=== PATIENT | male | born 1930 | race Caucasian/White ===

== ENCOUNTER 2016-11-14 09:03 | Day surgery (SDC) | payer MEDICARE, BC ==
[~2016-11-14] VITALS: Ht 165.1 cm; Wt 70.0 kg
[~2016-11-14 09:03] MED LIST: DICL75TA2 PO; DIVA500T33 PO; LANS15CA19 PO; RANI-270 PO; SMV40T PO; VALS80TA2 PO; ZOLP10TA PO
[2016-11-14 09:37] VITALS: Ht 165.1 cm; Wt 70.0 kg
[2016-11-14] MEDS ORDERED: PROPOFOL 20 ML ONE (09:51)
[2016-11-14 10:00] VITALS: BP 126/64; PULSE 81; RESP 16
[2016-11-14 10:55] VITALS: BP 122/78; PULSE 68; RESP 16
--- NOTE | 2016-11-14 12:26 | GILP ---
DATE OF PROCEDURE: 11/14/2016 NAME OF PROCEDURE: Esophagogastroduodenoscopy and biopsy. SURGEON: Tahir Morley MD PREOPERATIVE DIAGNOSIS: Dysphagia. POSTOPERATIVE DIAGNOSES: 1. Tortuous esophagus. 2. No esophageal stricture was identified. 3. Status post partial gastrectomy. 4. Severe bile reflux gastritis. 5. Billroth II Gastrojejunostomy. 6. Gastric mucosal biopsies were taken for Helicobacter pylori test. INDICATION FOR THE PROCEDURE: Mr. Niranjan Olivarez is an 86-year-old male patient who had dysphagia. The patient was scheduled for endoscopic examination for further evaluation. The procedure and possible complications are well explained to the patient. He understood and conse nted to the procedure. DESCRIPTION OF PROCEDURE: Under the influence of anesthesia, the gastroscope was carefully introduc ed into the esophagus and under direct vision, it was advanced to the stomach and through the anasto mosis into the small bowel loops. FINDINGS: ESOPHAGUS: The patient had a very tortuous esophagus. There was no stricture or neoplasm identifie d. STOMACH: The patient had partial gastrectomy with Billroth II gastrojejunostomy. The patient had s evere bile reflux gastritis. Gastric mucosal biopsies were taken for H. pylori test. The small bow el loops were normal. He tolerated the procedure very well and there was no complication from the procedure. At the end o f the procedure, he was awake with stable vital signs and he was discharged home to the care of his family. IMPRESSION: 1. 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 2. No stricture or neoplasm was identified. 3. Status post partial gastrectomy with Billroth II gastrojejunostomy. 4. Severe bile reflux gastritis. 5. Biopsy was taken for Helicobacter pylori test. PLAN: We will try calcium channel kailey, diltiazem ER 60 mg twice a day, which may relax the eso phagus, and which may help with dysphagia. The patient was advised to take small meals at a time an d to drink liquids in between the meals. Dictated By: TAHIR LANGE/NTS Conf#: [id number] DID#: [id number] CC: TAHIR MORLEY MD;*EndCC*
--- NOTE | 2016-11-14 16:58 | CONS ---
DATE OF ADMISSION: 11/14/2016 DATE OF CONSULTATION: TYPE OF CONSULTATION: Preoperative gastroenterology. Dear Dr. Norberto Layton: I thank you very much for this kind referral. HISTORY OF PRESENT ILLNESS: Mr. Niranjan Olivarez is an 86-year-old male patient who has been referred to me for further evaluation of dysphagia. The patient says he has got difficulty in swallowing solid and liquid. There is no past history of esophageal stricture or neoplasm. His appetite has been somewhat poor. He is not taking any nonsteroidal anti-inflammatory agents. The patient has history of peptic ulcer disease, and he is status post partial gastrectomy. He is status post cholecystectomy. He also had surgery for common bile duct stone. The patient had liver abscess in the past. There is no other history of liver disease. The patient has history of colon polyps. He denies any history of change in the bowel habit or rectal bleeding. He is hypertensive. He is not a diabetic. He does not have any heart disease. The patient has history of chronic obstructive pulmonary disease. He also has hyperlipidemia. He has history of seizure disorder. SOCIAL HISTORY: He used to smoke; now he has quit smoking. He does not abuse alcohol. FAMILY HISTORY: Negative for gastrointestinal tract neoplasm. ALLERGIES: THERE IS NO HISTORY OF SIGNIFICANT DRUG ALLERGY. MEDICATIONS: He takes medicines for high blood pressure, hyperlipidemia and seizure disorder. He does not remember the names. PHYSICAL EXAMINATION: VITAL SIGNS: He is 5 feet 5 inches tall, and he weighs 149 pounds. BMI 25. Blood pressure 124/78. HEART: Normal first and second heart sounds. LUNGS: Clear. ABDOMEN: Soft without any distention. Liver and spleen are not palpable. There are no masses. There is no focal tenderness. Normal bowel sounds are heard. CENTRAL NERVOUS SYSTEM: Examination does not reveal any focal neurological deficit. IMPRESSION: 1. Dysphagia. 2. History of peptic ulcer disease. 3. Status post partial gastrectomy. 4. Status post common bile duct stone removal. 5. Status post cholecystectomy. 6. History of liver abscess. 7. History of colon polyps. 8. Hypertension. 9. Chronic obstructive pulmonary disease. 10. Hyperlipidemia. 11. History of seizure disorder. PLAN: 1. Barium swallow for further evaluation. 2. Following barium swallow the patient may need endoscopy and possible dilatation. 3. He will need monitored anesthesia care for the procedure. 4. Follow up with the primary MD for the management of hypertension. I thank you once again. With warmest personal regards, Dictated By: TAHIR LANGE/NOVA Conf#: [id number] DID#: [id number] MTDD
== END 2016-11-14 11:17 | disposition home or self-care (01) ==
LOC: GIL 09:03
PROVIDERS: ATTEND Internal Medicine Gastroenterology
DX: K29.60 Other gastritis without bleeding (principal); I10 Essential (primary) hypertension; E78.5 Hyperlipidemia, unspecified; J44.9 Chronic obstructive pulmonary disease, unspecified
CPT/HCPCS: 87081

== ENCOUNTER 2018-07-18 12:52 | Emergency (ER) | END 2018-07-18 20:07 | disposition short-term general hospital (02) ==

== ENCOUNTER 2018-10-29 17:17 | Inpatient (IN) | payer MEDICARE, BC ==
[~2018-10-29] VITALS: Ht 157.5 cm; Wt 65.0 kg
[~2018-10-29 17:17] MED LIST changes: +ASPI-903 PO; +CARB1TAB2 PO; +CLOP75TA27 PO; -DICL75TA2 PO; +ESOM40CA PO; -LANS15CA19 PO; +LOSA50TA14 PO; +METO-429 PO; +POTA20TA96 PO; -RANI-270 PO; +SIMV40TA3 PO; -SMV40T PO; +TEMA30CA PO; -VALS80TA2 PO; -ZOLP10TA PO
[2018-10-29 17:20] VITALS: Ht 157.5 cm; Wt 65.0 kg
[2018-10-29] MEDS ORDERED: ESOM40CA PO (18:58)
[2018-10-29] MEDS ORDERED: DIVA-48 PO (18:58)
[2018-10-29] MEDS ORDERED: METO-429 PO (18:59)
[2018-10-29] MEDS ORDERED: POTA10TA37 PO (19:00)
[2018-10-29] MEDS ORDERED: TEMA30CA PO (19:01)
[2018-10-29] MEDS ORDERED: SIMV40TA2 PO (19:01)
[2018-10-29] MEDS ORDERED: ONDANSETRON 4 MG INJ IV PRN (21:30)
[2018-10-29] MEDS ORDERED: morphine 2 MG INJ IV PRN (21:30)
[2018-10-29] MEDS ORDERED: NACL 0.9% 3 ML SYG IV SCH (21:30)
[2018-10-29] MEDS ORDERED: LABETALOL HCL 20MG INJ IV PRN (21:30)
[2018-10-29] MEDS ORDERED: SOD CHLORIDE 0.9% 100 ML ONE (21:44)
[2018-10-29] MEDS ORDERED: IOHEXOL 100 ML ONE (21:44)
[2018-10-29] MEDS: VALPROATE INJ 500 MG in SOD CHLORIDE 0.9% 50 ML IVPB SCH (21:46)
[2018-10-29] MEDS: SOD CHLORIDE 0.9% 1,000 ML IV SCH (21:46)
[2018-10-29] MEDS ORDERED: LIDOCAINE 5% PATCH TD PRN (22:00)
--- NOTE | 2018-10-29 22:07 | HP ---
Date/Time of Note Date/Time of Note DATE: 10/29/18 TIME: 22:06 Assessment/Plan VTE Prophylaxis Pharmacological prophylaxis: other Lines/Catheters IV Catheter Type (from Nrsg): Saline Lock Assessment/Plan Hospital Course Objective Physical exam General: Patient is laying in bed and answers questions appropriately Mentation: Patient is alert and oriented 4, Head: Normocephalic atraumatic Eyes: EOMI, pupils reactive to light Neck: Supple, nontender, midline Respiratory: Clear to auscultation bilaterally Cardiovascular: regular rate, no obvious murmurs Gastrointestinal: non-tender to palpation, bowel sounds heard. Neurological: Moves all extremities spontaneously, equal bilateral muscle strength in lower extremity, however right upper extremity is marginally weaker when compared to the left upper extremity with mild numbness Musculoskeletal: Right rib area tender Assessment and plan Acute versus acute on chronic subarachnoid hemorrhage -Unsure if the brain bleed was actually a subarachnoid hemorrhage at the previous hospital, even if it was, ER physician spoke to the radiologist who said that what is going on is an acute phenomenon. -Neurosurgery, Dr. Lind on board, recs CT angio for aneurysm -Neurology, Dr. collado, consulted -Patient has been off aspirin and Plavix after extensive confirmation with both patient's daughter and patient's for approximately 8 days and was also given transfusions at [facility] for previous brain bleed. -Patient on Depakote at home for mood disorder, may help for possible seizures as well, continue IV formulation -N.p.o. -Control blood pressure -IV fluid Right upper extremity numbness -Patient is not a TPA candidate given over 48 hours since onset as well as current brain bleed -Neurology has been consulted, Dr. Collado Right rib pain -Due to mechanical fall versus syncope -Rib x-ray pending -Lidocaine patch and IV pain medication as needed Questionable pneumonia on chest x-ray -Unlikely, however will start empiric antibiotics as patient was recently hospitalized for multiple days, will defer to day team to titrate off based on symptoms and other findings. Mechanical fall versus syncope -Unsure which actually happened, patient does state that he passes out when he does fall, MRI is recommended once patient is more stable -Echo and ultrasound carotid Mood disorder, bipolar -Continue Depakote IV Hypertension, questionable coronary artery disease -Off aspirin Plavix for over 1 week given previous diagnosis of brain bleed at outside hospital -Labetalol as needed to control blood pressure -Resume home meds when able to tolerate p.o. GERD -Protonix IV Disposition -ICU care, neurosurgery and neurology recommendations appreciated, repeat CT scans pending Result Diagram: 10/29/18190610/29/181906 Results 24hrs Laboratory Tests Test 10/29/18 19:07 10/29/18 19:17 White Blood Count 5.7 Red Blood Count 3.19 L Hemoglobin 9.9 L Hematocrit 30.9 L Mean Corpuscular Volume 96.9 Mean Corpuscular Hemoglobin 31.0 Mean Corpuscular Hemoglobin Concent 32.0 Red Cell Distribution Width 15.6 H Platelet Count 92 L Mean Platelet Volume 9.7 Immature Granulocytes % 1.000 H Neutrophils % 55.9 Lymphocytes % 27.8 Monocytes % 13.5 H Eosinophils % 1.6 Basophils % 0.2 Nucleated Red Blood Cells % 0.0 Immature Granulocytes # 0.060 H Neutrophils # 3.2 Lymphocytes # 1.6 Monocytes # 0.8 Eosinophils # 0.1 Basophils # 0.0 Nucleated Red Blood Cells # 0.0 Sodium Level 142 Potassium Level 4.6 Chloride Level 107 Carbon Dioxide Level 27 Anion Gap 8 Blood Urea Nitrogen 12 Creatinine 1.00 Est Glomerular Filtrat Rate mL/min Glucose Level 84 Calcium Level 8.3 L Total Bilirubin 0.1 L Direct Bilirubin 0.00 Indirect Bilirubin 0.1 Aspartate Amino Transf (AST/SGOT) 17 Alanine Aminotransferase (ALT/SGPT) 18 Alkaline Phosphatase 52 Total Protein 5.8 L Albumin 3.0 L Globulin 2.80 Albumin/Globulin Ratio 1.07 Lipase 121 Bedside Urine pH (LAB) 6.0 Bedside Urine Protein (LAB) Negative Bedside Urine Glucose (UA) Negative Bedside Urine Ketones (LAB) 1+ H Bedside Urine Blood Negative Bedside Urine Nitrite (LAB) Negative Bedside Urine Leukocyte Esterase (L Negative HPI/ROS Admit Date/Time Admit Date/Time Hx of Present Illness Patient is a elderly male with a past medical history significant for recent brain bleed at [facility], dyslipidemia, bipolar, acid reflux who presents to [facility] after continuing to fall and having right upper extremity numbness and difficulty ambulating since discharged approximately 5 days ago from [facility]. Patient was originally admitted to [facility] for a fall and patient had 7 stitches as well as a diagnosis of some sort of brain bleed, patient and patient's family did not know the exact terminology they think that it may be a subarachnoid hemorrhage. Patient was explained to stop aspirin and Plavix and has been off aspirin and Plavix for at least 1 week at this time. However patient continued to have mobility issues after discharge and fell yesterday hurting his right rib area. Patient stated that the numbness associated with the right upper extremity has been going on for the past 2 days has not worsened and affected his strength. Patient does not complaining of any muscle weakness at this time but states that he really has difficulty moving due to the pain of his right rib area. Patient denies chest pain, shortness of breath, nausea, vomiting, abdominal pain, leg pain PMH/Family/Social Past Medical History Medications Current Medications Sodium Chloride 1,000 ml @ 70 mls/hr [id number] IV Last administered on 10/29/18at 21:46; Admin Dose 70 MLS/HR; Start 10/29/18 at 21:20 IV Flush (NS 3 ml) 3 ml PER PROTOCOL IV ; Start 10/29/18 at 21:30 Ondansetron HCl (Zofran Inj) 4 mg Q6H PRN IV NAUSEA/VOMITING; Start 10/29/18 at 21:30 Morphine Sulfate (morphine) 2 mg Q4H PRN IV .PAIN 7-10; Start 10/29/18 at 21:30 Pantoprazole (Protonix Iv) 40 mg DAILY@06 IV ; Start 10/30/18 at 06:00 Labetalol HCl (Labetalol) 10 mg Q4 PRN IV sbp >160; Start 10/29/18 at 21:30 Valproate Sodium 500 mg/Sodium Chloride 55 ml @ 55 mls/hr TID IVPB Last administered on 10/29/18at 21:46; Admin Dose 55 MLS/HR; Start 10/29/18 at 21:30 Coded Allergies: No Known Allergies (Verified Allergy, Mild, 10/29/18) Social History Smoking Status: Former smoker Exam/Review of Systems Vital Signs Vitals Vital Signs Date Temp Pulse Resp B/P (MAP) Pulse Ox O2 O2 Flow FiO2 Time Delivery Rate 10/29/18 97.5 56 20 131/50 99 Room Air 18:46 (77) ADA GARNER Oct 29, 2018 22:07
[2018-10-30] VITALS (30 sets, daily range): BP systolic 101–162; BP diastolic 52–89; PULSE 51–70; RESP 15–22
--- NOTE | 2018-10-30 00:10 | ERD ---
ER Documentation Chief Complaint Chief Complaint fall HPI The patient is a 88-year-old male, presenting to the ER because of right-sided chest pain, right upper extremity weak after he fell last night. He denies any head trauma, headache, facial pain, neck pain, chest pain, dyspnea, abdominal pain, vomiting. He was admitted at [facility] a week ago due to head trauma, according to the daughter he had an intracranial bleed, details unclear Past medical history: Hypertension, dyslipidemia, CAD, epilepsy, COPD, bipolar Past surgical history: Abdominal aortic aneurysm repair, partial gastrectomy, appendectomy, cholecystectomy ROS All systems reviewed and are negative except as per history of present illness. Medications Home Meds Reported Medications Temazepam* (Temazepam*) 30 Mg Capsule, 30 MG PO HS PRN for INSOMNIA, CAP 10/29/18 Simvastatin* (Zocor*) 40 Mg Tablet, 40 MG PO QHS, #30 TAB 10/29/18 Potassium Chloride* (K-Dur*) 10 Meq Tab.prt.sr, 10 MEQ PO DAILY, TAB 10/29/18 Metoprolol Tartrate* (Lopressor*) 50 Mg Tab, 50 MG PO BID, #60 TAB 10/29/18 Esomeprazole Mag Trihydrate (Nexium) 40 Mg Capsule.dr, 40 MG PO DAILY, #30 CAP 10/29/18 Divalproex Sodium* (Depakote*) 500 Mg Tablet.dr, 500 MG PO TID, #90 TAB 10/29/18 Discontinued Reported Medications Temazepam* (Temazepam*) 30 Mg Capsule, 30 MG PO HS PRN for INSOMNIA, CAP 07/18/18 Metoprolol Tartrate* (Lopressor*) 50 Mg Tab, 50 MG PO BID, #60 TAB 07/18/18 Clopidogrel Bisulfate (Clopidogrel) 75 Mg Tablet, 75 MG PO DAILY, #30 TAB 07/18/18 Aspirin* (Aspirin* Chew) 81 Mg Tab.chew, 81 MG PO DAILY, TAB.CHEW 07/18/18 Carbidopa/Levodopa (Sinemet 25-100 mg Tablet) 1 Each Tablet, 1 EACH PO TID, TAB 07/18/18 Potassium Chloride* (Potassium Chloride*) 20 Meq Tablet.er, 10 MEQ PO DAILY, TAB.SA 07/18/18 Losartan Potassium* (Losartan Potassium*) 50 Mg Tablet, 50 MG PO DAILY, TAB 07/18/18 Esomeprazole Mag Trihydrate (Nexium) 40 Mg Capsule.dr, 40 MG PO AC BREAKFAST, #30 CAP 07/18/18 Simvastatin (Simvastatin) 40 Mg Tablet, 40 MG PO DAILY 07/16/11 Divalproex Sodium (Depakote) 500 Mg Tablet.dr, 500 MG PO TID 07/16/11 Allergies Allergies: Coded Allergies: No Known Allergies (Verified Allergy, Mild, 10/29/18) PMhx/Soc History of Surgery: Yes (PARTIAL GASTRECTOMY, APPY, OPEN CHOLEY) Anesthesia Reaction: No Hx Neurological Disorder: Yes (SEIZURE DISORDER) Hx Respiratory Disorders: Yes (COPD) Hx Cardiac Disorders: Yes (HTN, HIGH CHOL) Hx Psychiatric Problems: Yes (BIPOLAR) Hx Miscellaneous Medical Probl: Yes (Abdominal aneurysm) Hx Alcohol Use: No Hx Substance Use: No Hx Tobacco Use: No (QUIT 7 YRS AGO) Smoking Status: Former smoker Physical Exam Vitals Vital Signs Date Temp Pulse Resp B/P (MAP) Pulse Ox O2 O2 Flow FiO2 Time Delivery Rate 10/29/18 58 17 142/67 98 Room Air 23:00 (92) 10/29/18 75 20 123/91 99 Room Air 22:00 (102) 10/29/18 60 18 131/61 99 Room Air 21:00 (84) 10/29/18 61 19 124/61 99 Room Air 20:00 (82) 10/29/18 64 19 125/62 99 Room Air 19:00 (83) 10/29/18 97.5 56 20 131/50 99 Room Air 18:46 (77) 10/29/18 98.1 64 19 114/61 100 17:20 (78) Physical Exam Const: No acute distress. Head: Atraumatic. left parietal with ladarius Eyes: Normal Conjunctiva. ENT: Normal External Ears, Nose and Mouth. Neck: Full range of motion. No meningismus. Resp: Clear to auscultation bilaterally. Cardio: Regular rate and rhythm. Abd: Soft, non distended, normal bowel sounds, non tender. Skin: No petechiae or rashes. Back: No midline or flank tenderness. Ext: No cyanosis, or edema. Ecchymosis Neur: Awake and alert. No focal deficit Psych: Normal Mood and Affect. Result Diagram: 2/13/19 1907 2/13/19 1907 Results 24 hrs Laboratory Tests Test 10/29/18 19:07 10/29/18 19:17 White Blood Count 5.7 10^3/ul Red Blood Count 3.19 10^6/ul Hemoglobin 9.9 g/dl Hematocrit 30.9 % Mean Corpuscular Volume 96.9 fl Mean Corpuscular Hemoglobin 31.0 pg Mean Corpuscular Hemoglobin Concent 32.0 g/dl Red Cell Distribution Width 15.6 % Platelet Count 98 10^3/UL Mean Platelet Volume 9.7 fl Immature Granulocytes % 1.000 % Neutrophils % 55.9 % Lymphocytes % 27.8 % Monocytes % 13.5 % Eosinophils % 1.6 % Basophils % 0.2 % Nucleated Red Blood Cells % 0.0 /100WBC Immature Granulocytes # 0.060 10^3/ul Neutrophils # 3.2 10^3/ul Lymphocytes # 1.6 10^3/ul Monocytes # 0.8 10^3/ul Eosinophils # 0.1 10^3/ul Basophils # 0.0 10^3/ul Nucleated Red Blood Cells # 0.0 10^3/ul Prothrombin Time 14.2 Sec Prothrombin Time Ratio 1.1 INR International Normalized Ratio 1.09 Activated Partial Thromboplast Time 29.0 Sec Thrombin Time 15.4 SEC Sodium Level 142 mmol/L Potassium Level 4.6 mmol/L Chloride Level 107 mmol/L Carbon Dioxide Level 27 mmol/L Anion Gap 8 Blood Urea Nitrogen 12 mg/dl Creatinine 1.00 mg/dl Est Glomerular Filtrat Rate mL/min mL/min Glucose Level 84 mg/dl Calcium Level 8.3 mg/dl Total Bilirubin 0.1 mg/dl Direct Bilirubin 0.00 mg/dl Indirect Bilirubin 0.1 mg/dl Aspartate Amino Transf (AST/SGOT) 17 IU/L Alanine Aminotransferase (ALT/SGPT) 18 IU/L Alkaline Phosphatase 52 IU/L Total Protein 5.8 g/dl Albumin 3.0 g/dl Globulin 2.80 g/dl Albumin/Globulin Ratio 1.07 Lipase 121 U/L Valproic Acid (Depakene) Level 89 ug/ml Bedside Urine pH (LAB) 6.0 Bedside Urine Protein (LAB) Negative Bedside Urine Glucose (UA) Negative Bedside Urine Ketones (LAB) 1+ Bedside Urine Blood Negative Bedside Urine Nitrite (LAB) Negative Bedside Urine Leukocyte Esterase (L Negative Current Medications Medications Dose Sig/Kevin Start Time Status Last (Trade) Ordered Route PRN Stop Time Admin Dose Reason Admin Sodium 1,000 ml @ [id number] IV 10/29/18 10/29/18 Chloride 70 mls/hr 21:20 21:46 IV Flush 3 ml PER 10/29/18 (NS 3 ml) PROTOCOL IV 21:30 Ondansetron 4 mg Q6H PRN 10/29/18 HCl (Zofran IV 21:30 Inj) NAUSEA/VOMITI NG Morphine 2 mg Q4H PRN 10/29/18 Sulfate IV .PAIN 21:30 (morphine) 7-10 40 mg DAILY@06 10/30/18 Pantoprazole IV 06:00 (Protonix Iv) Labetalol 10 mg Q4 PRN IV 10/29/18 HCl sbp >160 21:30 (Labetalol) Valproate 55 ml @ 55 TID IVPB 10/29/18 10/29/18 Sodium 500 mls/hr 21:30 21:46 mg/Sodium Chloride IV Flush 10 ml STK-MED 10/29/18 DC 10/29/18 (NS 10 ml) ONCE .ROUTE 21:44 21:53 10/29/18 21:45 Sodium 100 ml @ ud STK-MED 10/29/18 DC 10/29/18 Chloride ONCE .ROUTE 21:44 21:53 10/29/18 21:45 Iohexol 100 ml @ ud STK-MED 10/29/18 DC 10/29/18 ONCE .ROUTE 21:44 21:54 10/29/18 21:45 Cefepime HCl 50 ml @ Q12 IVPB 10/29/18 100 mls/hr 22:00 Lidocaine 1 patch DAILY PRN 10/29/18 (Lidoderm) TD right rib 22:00 pain Procedures/[place] [id number] Radiology Main Line: [phone] DIAGNOSTIC IMAGING REPORT Patient: INOCENTE ESPOSITO : 1930 Age: 88 Sex: M MR #: [id number] DOS: 10/29/18 1905 Ordering MD: MITCH BEAULIEU MD Location: E/R Room/Bed: PROCEDURE: CT Head without. CLINICAL INDICATION: Trauma status post fall. TECHNIQUE: The study was performed utilizing a multi-slice, multidetector CT scanner. Direct spiral 1 mm axial sections were obtained through the head without the use of intravenous contrast material. 1 or more of the following dose reduction techniques were utilized: Automated exposure control, adjustment of the mA and/or kV according to patient's size, iterative reconstruction technique. Coronal and sagittal reformations were obtained. The images were reviewed on a PACS workstation. DICOM images are available. RADIATION DOSE: CTDIvol: 39.2 mGy mGy DLP: 634.23 mGy.cm mGy-cm COMPARISON: 07/18/2018 FINDINGS: There is a mild amount of subarachnoid hemorrhage involving the left superior frontal lobe (axial series image 24), involving the precentral gyrus. There is a mild amount of subarachnoid hemorrhage involving the right parietal lobe sees axial series image 25) as well as involving the right frontal operculum (axial series image 13). There is no evidence of subdural hemorrhage. There is no intraparenchymal hemorrhage, mass lesion, midline shift or hydrocephalus. There is moderate prominence of the cerebral sulci, lateral and third ventricles. There is mild to moderate patchy periventricular and subcortical white matter hypodensity. There is mild arteriosclerotic calcification of the parasellar internal carotid arteries. The uriarte-white matter differentiation is preserved. The basal cisterns are patent. The midline structures are intact. 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 The orbits, calvarium and extracranial soft tissues are normal in appearance. The visualized paranasal sinuses, mastoid air cells and middle ear cavities are normally aerated. There are shahid gical ladarius in the left parietal soft tissues, from laceration repair. IMPRESSION: 1. Hyperdense/acute subarachnoid hemorrhage involving the left superior frontal lobe, right superior parietal lobe, and right frontal operculum. No significant gyral swelling or evidence of infarct at this time. No definite subdural or epidural hemorrhage is seen. 2. Moderate peripheral and central cerebral volume loss. 3. Mild to moderate patchy periventricular and subcortical white matter hypodensity, likely related to chronic microangiopathic changes. 4. No intraparenchymal hemorrhage, mass lesion or hydrocephalous. CRITICAL RESULT: The above findings were discussed with Patient's physician Mitch Beaulieu by telephone on 10/29/2018 8:41:32 PM. RPTAT: HGAS .Washington Knight MD, Date Time Electronically viewed and signed by .Washington Knight MD, on 10/29/2018 20:46 .S/ CC: MITCH BEAULIEU MD [id number] [place] [id number] Radiology Main Line: [phone] DIAGNOSTIC IMAGING REPORT Patient: INOCENTE ESPOSITO DOB: 1930 Age: 88 Sex: M MR #: [id number] DOS: 10/29/18 190 Ordering MD: MITCH BEAULIEU MD Location: E/R Room/Bed: PROCEDURE: XR Chest. CLINICAL INDICATION: Trauma TECHNIQUE: Frontal chest x-ray was obtained. COMPARISON: Chest x-ray January 03, 2017 FINDINGS: The heart is not enlarged. Mediastinum is not widened. There is nodular consolidation in the left perihilar mid lung field.. Lungs are clear of any infiltrates. There is no effusion or pneumothorax. The osseous structures appear normal. IMPRESSION: Nodular infiltrate in the perihilar left mid lung field. Question contusion versus pneumonia. No fracture, hemothorax or pneumothorax is visualized. .Jorge Abrams MD, Date Time Electronically viewed and signed by .Jorge Abrams MD, MD on 10/29/2018 19:43 .A/ CC: MITCH BEAULIEU MD [phone] [place] [address] Radiology Main Line: [phone] DIAGNOSTIC IMAGING REPORT Patient: INOCENTE ESPOSITO : 1930 Age: 88 Sex: M [id number]: 10/29/18 0000 Ordering MD: ADA HANDLEY DO Location: E/R Room/Bed: PROCEDURE: Xray right ribs. CLINICAL INDICATION: Trauma. Right rib pain. TECHNIQUE: Three views of the right ribs. COMPARISON: None available. FINDINGS: There is several old healed fractures of the lower right ribs. There is no acute fracture. There is no lytic or blastic lesion. The right lung is unremarkable. Right chest wall soft tissues are normal. IMPRESSION: 1. There are old healed right rib fractures. 2. No acute right rib fracture. 3. Otherwise unremarkable study. RPTAT: QQ .Saad Eddy MD, Date Time Electronically viewed and signed by .Saad Eddy MD, MD on 10/29/2018 22:38 .R/ CC: ADA HANDLEY [phone] EKG: Read by emergency physician Rate/Rhythm: Normal Sinus Rhythm 61 beats/min QRS, ST, T-waves: No ST elevation, no T inversion, LAD Impression: Abnormal EKG Consultation: I discussed the patient with the on-call neurosurgeon Dr Soliman, was made aware of the lab, the treatment, the CT scan finding. He accepted the consult and recommended CTA MEDICAL MAKING DECISION: The patient is a 88-year-old male, presenting with acute subarachnoid hemorrhage, ?nodular infiltrate. I do not suspect the patient had pneumonia The differential diagnoses considered include but are not limited to subarachnoid hemorrhage, occult trauma, CVA, meningitis, encephalitis, hypertension, tension, migraine, cluster, narcotic withdrawal, cervical spine disease. Departure Diagnosis: Primary Impression: Subarachnoid hemorrhage Additional Impressions: Anemia Thrombocytopenia Condition: Critical Comments Critical Care: Time: 35 minutes excluding all billable procedures. Treatments/Evaluations: Close monitoring and treatment of unstable vital signs, cardiorespiratory, and neurologic status, while maintaining tight balance of fluid, respiratory, and cardiac interventions. I discussed the findings with the patient. I discussed the patient with the hospitalist Dr Handley at 9:10p. who was made aware of the lab, the treatment, the patient condition. The patient is admitted to ICU Disclaimer: Inadvertent spelling and grammatical errors are likely due to EHR/dictation software use and do not reflect on the overall quality of patient care. Also, please note that the electronic time recorded on this note does not necessarily reflect the actual time of the patient encounter. MITCH BEAULIEU MD Oct 30, 2018 00:10
[2018-10-30] MEDS: CEFEPIME 1GM/50 ML (PMX) 50 ML IVPB SCH ×3 (00:22→21:59)
[2018-10-30] MEDS: PANTOPRAZOLE 40 MG INJ IV SCH ×2 (05:59→08:43)
[2018-10-30] MEDS: SOD CHLORIDE 0.9% 1,000 ML IV SCH (06:45)
--- NOTE | 2018-10-30 08:00 | CONS ---
Assessment/Plan Assessment/Plan Assessment/Plan (Daily) Traumatic subarachonid hemorrhage; CTH c/w known history of prior fall about a week ago. No acute intracranial process / no indication for neurosurgical intervention. He may eat and transfer out of ICU from my POV. He has symptoms of right sided numbness that may be related to cortical irritation? TIA? he may benefit from neurology evaluation. Consultation Date/Type/Reason Admit Date/Time Date of Consultation: Oct 30, 2018 Type of Consult neurology Reason for Consultation subarachnoid hemorrhage Date/Time of Note DATE: 10/30/18 TIME: 07:50 Hx of Present Illness 88 year old male with history of falls, multiple hospitalizations over the past six months. Was recently discharged from OSH after fall with left parietal laceration repaired with ladarius. CT in ER shows small blush of subacute/ evolving subarachonid hemorrhage. There is no opacification of basilar cisterns or Sylvian fissure. No evidence of aneurysm or other vascular malformation. Past Medical History Home Meds Reported Medications Temazepam* (Temazepam*) 30 Mg Capsule, 30 MG PO HS PRN for INSOMNIA, CAP 10/29/18 Simvastatin* (Zocor*) 40 Mg Tablet, 40 MG PO QHS, #30 TAB 10/29/18 Potassium Chloride* (K-Dur*) 10 Meq Tab.prt.sr, 10 MEQ PO DAILY, TAB 10/29/18 Metoprolol Tartrate* (Lopressor*) 50 Mg Tab, 50 MG PO BID, #60 TAB 10/29/18 Esomeprazole Mag Trihydrate (Nexium) 40 Mg Capsule.dr, 40 MG PO DAILY, #30 CAP 10/29/18 Divalproex Sodium* (Depakote*) 500 Mg Tablet.dr, 500 MG PO TID, #90 TAB 10/29/18 Discontinued Reported Medications Temazepam* (Temazepam*) 30 Mg Capsule, 30 MG PO HS PRN for INSOMNIA, CAP 07/18/18 Metoprolol Tartrate* (Lopressor*) 50 Mg Tab, 50 MG PO BID, #60 TAB 07/18/18 Clopidogrel Bisulfate (Clopidogrel) 75 Mg Tablet, 75 MG PO DAILY, #30 TAB 07/18/18 Aspirin* (Aspirin* Chew) 81 Mg Tab.chew, 81 MG PO DAILY, TAB.CHEW 07/18/18 Carbidopa/Levodopa (Sinemet 25-100 mg Tablet) 1 Each Tablet, 1 EACH PO TID, TAB 07/18/18 Potassium Chloride* (Potassium Chloride*) 20 Meq Tablet.er, 10 MEQ PO DAILY, TAB.SA 07/18/18 Losartan Potassium* (Losartan Potassium*) 50 Mg Tablet, 50 MG PO DAILY, TAB 07/18/18 Esomeprazole Mag Trihydrate (Nexium) 40 Mg Capsule.dr, 40 MG PO AC BREAKFAST, #30 CAP 07/18/18 Simvastatin (Simvastatin) 40 Mg Tablet, 40 MG PO DAILY 07/16/11 Divalproex Sodium (Depakote) 500 Mg Tablet.dr, 500 MG PO TID 07/16/11 Medications Current Medications Sodium Chloride 1,000 ml @ 70 mls/hr [id number] IV Last administered on 10/29/18at 21:46; Admin Dose 70 MLS/HR; Start 10/29/18 at 21:20 IV Flush (NS 3 ml) 3 ml PER PROTOCOL IV ; Start 10/29/18 at 21:30 Ondansetron HCl (Zofran Inj) 4 mg Q6H PRN IV NAUSEA/VOMITING; Start 10/29/18 at 21:30 Morphine Sulfate (morphine) 2 mg Q4H PRN IV .PAIN 7-10; Start 10/29/18 at 21:30 Pantoprazole (Protonix Iv) 40 mg DAILY@06 IV Last administered on 10/30/18at 05:59; Admin Dose 40 MG; Start 10/30/18 at 06:00 Labetalol HCl (Labetalol) 10 mg Q4 PRN IV sbp >160; Start 10/29/18 at 21:30 Valproate Sodium 500 mg/Sodium Chloride 55 ml @ 55 mls/hr TID IVPB Last administered on 10/29/18at 21:46; Admin Dose 55 MLS/HR; Start 10/29/18 at 21:30 Cefepime HCl 50 ml @ 100 mls/hr Q12 IVPB Last administered on 10/30/18at 00:22; Admin Dose 100 MLS/HR; Start 10/29/18 at 22:00 Lidocaine (Lidoderm) 1 patch DAILY PRN TD right rib pain; Start 10/29/18 at 22:00 Allergies: Coded Allergies: No Known Allergies (Verified Allergy, Mild, 10/29/18) Social History Smoking Status: Former smoker Exam/Review of Systems Exam Vitals Vital Signs Date Temp Pulse Resp B/P (MAP) Pulse Ox O2 O2 Flow FiO2 Time Delivery Rate 10/30/18 62 19 150/66 97 Room Air 06:00 (94) 10/30/18 98.4 04:00 Intake and Output 10/29/18 10/29/18 10/30/18 1515:00 23:00 07:00 IntakeIntake Total 70 ml 490 ml OutputOutput Total 950 ml BalanceBalance 70 ml -460 ml Constitutional: alert, oriented, well developed Psych: no complaints, nl mood/affect Head: normocephalic, lacerations Eyes: nl conjunctiva, EOMI ENMT: nl external ears & nose, nl lips & teeth Neck: supple, non-tender 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 Neck non-tender and supple with full ROM. Results Result Diagram: 10/30/18 0540 10/30/18 0540 Results 24hrs Laboratory Tests Test 10/29/18 19:07 10/29/18 19:17 10/30/18 05:40 White Blood Count 5.7 4.3 #L Red Blood Count 3.19 L 3.05 L Hemoglobin 9.9 L 9.5 L Hematocrit 30.9 L 29.0 L Mean Corpuscular Volume 96.9 95.1 Mean Corpuscular Hemoglobin 31.0 31.1 Mean Corpuscular Hemoglobin Concent 32.0 32.8 Red Cell Distribution Width 15.6 H 15.6 H Platelet Count 98 L 84 L Mean Platelet Volume 9.7 9.9 Immature Granulocytes % 1.000 H 1.200 H Neutrophils % 55.9 46.7 Lymphocytes % 27.8 32.9 Monocytes % 13.5 H 16.7 H Eosinophils % 1.6 2.3 Basophils % 0.2 0.2 Nucleated Red Blood Cells % 0.0 0.0 Immature Granulocytes # 0.060 H 0.050 H Neutrophils # 3.2 2.0 Lymphocytes # 1.6 1.4 Monocytes # 0.8 0.7 Eosinophils # 0.1 0.1 Basophils # 0.0 0.0 Nucleated Red Blood Cells # 0.0 0.0 Prothrombin Time 14.2 Prothrombin Time Ratio 1.1 INR International Normalized Ratio 1.09 Activated Partial Thromboplast Time 29.0 Thrombin Time 15.4 Sodium Level 142 140 Potassium Level 4.6 4.2 Chloride Level 107 106 Carbon Dioxide Level 27 27 Anion Gap 8 7 Blood Urea Nitrogen 12 12 Creatinine 1.00 0.96 Est Glomerular Filtrat Rate mL/min Glucose Level 84 77 Calcium Level 8.3 L 8.0 L Total Bilirubin 0.1 L 0.1 L Direct Bilirubin 0.00 0.00 Indirect Bilirubin 0.1 0.1 Aspartate Amino Transf (AST/SGOT) 17 15 Alanine Aminotransferase (ALT/SGPT) 18 18 Alkaline Phosphatase 52 48 Total Protein 5.8 L 5.4 L Albumin 3.0 L 2.7 L Globulin 2.80 2.70 Albumin/Globulin Ratio 1.07 1.00 Lipase 121 Valproic Acid (Depakene) Level 89 Bedside Urine pH (LAB) 6.0 Bedside Urine Protein (LAB) Negative Bedside Urine Glucose (UA) Negative Bedside Urine Ketones (LAB) 1+ H Bedside Urine Blood Negative Bedside Urine Nitrite (LAB) Negative Bedside Urine Leukocyte Esterase (L Negative Hemoglobin A1c 4.8 Magnesium Level 2.0 Triglycerides Level 82 Cholesterol Level 74 L LDL Cholesterol, Calculated 28 HDL Cholesterol 30 L Cholesterol/HDL Ratio 2.4 Medications Medication Current Medications Sodium Chloride 1,000 ml @ 70 mls/hr [id number] IV Last administered on 10/29/18at 21:46; Admin Dose 70 MLS/HR; Start 10/29/18 at 21:20 IV Flush (NS 3 ml) 3 ml PER PROTOCOL IV ; Start 10/29/18 at 21:30 Ondansetron HCl (Zofran Inj) 4 mg Q6H PRN IV NAUSEA/VOMITING; Start 10/29/18 at 21:30 Morphine Sulfate (morphine) 2 mg Q4H PRN IV .PAIN 7-10; Start 10/29/18 at 21:30 Pantoprazole (Protonix Iv) 40 mg DAILY@06 IV Last administered on 10/30/18at 05:59; Admin Dose 40 MG; Start 10/30/18 at 06:00 Labetalol HCl (Labetalol) 10 mg Q4 PRN IV sbp >160; Start 10/29/18 at 21:30 Valproate Sodium 500 mg/Sodium Chloride 55 ml @ 55 mls/hr TID IVPB Last administered on 10/29/18at 21:46; Admin Dose 55 MLS/HR; Start 10/29/18 at 21:30 Cefepime HCl 50 ml @ 100 mls/hr Q12 IVPB Last administered on 10/30/18at 00:22; Admin Dose 100 MLS/HR; Start 10/29/18 at 22:00 Lidocaine (Lidoderm) 1 patch DAILY PRN TD right rib pain; Start 10/29/18 at 22:00 BUFFY ESCALANTE MD Oct 30, 2018 08:00
--- NOTE | 2018-10-30 10:41 | PN ---
Date/Time of Note Date/Time of Note DATE: 10/30/18 TIME: 10:41 Assessment/Plan VTE Prophylaxis SCD applied (from Nsg): Yes Pharmacological prophylaxis: NA/contraindicated Pharm contraindication: bleeding Lines/Catheters IV Catheter Type (from Nrsg): Peripheral IV Urinary Cath still in place: No Assessment/Plan Assessment/Plan 1. Acute ICH, Subarachoid hemorrhage 2. RUE weakness 3. h/o HTN 4. atherosclerotic vascular disease 5. mechanical fall vs syncope 6. H/o HL 7. h/o Partial gastrectomy 8. H/o Bioplar disorder as per history Plan: seen in ICU, s/p Neurosurgery evluation by Dr. 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 Khan has been consulted on the case SCD for DVT prophylaixs will follow up Result Diagram: 10/30/18 0540 10/30/18 0540 Results 24hrs Laboratory Tests Test 10/29/18 19:07 10/29/18 19:17 10/30/18 05:40 White Blood Count 5.7 4.3 #L Red Blood Count 3.19 L 3.05 L Hemoglobin 9.9 L 9.5 L Hematocrit 30.9 L 29.0 L Mean Corpuscular Volume 96.9 95.1 Mean Corpuscular Hemoglobin 31.0 31.1 Mean Corpuscular Hemoglobin Concent 32.0 32.8 Red Cell Distribution Width 15.6 H 15.6 H Platelet Count 98 L 84 L Mean Platelet Volume 9.7 9.9 Immature Granulocytes % 1.000 H 1.200 H Neutrophils % 55.9 46.7 Lymphocytes % 27.8 32.9 Monocytes % 13.5 H 16.7 H Eosinophils % 1.6 2.3 Basophils % 0.2 0.2 Nucleated Red Blood Cells % 0.0 0.0 Immature Granulocytes # 0.060 H 0.050 H Neutrophils # 3.2 2.0 Lymphocytes # 1.6 1.4 Monocytes # 0.8 0.7 Eosinophils # 0.1 0.1 Basophils # 0.0 0.0 Nucleated Red Blood Cells # 0.0 0.0 Prothrombin Time 14.2 Prothrombin Time Ratio 1.1 INR International Normalized Ratio 1.09 Activated Partial Thromboplast Time 29.0 Thrombin Time 15.4 Sodium Level 142 140 Potassium Level 4.6 4.2 Chloride Level 107 106 Carbon Dioxide Level 27 27 Anion Gap 8 7 Blood Urea Nitrogen 12 12 Creatinine 1.00 0.96 Est Glomerular Filtrat Rate mL/min Glucose Level 84 77 Calcium Level 8.3 L 8.0 L Total Bilirubin 0.1 L 0.1 L Direct Bilirubin 0.00 0.00 Indirect Bilirubin 0.1 0.1 Aspartate Amino Transf (AST/SGOT) 17 15 Alanine Aminotransferase (ALT/SGPT) 18 18 Alkaline Phosphatase 52 48 Total Protein 5.8 L 5.4 L Albumin 3.0 L 2.7 L Globulin 2.80 2.70 Albumin/Globulin Ratio 1.07 1.00 Lipase 121 Valproic Acid (Depakene) Level 89 Bedside Urine pH (LAB) 6.0 Bedside Urine Protein (LAB) Negative Bedside Urine Glucose (UA) Negative Bedside Urine Ketones (LAB) 1+ H Bedside Urine Blood Negative Bedside Urine Nitrite (LAB) Negative Bedside Urine Leukocyte Esterase (L Negative Hemoglobin A1c 4.8 Magnesium Level 2.0 Triglycerides Level 82 Cholesterol Level 74 L LDL Cholesterol, Calculated 28 HDL Cholesterol 30 L Cholesterol/HDL Ratio 2.4 Subjective 24 Hr Interval Summary Free Text/Dictation pt remains stable,s/p Neurosurgery evaluation, stable SAH on follow up CT scan Exam/Review of Systems Exam Vitals Vital Signs Date Temp Pulse Resp B/P (MAP) Pulse Ox O2 O2 Flow FiO2 Time Delivery Rate 10/30/18 59 18 99 08:15 10/30/18 97.7 151/70 Room Air 08:00 (97) Intake and Output 10/29/18 10/29/18 10/30/18 1515:00 23:00 07:00 IntakeIntake Total 70 ml 490 ml OutputOutput Total 950 ml BalanceBalance 70 ml -460 ml Constitutional: alert, distress Head: normocephalic Eyes: nl conjunctiva ENMT: nl external ears & nose Neck: supple, non-tender Respiratory: clear to auscultation, normal air movement Cardiovascular: regular rate and rhythm, nl pulses Gastrointestinal: soft Musculoskeletal: nl extremities to inspection, nl gait and stance Neurological: other (alert, awake, no focal deficits) Results Results 24hrs Laboratory Tests Test 10/29/18 19:07 10/29/18 19:17 10/30/18 05:40 White Blood Count 5.7 4.3 #L Red Blood Count 3.19 L 3.05 L Hemoglobin 9.9 L 9.5 L Hematocrit 30.9 L 29.0 L Mean Corpuscular Volume 96.9 95.1 Mean Corpuscular Hemoglobin 31.0 31.1 Mean Corpuscular Hemoglobin Concent 32.0 32.8 Red Cell Distribution Width 15.6 H 15.6 H Platelet Count 98 L 84 L Mean Platelet Volume 9.7 9.9 Immature Granulocytes % 1.000 H 1.200 H Neutrophils % 55.9 46.7 Lymphocytes % 27.8 32.9 Monocytes % 13.5 H 16.7 H Eosinophils % 1.6 2.3 Basophils % 0.2 0.2 Nucleated Red Blood Cells % 0.0 0.0 Immature Granulocytes # 0.060 H 0.050 H Neutrophils # 3.2 2.0 Lymphocytes # 1.6 1.4 Monocytes # 0.8 0.7 Eosinophils # 0.1 0.1 Basophils # 0.0 0.0 Nucleated Red Blood Cells # 0.0 0.0 Prothrombin Time 14.2 Prothrombin Time Ratio 1.1 INR International Normalized Ratio 1.09 Activated Partial Thromboplast Time 29.0 Thrombin Time 15.4 Sodium Level 142 140 Potassium Level 4.6 4.2 Chloride Level 107 106 Carbon Dioxide Level 27 27 Anion Gap 8 7 Blood Urea Nitrogen 12 12 Creatinine 1.00 0.96 Est Glomerular Filtrat Rate mL/min Glucose Level 84 77 Calcium Level 8.3 L 8.0 L Total Bilirubin 0.1 L 0.1 L Direct Bilirubin 0.00 0.00 Indirect Bilirubin 0.1 0.1 Aspartate Amino Transf (AST/SGOT) 17 15 Alanine Aminotransferase (ALT/SGPT) 18 18 Alkaline Phosphatase 52 48 Total Protein 5.8 L 5.4 L Albumin 3.0 L 2.7 L Globulin 2.80 2.70 Albumin/Globulin Ratio 1.07 1.00 Lipase 121 Valproic Acid (Depakene) Level 89 Bedside Urine pH (LAB) 6.0 Bedside Urine Protein (LAB) Negative Bedside Urine Glucose (UA) Negative Bedside Urine Ketones (LAB) 1+ H Bedside Urine Blood Negative Bedside Urine Nitrite (LAB) Negative Bedside Urine Leukocyte Esterase (L Negative Hemoglobin A1c 4.8 Magnesium Level 2.0 Triglycerides Level 82 Cholesterol Level 74 L LDL Cholesterol, Calculated 28 HDL Cholesterol 30 L Cholesterol/HDL Ratio 2.4 Medications Medication Current Medications Sodium Chloride 1,000 ml @ 70 mls/hr [id number] IV Last administered on 10/29/18at 21:46; Admin Dose 70 MLS/HR; Start 10/29/18 at 21:20 IV Flush (NS 3 ml) 3 ml PER PROTOCOL IV ; Start 10/29/18 at 21:30 Ondansetron HCl (Zofran Inj) 4 mg Q6H PRN IV NAUSEA/VOMITING; Start 10/29/18 at 21:30 Morphine Sulfate (morphine) 2 mg Q4H PRN IV .PAIN 7-10; Start 10/29/18 at 21:30 Pantoprazole (Protonix Iv) 40 mg DAILY@06 IV Last administered on 10/30/18at 08:43; Admin Dose 40 MG; Start 10/30/18 at 06:00 Labetalol HCl (Labetalol) 10 mg Q4 PRN IV sbp >160; Start 10/29/18 at 21:30 Valproate Sodium 500 mg/Sodium Chloride 55 ml @ 55 mls/hr TID IVPB Last administered on 10/29/18at 21:46; Admin Dose 55 MLS/HR; Start 10/29/18 at 21:30 Cefepime HCl 50 ml @ 100 mls/hr Q12 IVPB Last administered on 10/30/18at 08:43; Admin Dose 100 MLS/HR; Start 10/29/18 at 22:00 Lidocaine (Lidoderm) 1 patch DAILY PRN TD right rib pain; Start 10/29/18 at 22:00 ROHAN CATALAN MD Oct 30, 2018 10:41
[2018-10-30] MEDS: VALPROATE INJ 500 MG in SOD CHLORIDE 0.9% 50 ML IVPB SCH (11:09)
[2018-10-30] MEDS: METOPROLOL 25 MG TAB PO SCH ×2 (12:30→22:00)
--- NOTE | 2018-10-30 13:42 | CONS ---
Assessment/Plan Assessment/Plan Hospital Course 88 yo M with hx of recent ICH, seizures, and multiple other comorbidities who p/w RUE numbness, difficulty walking, and repeated falls... for which neurology is consulted. Of note, the pt had a recent mechanical GLF c/b head trauma and a tSAH. CTH is notable for an acute SAH... which is perhaps due to his previous fall. Repeat CTH is stable. CUS is unremarkable. P: Obtain neuroimaging from [facility] Await CTA brain Add UDS Hold all antiplatelets/anticoagulation Maintain SBP less than 160 Ok to cont depakote per ops Cont medical management per primary Limit sedating medications where possible PT/OT/ST as necessary Will follow clinically, to recommend neurologic studies, as necessary Consultation Date/Type/Reason Admit Date/Time Type of Consult Neurology Reason for Consultation SAH Requesting Provider: ADA GARNER Date/Time of Note DATE: 10/30/18 TIME: 13:42 Hx of Present Illness 88 yo M with hx of recent ICH at [facility], seizures, Parkinson's, AAA on ASA/Plavix, thrombocytopenia, and other comorbidities who presented to the ED for evaluation of RUE numbness and difficulty walking. History was obtained from pt, daughter, and chart review. Per the pt, he states that he took ambien to go to sleep and when he got out of bed to go to the restroom, he got dizzy and fell. He is unable to recall if he hit his head, though he states that he did hit his head in a recent fall the week before. The daughter at bedside states that the pt seemed to be falling more at night after receiving his pm dose of metoprolol. The pt currently denies headache, weakness, dizziness, lethargy, confusion. He does endorse some RUE numbness which reportedly started just prior to his admission at [facility]. They confirm the story below: Hx of Present Illness Patient is a elderly male with a past medical history significant for recent b rain bleed at [facility], dyslipidemia, bipolar, acid reflux who presents to [facility] after continuing to fall and having right upper extremity numbness and difficulty ambulating since discharged approximately 5 days ago from [facility]. Patient was originally admitted to [facility] for a fall and patient had 7 stitches as well as a diagnosis of some sort of brain bleed, patient and patient's family did not know the exact terminology they think that it may be a subarachnoid hemorrhage. Patient was explained to stop aspirin and Plavix and has been off aspirin and Plavix for at least 1 week at this time. However patient continued to have mobility issues after discharge a nd fell yesterday hurting his right rib area. Patient stated that the numbness associated with the right upper extremity has been going on for the past 2 days has not worsened and affected his strength. Patient does not complaining of any muscle weakness at this time but states that he really has difficulty moving due to the pain of his right rib area. Patient denies chest pain, shortness of br eath, nausea, vomiting, abdominal pain, leg pain negative unless noted otherwise in HPI Exam/Review of Systems Exam Vitals Vital Signs Date Temp Pulse Resp B/P (MAP) Pulse Ox O2 O2 Flow FiO2 Time Delivery Rate 10/30/18 64 12:00 10/30/18 18 99 08:15 10/30/18 97.7 151/70 Room Air 08:00 (97) Intake and Output 10/29/18 10/29/18 10/30/18 1515:00 23:00 07:00 IntakeIntake Total 70 ml 490 ml OutputOutput Total 950 ml BalanceBalance 70 ml -460 ml Exam PE: Gen Appearance: No Apparent Distress HEENT: Normocephalic Cardiovascular: Regular rate Lungs: Clear bilaterally Abdomen: Soft Extremities: Dry NE: The patient was alert and fully oriented.. Language was normal. Fund of knowledge was normal. Pupils were equal and reactive to light. There was no afferent pupillary defect. Visual armstrong were normal. Funduscopic examination was limited. Extra-ocular movements were full. Ptosis was absent. There was no nystagmus. Facial sensation was normal. Face was symmetric with normal strength. Hearing was intact. Palate movements were normal. Neck strength was normal. There was normal tongue bulk and speed of movement. Tone was normal. Muscle bulk was normal. I did not see fasciculations. Arms were strong to confrontation; legs were mildly weak and symmetric. Sensation to light touch was diminished on the R side. Vibration sensation was diminished in his BLE. Temperature and pinprick sensation was normal. Rapid alternating movements were normal. There was no dysmetria. There was no intention tremor. Gait was deferred due to bedrest. Arm and leg reflexes were 2+ and symmetric. Abbott's sign was absent. Plantar responses were flexor. Results Result Diagram: 10/30/18 0540 10/30/18 0540 Results 24hrs Laboratory Tests Test 10/29/18 19:07 10/29/18 19:17 10/30/18 05:40 White Blood Count 5.7 4.3 #L Red Blood Count 3.19 L 3.05 L Hemoglobin 9.9 L 9.5 L Hematocrit 30.9 L 29.0 L Mean Corpuscular Volume 96.9 95.1 Mean Corpuscular Hemoglobin 31.0 31.1 Mean Corpuscular Hemoglobin Concent 32.0 32.8 Red Cell Distribution Width 15.6 H 15.6 H Platelet Count 98 L 84 L Mean Platelet Volume 9.7 9.9 Immature Granulocytes % 1.000 H 1.200 H Neutrophils % 55.9 46.7 Lymphocytes % 27.8 32.9 Monocytes % 13.5 H 16.7 H Eosinophils % 1.6 2.3 Basophils % 0.2 0.2 Nucleated Red Blood Cells % 0.0 0.0 Immature Granulocytes # 0.060 H 0.050 H Neutrophils # 3.2 2.0 Lymphocytes # 1.6 1.4 Monocytes # 0.8 0.7 Eosinophils # 0.1 0.1 Basophils # 0.0 0.0 Nucleated Red Blood Cells # 0.0 0.0 Prothrombin Time 14.2 Prothrombin Time Ratio 1.1 INR International Normalized Ratio 1.09 Activated Partial Thromboplast Time 29.0 Thrombin Time 15.4 Sodium Level 142 140 Potassium Level 4.6 4.2 Chloride Level 107 106 Carbon Dioxide Level 27 27 Anion Gap 8 7 Blood Urea Nitrogen 12 12 Creatinine 1.00 0.96 Est Glomerular Filtrat Rate mL/min Glucose Level 84 77 Calcium Level 8.3 L 8.0 L Total Bilirubin 0.1 L 0.1 L Direct Bilirubin 0.00 0.00 Indirect Bilirubin 0.1 0.1 Aspartate Amino Transf (AST/SGOT) 17 15 Alanine Aminotransferase (ALT/SGPT) 18 18 Alkaline Phosphatase 52 48 Total Protein 5.8 L 5.4 L Albumin 3.0 L 2.7 L Globulin 2.80 2.70 Albumin/Globulin Ratio 1.07 1.00 Lipase 121 Valproic Acid (Depakene) Level 89 Bedside Urine pH (LAB) 6.0 Bedside Urine Protein (LAB) Negative Bedside Urine Glucose (UA) Negative Bedside Urine Ketones (LAB) 1+ H Bedside Urine Blood Negative Bedside Urine Nitrite (LAB) Negative Bedside Urine Leukocyte Esterase (L Negative Hemoglobin A1c 4.8 Magnesium Level 2.0 Triglycerides Level 82 Cholesterol Level 74 L LDL Cholesterol, Calculated 28 HDL Cholesterol 30 L Cholesterol/HDL Ratio 2.4 Medications Medication Current Medications Sodium Chloride 1,000 ml @ 70 mls/hr [id number] IV Last administered on 10/29/18at 21:46; Admin Dose 70 MLS/HR; Start 10/29/18 at 21:20 IV Flush (NS 3 ml) 3 ml PER PROTOCOL IV ; Start 10/29/18 at 21:30 Ondansetron HCl (Zofran Inj) 4 mg Q6H PRN IV NAUSEA/VOMITING; Start 10/29/18 at 21:30 Morphine Sulfate (morphine) 2 mg Q4H PRN IV .PAIN 7-10; Start 10/29/18 at 21:30 Labetalol HCl (Labetalol) 10 mg Q4 PRN IV sbp >160; Start 10/29/18 at 21:30 Cefepime HCl 50 ml @ 100 mls/hr Q12 IVPB Last administered on 10/30/18at 08:43; Admin Dose 100 MLS/HR; Start 10/29/18 at 22:00 Lidocaine (Lidoderm) 1 patch DAILY PRN TD right rib pain; Start 10/29/18 at 22:00 Divalproex Sodium (Depakote) 500 mg TID PO ; Start 10/30/18 at 13:00 Metoprolol Tartrate (Lopressor) 25 mg BID PO ; Start 10/30/18 at 12:30 Atorvastatin Calcium (Lipitor) 40 mg HS PO ; Start 10/30/18 at 21:00 Pantoprazole (Protonix Tab) 40 mg DAILY@06 PO ; Start 10/31/18 at 06:00 Past Medical History reviewed Home Meds Reported Medications Temazepam* (Temazepam*) 30 Mg Capsule, 30 MG PO HS PRN for INSOMNIA, CAP 10/29/18 Simvastatin* (Zocor*) 40 Mg Tablet, 40 MG PO QHS, #30 TAB 10/29/18 Potassium Chloride* (K-Dur*) 10 Meq Tab.prt.sr, 10 MEQ PO DAILY, TAB 10/29/18 Metoprolol Tartrate* (Lopressor*) 50 Mg Tab, 50 MG PO BID, #60 TAB 10/29/18 Esomeprazole Mag Trihydrate (Nexium) 40 Mg Capsule.dr, 40 MG PO DAILY, #30 CAP 10/29/18 Divalproex Sodium* (Depakote*) 500 Mg Tablet.dr, 500 MG PO TID, #90 TAB 10/29/18 Discontinued Reported Medications Temazepam* (Temazepam*) 30 Mg Capsule, 30 MG PO HS PRN for INSOMNIA, CAP 07/18/18 Metoprolol Tartrate* (Lopressor*) 50 Mg Tab, 50 MG PO BID, #60 TAB 07/18/18 Clopidogrel Bisulfate (Clopidogrel) 75 Mg Tablet, 75 MG PO DAILY, #30 TAB 07/18/18 Aspirin* (Aspirin* Chew) 81 Mg Tab.chew, 81 MG PO DAILY, TAB.CHEW 07/18/18 Carbidopa/Levodopa (Sinemet 25-100 mg Tablet) 1 Each Tablet, 1 EACH PO TID, TAB 07/18/18 Potassium Chloride* (Potassium Chloride*) 20 Meq Tablet.er, 10 MEQ PO DAILY, TAB.SA 07/18/18 Losartan Potassium* (Losartan Potassium*) 50 Mg Tablet, 50 MG PO DAILY, TAB 07/18/18 Esomeprazole Mag Trihydrate (Nexium) 40 Mg Capsule.dr, 40 MG PO AC BREAKFAST, #30 CAP 07/18/18 Simvastatin (Simvastatin) 40 Mg Tablet, 40 MG PO DAILY 07/16/11 Divalproex Sodium (Depakote) 500 Mg Tablet.dr, 500 MG PO TID 07/16/11 Medications Current Medications Sodium Chloride 1,000 ml @ 70 mls/hr [id number] IV Last administered on 10/29/18at 21:46; Admin Dose 70 MLS/HR; Start 10/29/18 at 21:20 IV Flush (NS 3 ml) 3 ml PER PROTOCOL IV ; Start 10/29/18 at 21:30 Ondansetron HCl (Zofran Inj) 4 mg Q6H PRN IV NAUSEA/VOMITING; Start 10/29/18 at 21:30 Morphine Sulfate (morphine) 2 mg Q4H PRN IV .PAIN 7-10; Start 10/29/18 at 21:30 Labetalol HCl (Labetalol) 10 mg Q4 PRN IV sbp >160; Start 10/29/18 at 21:30 Cefepime HCl 50 ml @ 100 mls/hr Q12 IVPB Last administered on 10/30/18at 08:43; Admin Dose 100 MLS/HR; Start 10/29/18 at 22:00 Lidocaine (Lidoderm) 1 patch DAILY PRN TD right rib pain; Start 10/29/18 at 22:00 Divalproex Sodium (Depakote) 500 mg TID PO ; Start 10/30/18 at 13:00 Metoprolol Tartrate (Lopressor) 25 mg BID PO ; Start 10/30/18 at 12:30 Atorvastatin Calcium (Lipitor) 40 mg HS PO ; Start 10/30/18 at 21:00 Pantoprazole (Protonix Tab) 40 mg DAILY@06 PO ; Start 10/31/18 at 06:00 Allergies: Coded Allergies: No Known Allergies (Verified Allergy, Mild, 10/29/18) Past Surgical History reviewed Social History reviewed Smoking Status: Former smoker PRANAY KELSEY NP Oct 30, 2018 13:42
[2018-10-30] MEDS: DIVALPROEX (EC) 500 MG TAB PO SCH ×2 (14:35→21:59)
--- NOTE | 2018-10-30 15:09 | RADRPT ---
Echocardiogram Report Patient Name: INOCENTE ESPOSITOPatient ID: [id number] : 1930 (88y 8m)Study Date: 10/30/2018 7:04:37 AM Gender: MAccession #: [id number] Tech: Eileen Gupta [facility] Location: 120 Ref.Physician: ADA GARNER Height(Cm): BSA: Weight(Kg): Quality: AdequateAccount #: Procedures: Echocardiographic Report: Transthoracic echocardiogram with complete 2D, M-Mode, and doppler examination. Indications: Syncope. Measurements: 2D/M Mode Doppler Measurement Value Normal Range Measurement Value Normal Range LVIDd 2D 3.0 [ 4.2 - 5.8 ] cm AV Peak Elliott 1.1 [ 100.0 - 170.0 ] cm/sec LVIDs 2D 2.2 [ 2.5 - 4.0 ] cm AV Peak PG 4.0 [ 2.0 - 9.0 ] mmHg LVPWd 2D 1.1 [ 0.6 - 1.0 ] cm LVOT Peak Elliott 0.9 [ 70.0 - 110.0 ] cm/sec IVSd 2D 1.0 [ 0.6 - 1.0 ] cm LVOT Peak PG 3.0 [ 2.0 - 6.0 ] mmHg IVS/LVPW 2D 0.9 ratio MV E Peak Elliott 0.7 [ 60.0 - 130.0 ] cm/sec AoR Diam 2D 3.5 [ 2.6 - 3.4 ] cm MV A Peak Elliott 0.8 [ 100.0 - 120.0 ] cm/sec LA/Ao 2D 1 ratio MV E/A 0.9 [ 0.8 - 1.5 ] ratio LA Dimen 2D 3.4 [ 3.0 - 4.0 ] cm MV Decel Time 116 [ 104 - 258 ] msec Lat E` Elliott 0.1 [ 10.0 - 15.0 ] cm/sec MV E/A 0.9 [ 0.8 - 1.5 ] ratio TR Peak Elliott 1.8 [ 100.0 - 280.0 ] cm/sec TR Peak PG 13.0 mmHg RVSP 16.0 [ 10.0 - 36.0 ] mmHg RA Pressure 3.0 mmHg Findings: Left Ventricle: Normal left ventricular systolic function. Normal left ventricular cavity size. Normal left ventricular wall thickness. Ejection fraction is visually estimated at 65 %. Tissue Doppler/Mitral Doppler indices are consistent with impaired relaxation (Stage I diastolic dysfunction). Right Ventricle: Normal right ventricular size. Normal right ventricular systolic function. Left Atrium: The left atrium is normal in size. Right Atrium: The right atrium is normal in size. Mitral Valve: Normal appearance and function of the mitral valve with trace physiologic regurgitation. Aortic Valve: Normal appearance of the aortic valve. No significant aortic stenosis or insufficiency. Tricuspid Valve: Normal appearance of the tricuspid valve. Estimated peak PA systolic pressure 16 mmHg. There is trace tricuspid regurgitation. Pulmonic Valve: Normal pulmonic valve appearance. Pericardium: Normal pericardium with no significant pericardial effusion. Aorta: Normal aortic root. IVC: Normal size and normal respiratory collapse consistent with normal right atrial pressure. Conclusions: Normal left ventricular systolic function. Normal left ventricular cavity size. Normal left ventricular wall thickness. Ejection fraction is visually estimated at 65 %. Tissue Doppler/Mitral Doppler indices are consistent with impaired relaxation (Stage I diastolic dysfunction). Normal right ventricular size. Normal right ventricular systolic function. The left atrium is normal in size. The right atrium is normal in size. No significant valvular stenosis or regurgitation seen. Normal pericardium with no significant pericardial effusion. Electronically Signed By: Mitch Hwang 2018-10-30 15:08:25 PST
[2018-10-30] MEDS: ATORVASTATIN 40 MG TAB PO SCH (22:03)
[2018-10-31] VITALS (14 sets, daily range): BP systolic 113–165; BP diastolic 51–88; PULSE 50–71; RESP 18–22
[2018-10-31] MEDS ORDERED: traZODone 50 MG TAB PO PRN
[2018-10-31] MEDS: PANTOPRAZOLE (EC) 40 MG TAB PO SCH (06:10)
[2018-10-31] MEDS: SOD CHLORIDE 0.9% 1,000 ML IV SCH ×2 (06:11→16:14)
[2018-10-31] MEDS: CEFEPIME 1GM/50 ML (PMX) 50 ML IVPB SCH ×2 (08:01→21:44)
[2018-10-31] MEDS: DIVALPROEX (EC) 500 MG TAB PO SCH ×3 (08:01→21:44)
[2018-10-31] MEDS: METOPROLOL 25 MG TAB PO SCH ×2 (08:02→21:45)
--- NOTE | 2018-10-31 11:33 | PN ---
Date/Time of Note Date/Time of Note DATE: 10/31/18 TIME: 11:13 Assessment/Plan VTE Prophylaxis Risk score (from [facility] [place] risk: 5 SCD applied (from [facility] [place]): Yes Pharmacological prophylaxis: NA/contraindicated Pharm contraindication: bleeding Lines/Catheters IV [facility] (from [facility] Peripheral IV Assessment/Plan Hospital Course 1. Acute ICH, Subarachoid hemorrhage Neurosurgery consultation appreciated, no plans for surgery Continue PT Neurology consultation appreciated 2. RUE weakness secondary to above Continue PT 3. Hypertension Continue metoprolol 4. Atherosclerotic vascular disease Continue statin, no aspirin secondary to ICH 5. Mechanical fall versus syncope PT recommending home health with PT 6. History of partial gastrectomy No acute issues 7. h/o Partial gastrectomy 8. H/o Bioplar disorder as per history Prophylaxis: SCDs DC planning: Family conference today to discuss disposition plan Result Diagram: 10/31/18 0504 10/31/18 0504 Results 24hrs Laboratory Tests Test 10/30/18 23:30 10/31/18 05:04 Urine Opiates Screen Negative Urine Barbiturates Negative Urine Amphetamines Screen Negative Urine Benzodiazepines Screen Negative Urine Cocaine Screen Negative Urine Cannabinoids Negative White Blood Count 6.0 # Red Blood Count 3.06 L Hemoglobin 9.5 L Hematocrit 28.7 L Mean Corpuscular Volume 93.8 Mean Corpuscular Hemoglobin 31.0 Mean Corpuscular Hemoglobin Concent 33.1 Red Cell Distribution Width 15.1 H Platelet Count 93 L Mean Platelet Volume 9.8 Immature Granulocytes % 1.000 H Neutrophils % 56.0 Segmented Neutrophils % (Manual) 68 Band Neutrophils % (Manual) 2 Lymphocytes % 26.7 Lymphocytes % (Manual) 17 Reactive Lymphocytes % (Manual) 1 H Monocytes % 14.3 H Monocytes % (Manual) 9 Eosinophils % 1.8 Eosinophils % (Manual) 3 Basophils % 0.2 Nucleated Red Blood Cells % 0.0 Immature Granulocytes # 0.060 H Neutrophils # 3.3 Neutrophils # (Manual) 4.1 Band Neutrophils # 0.1 Lymphocytes (Manual) 1.0 Lymphocytes # 1.6 Reactive Lymphocytes # 0.0 Monocytes # 0.9 Monocytes # (Manual) 0.5 Eosinophils # 0.1 Basophils # 0.0 Nucleated Red Blood Cells # 0.0 Platelet Estimate DECREASED Polychromasia 3+ Poikilocytosis 1+ Anisocytosis 1+ Prothrombin Time 14.5 Prothrombin Time Ratio 1.1 INR International Normalized Ratio 1.12 Activated Partial Thromboplast Time 29.5 Sodium Level 138 Potassium Level 4.1 Chloride Level 106 Carbon Dioxide Level 27 Anion Gap 5 Blood Urea Nitrogen 11 Creatinine 0.98 Est Glomerular Filtrat Rate mL/min Glucose Level 80 Calcium Level 7.9 L Total Bilirubin 0.1 L Direct Bilirubin 0.00 Indirect Bilirubin 0.1 Aspartate Amino Transf (AST/SGOT) 15 Alanine Aminotransferase (ALT/SGPT) 16 Alkaline Phosphatase 53 Total Protein 5.3 L Albumin 2.8 L Globulin 2.50 Albumin/Globulin Ratio 1.12 Subjective 24 Hr Interval Summary Constitutional: no complaints Exam/Review of Systems Exam Vitals Vital Signs Date Temp Pulse Resp B/P (MAP) Pulse Ox O2 O2 Flow FiO2 Time Delivery Rate 10/31/18 71 08:30 10/31/18 98.1 18 150/74 97 Room Air 07:11 (99) Intake and Output 10/30/18 10/30/18 10/31/18 1515:00 23:00 07:00 IntakeIntake Total 100 ml 1100 ml 960 ml OutputOutput Total 150 ml 600 ml 300 ml BalanceBalance -50 ml 500 ml 660 ml Constitutional: alert, oriented Respiratory: clear to auscultation Cardiovascular: regular rate and rhythm Gastrointestinal: soft; No distended Musculoskeletal: nl extremities to inspection Results Results 24hrs Laboratory Tests Test 10/30/18 23:30 10/31/18 05:04 Urine Opiates Screen Negative Urine Barbiturates Negative Urine Amphetamines Screen Negative Urine Benzodiazepines Screen Negative Urine Cocaine Screen Negative Urine Cannabinoids Negative White Blood Count 6.0 # Red Blood Count 3.06 L Hemoglobin 9.5 L Hematocrit 28.7 L Mean Corpuscular Volume 93.8 Mean Corpuscular Hemoglobin 31.0 Mean Corpuscular Hemoglobin Concent 33.1 Red Cell Distribution Width 15.1 H Platelet Count 93 L Mean Platelet Volume 9.8 Immature Granulocytes % 1.000 H Neutrophils % 56.0 Segmented Neutrophils % (Manual) 68 Band Neutrophils % (Manual) 2 Lymphocytes % 26.7 Lymphocytes % (Manual) 17 Reactive Lymphocytes % (Manual) 1 H Monocytes % 14.3 H Monocytes % (Manual) 9 Eosinophils % 1.8 Eosinophils % (Manual) 3 Basophils % 0.2 Nucleated Red Blood Cells % 0.0 Immature Granulocytes # 0.060 H Neutrophils # 3.3 Neutrophils # (Manual) 4.1 Band Neutrophils # 0.1 Lymphocytes (Manual) 1.0 Lymphocytes # 1.6 Reactive Lymphocytes # 0.0 Monocytes # 0.9 Monocytes # (Manual) 0.5 Eosinophils # 0.1 Basophils # 0.0 Nucleated Red Blood Cells # 0.0 Platelet Estimate DECREASED Polychromasia 3+ Poikilocytosis 1+ Anisocytosis 1+ Prothrombin Time 14.5 Prothrombin Time Ratio 1.1 INR International Normalized Ratio 1.12 Activated Partial Thromboplast Time 29.5 Sodium Level 138 Potassium Level 4.1 Chloride Level 106 Carbon Dioxide Level 27 Anion Gap 5 Blood Urea Nitrogen 11 Creatinine 0.98 Est Glomerular Filtrat Rate mL/min Glucose Level 80 Calcium Level 7.9 L Total Bilirubin 0.1 L Direct Bilirubin 0.00 Indirect Bilirubin 0.1 Aspartate Amino Transf (AST/SGOT) 15 Alanine Aminotransferase (ALT/SGPT) 16 Alkaline Phosphatase 53 Total Protein 5.3 L Albumin 2.8 L Globulin 2.50 Albumin/Globulin Ratio 1.12 Medications Medication Current Medications Sodium Chloride 1,000 ml @ 70 mls/hr [id number] IV Last administered on 10/31/18at 06:11; Admin Dose 70 MLS/HR; Start 10/29/18 at 21:20 IV Flush (NS 3 ml) 3 ml PER PROTOCOL IV ; Start 10/29/18 at 21:30 Ondansetron HCl (Zofran Inj) 4 mg Q6H PRN IV NAUSEA/VOMITING; Start 10/29/18 at 21:30 Morphine Sulfate (morphine) 2 mg Q4H PRN IV .PAIN 7-10; Start 10/29/18 at 21:30 Labetalol HCl (Labetalol) 10 mg Q4 PRN IV sbp >160; Start 10/29/18 at 21:30 Cefepime HCl 50 ml @ 100 mls/hr Q12 IVPB Last administered on 10/31/18at 08:01; Admin Dose 100 MLS/HR; Start 10/29/18 at 22:00 Lidocaine (Lidoderm) 1 patch DAILY PRN TD right rib pain; Start 10/29/18 at 22:00 Divalproex Sodium (Depakote) 500 mg TID PO Last administered on 10/31/18at 08:01; Admin Dose 500 MG; Start 2/14/19 at 13:00 Metoprolol Tartrate (Lopressor) 25 mg BID PO Last administered on 10/31/18 08:02; Admin Dose 25 MG; Start 10/30/18 at 12:30 Atorvastatin Calcium (Lipitor) 40 mg HS PO Last administered on 10/30/18at 22:03; Admin Dose 40 MG; Start 10/30/18 at 21:00 Pantoprazole (Protonix Tab) 40 mg DAILY@06 PO Last administered on 10/31/18at 06:10; Admin Dose 40 MG; Start 10/31/18 at 06:00 Trazodone HCl (Desyrel) 50 mg HS PRN PO INSOMNIA Last administered on 10/31/18at 01:39; Admin Dose 50 MG; Start 10/31/18 at 00:00 MAURA FOX Oct 31, 2018 11:33
--- NOTE | 2018-10-31 13:28 | CONS ---
Assessment/Plan Assessment/Plan Hospital Course 88 yo M with hx of recent ICH, seizures, and multiple other comorbidities who p/w RUE numbness, difficulty walking, and repeated falls... for which neurology is consulted. Of note, the pt had a recent mechanical GLF c/b head trauma and a tSAH. CTH is notable for an acute SAH... which is perhaps due to his previous fall. Repeat CTH is stable. CUS is unremarkable. P: Await neuroimaging records from [place] Await CTA brain Hold all antiplatelets/anticoagulation Maintain SBP less than 160 Ok to cont depakote per ops Cont medical management per primary Limit sedating medications where possible PT/OT/ST as necessary Will follow clinically, to recommend neurologic studies, as necessary Consultation Date/Type/Reason Admit Date/Time Oct 29, 2018 at 21:11 Type of Consult Neurology Reason for Consultation SAH Requesting Provider: ADA GARNER Date/Time of Note DATE: 10/31/18 TIME: 13:27 24 HR Interval Summary Free Text/Dictation Continues telemetry monitoring. Pt states that he's doing well though he has trouble sleeping at night. Exam Vital Signs Vitals Vital Signs Date Temp Pulse Resp B/P (MAP) Pulse Ox O2 O2 Flow FiO2 Time Delivery Rate 10/31/18 50 12:09 10/31/18 98.3 18 140/66 96 Room Air 11:20 (90) Intake and Output 10/30/18 10/30/18 10/31/18 1515:00 23:00 07:00 IntakeIntake Total 100 ml 1100 ml 960 ml OutputOutput Total 150 ml 600 ml 300 ml BalanceBalance -50 ml 500 ml 660 ml Exam PE: Gen Appearance: No Apparent Distress HEENT: Normocephalic Cardiovascular: Regular rate Lungs: Clear bilaterally Abdomen: Soft Extremities: Dry NE: The patient was alert and fully oriented.. Language was normal. Fund of knowledge was normal. Pupils were equal and reactive to light. There was no afferent pupillary defect. Visual armstrong were normal. Funduscopic examination was limited. Extra-ocular movements were full. Ptosis was absent. There was no nystagmus. Facial sensation was normal. Face was symmetric with normal strength. Hearing was intact. Palate movements were normal. Neck strength was normal. There was normal tongue bulk and speed of movement. Tone was normal. Muscle bulk was normal. I did not see fasciculations. Arms were strong to confrontation; legs were mildly weak and symmetric. Sensation to light touch was diminished on the R side. Vibration sensation was diminished in his BLE. Temperature and pinprick sensation was normal. Rapid alternating movements were normal. There was no dysmetria. There was no intention tremor. Gait was deferred due to bedrest. Arm and leg reflexes were 2+ and symmetric. Abbott's sign was absent. Plantar responses were flexor. PRANAY KELSEY NP Oct 31, 2018 13:27
[2018-10-31] MEDS: ATORVASTATIN 40 MG TAB PO SCH (21:44)
[2018-11-01] VITALS (9 sets, daily range): BP systolic 127–169; BP diastolic 60–79; PULSE 54–75; RESP 16–19
[2018-11-01] MEDS: PANTOPRAZOLE (EC) 40 MG TAB PO SCH (06:26)
[2018-11-01] MEDS: CEFEPIME 1GM/50 ML (PMX) 50 ML IVPB SCH ×2 (09:47→21:04)
[2018-11-01] MEDS: DIVALPROEX (EC) 500 MG TAB PO SCH ×3 (09:47→21:05)
[2018-11-01] MEDS: METOPROLOL 25 MG TAB PO SCH (09:47)
--- NOTE | 2018-11-01 11:48 | PDOCDIS ---
Discharge Instructions CONDITION [id number] Patient Condition: [id number] Good HOME CARE INSTRUCTIONS: [id number] Diet Instructions: [id number] Regular ACTIVITY: [id number] Activity Restrictions: [id number] Slowly Increase Activity FOLLOW UP/APPOINTMENTS Follow-up Plan Follow with PCP in 1-2 weeks, follow-up with home health MAURA FOX Nov 01, 2018 11:48
--- NOTE | 2018-11-01 12:20 | PN ---
Date/Time of Note Date/Time of Note DATE: 11/01/18 TIME: 12:18 Assessment/Plan VTE Prophylaxis Risk score (from [facility])>0 risk: 4 SCD applied (from [facility] [place]): Yes Pharmacological prophylaxis: NA/contraindicated Pharm contraindication: bleeding Lines/Catheters IV Catheter Type (from [email or web address] Peripheral IV Urinary Cath still in place: No Assessment/Plan Hospital Course 1. Acute ICH, Subarachoid hemorrhage Neurosurgery consultation appreciated, no plans for surgery Continue PT Neurology consultation appreciated 2. RUE weakness secondary to above Continue PT 3. Hypertension Continue metoprolol 4. Atherosclerotic vascular disease Continue statin, no aspirin secondary to ICH 5. Mechanical fall versus syncope PT recommending home health with PT 6. History of partial gastrectomy No acute issues 7. h/o Partial gastrectomy 8. H/o Bioplar disorder as per history 9. History of coronary disease status post stent placement Continue statin, hold aspirin secondary to intracranial hemorrhage, DC metoprolol as patient is bradycardic with falls, have discussed the risks and benefits of metoprolol with daughter and at this time risk of metoprolol with increased probability of syncope and fall exceeds benefits, daughter does agree with discontinuation of beta-kailey Prophylaxis: SCDs DC planning: Family conference tomorrow to discuss disposition, patient lives mostly alone at home and family is considering correction placement Result Diagram: 10/31/18 0504 10/31/18 0504 Subjective 24 Hr Interval Summary Constitutional: no complaints Exam/Review of Systems Exam Vitals Vital Signs Date Temp Pulse Resp B/P (MAP) Pulse Ox O2 O2 Flow FiO2 Time Delivery Rate 11/01/18 98.4 66 19 137/65 96 11:18 (89) 11/01/18 Room Air 04:00 Intake and Output 10/31/18 10/31/18 11/01/18 1515:00 23:00 07:00 IntakeIntake Total 800 ml 300 ml OutputOutput Total 400 ml BalanceBalance 400 ml 300 ml Constitutional: alert Respiratory: clear to auscultation Cardiovascular: regular rate and rhythm Gastrointestinal: soft; No distended Musculoskeletal: nl extremities to inspection Medications Medication Current Medications IV Flush (NS 3 ml) 3 ml PER PROTOCOL IV ; Start 10/29/18 at 21:30 Ondansetron HCl (Zofran Inj) 4 mg Q6H PRN IV NAUSEA/VOMITING; Start 10/29/18 at 21:30 Morphine Sulfate (morphine) 2 mg Q4H PRN IV .PAIN 7-10; Start 10/29/18 at 21:30 Labetalol HCl (Labetalol) 10 mg Q4 PRN IV sbp >160; Start 10/29/18 at 21:30 Cefepime HCl 50 ml @ 100 mls/hr Q12 IVPB Last administered on 11/01/18 09:47; Admin Dose 100 MLS/HR; Start 10/29/18 at 22:00 Lidocaine (Lidoderm) 1 patch DAILY PRN TD right rib pain; Start 10/29/18 at 22:00 Divalproex Sodium (Depakote) 500 mg TID PO Last administered on 11/01/18 09:47; Admin Dose 500 MG; Start 10/30/18 at 13:00 Metoprolol Tartrate (Lopressor) 25 mg BID PO Last administered on 11/01/18 0 9:47; Admin Dose 25 MG; Start 10/30/18 at 12:30 Atorvastatin Calcium (Lipitor) 40 mg HS PO Last administered on 10/31/18 21:44; Admin Dose 40 MG; Start 10/30/18 at 21:00 Pantoprazole (Protonix Tab) 40 mg DAILY@06 PO Last administered on 11/01/18 06:26; Admin Dose 40 MG; Start 10/31/18 at 06:00 Trazodone HCl (Desyrel) 50 mg HS PRN PO INSOMNIA Last administered on 10/31/18 01:39; Admin Dose 50 MG; Start 10/31/18 at 00:00 MAURA FOX Nov 01, 2018 12:20
[2018-11-01] MEDS: ATORVASTATIN 40 MG TAB PO SCH (21:05)
[2018-11-02] VITALS (8 sets, daily range): BP systolic 131–155; BP diastolic 63–88; PULSE 59–88; RESP 18–20
[2018-11-02] MEDS: PANTOPRAZOLE (EC) 40 MG TAB PO SCH (05:44)
[2018-11-02] MEDS: CEFEPIME 1GM/50 ML (PMX) 50 ML IVPB SCH ×2 (08:48→20:46)
[2018-11-02] MEDS: DIVALPROEX (EC) 500 MG TAB PO SCH ×3 (08:48→20:46)
--- NOTE | 2018-11-02 15:32 | PN ---
Date/Time of Note Date/Time of Note DATE: 11/02/18 TIME: 15:25 Assessment/Plan VTE Prophylaxis Risk score (from [facility])>0 risk: 10 [place] [facility] [place] Pharmacological prophylaxis: NA/contraindicated Pharm contraindication: bleeding Lines/Catheters IV C[facility]ter Type (from [facility]): [place] Urinary Cath still in place: No Assessment/Plan Hospital Course 1. Acute ICH, Subarachoid hemorrhage Neurosurgery consultation appreciated, no plans for surgery Continue PT Neurology consultation appreciated 2. RUE weakness secondary to above Continue PT 3. Hypertension Continue metoprolol 4. Atherosclerotic vascular disease Continue statin, no aspirin secondary to ICH 5. Repeated falls secondary to dementia and debility Patient and family are agreeable for placement in acute rehab 6. History of partial gastrectomy No acute issues 7. h/o Partial gastrectomy 8. H/o Bioplar disorder as per history 9. History of coronary disease status post stent placement Continue statin, hold aspirin secondary to intracranial hemorrhage, DC metoprolol as patient is bradycardic with falls, have discussed the risks and benefits of metoprolol with daughter and at this time risk of metoprolol with increased probability of syncope and fall exceeds benefits, daughter does agree with discontinuation of beta-kailey Prophylaxis: SCDs DC planning: Have spoken to patient and family today and all parties are in agreement for acute inpatient rehab, senior case manager to arrange Result Diagram: 10/31/18 0504 10/31/18 0504 Subjective 24 Hr Interval Summary Constitutional: no complaints Exam/Review of Systems Exam Vitals Vital Signs Date Temp Pulse Resp B/P (MAP) Pulse Ox O2 O2 Flow FiO2 Time Delivery Rate 11/02/18 98.1 79 18 155/88 96 12:04 (110) 11/01/18 Room Air 04:00 Intake and Output 11/01/18 11/01/18 11/02/18 1515:00 23:00 07:00 IntakeIntake Total 750 ml BalanceBalance 750 ml Constitutional: alert Respiratory: clear to auscultation Cardiovascular: regular rate and rhythm Gastrointestinal: soft; No distended Musculoskeletal: nl extremities to inspection Medications Medication Current Medications IV Flush (NS 3 ml) 3 ml PER PROTOCOL IV ; Start 10/29/18 at 21:30 Ondansetron HCl (Zofran Inj) 4 mg Q6H PRN IV NAUSEA/VOMITING; Start 10/29/18 at 21:30 Morphine Sulfate (morphine) 2 mg Q4H PRN IV .PAIN 7-10; Start 10/29/18 at 21:30 Labetalol HCl (Labetalol) 10 mg Q4 PRN IV sbp >160; Start 10/29/18 at 21:30 Cefepime HCl 50 ml @ 100 mls/hr Q12 IVPB Last administered on 11/02/18at 08:48; Admin Dose 100 MLS/HR; Start 10/29/18 at 22:00 Lidocaine (Lidoderm) 1 patch DAILY PRN TD right rib pain; Start 10/29/18 at 22:00 Divalproex Sodium (Depakote) 500 mg TID PO Last administered on 11/02/18at 12:49; Admin Dose 500 MG; Start 10/30/18 at 13:00 Atorvastatin Calcium (Lipitor) 40 mg HS PO Last administered on 11/01/18at 21:05 ; Admin Dose 40 MG; Start 10/30/18 at 21:00 Pantoprazole (Protonix Tab) 40 mg DAILY@06 PO Last administered on 11/02/18at 05:44; Admin Dose 40 MG; Start 10/31/18 at 06:00 Trazodone HCl (Desyrel) 50 mg HS PRN PO INSOMNIA Last administered on 10/31/18at 01:39; Admin Dose 50 MG; Start 10/31/18 at 00:00 MAURA FOX Nov 02, 2018 15:32
[2018-11-02] MEDS: ATORVASTATIN 40 MG TAB PO SCH (20:46)
[2018-11-03] VITALS (7 sets, daily range): BP systolic 140–166; BP diastolic 68–79; PULSE 62–74; RESP 18–19
[2018-11-03] MEDS: PANTOPRAZOLE (EC) 40 MG TAB PO SCH (05:42)
[2018-11-03] MEDS: CEFEPIME 1GM/50 ML (PMX) 50 ML IVPB SCH (08:09)
[2018-11-03] MEDS: DIVALPROEX (EC) 500 MG TAB PO SCH ×2 (08:09→12:19)
--- NOTE | 2018-11-03 11:33 | DS ---
Date/Time of Note Date/Time of Note DATE: 11/03/18 TIME: 11:23 Discharge Summary Admission/Discharge Info Admit Date/Time Oct 29, 2018 at 21:11 Discharge Date/Time November 03, 2018 Discharge Diagnosis 1. Subacute subarachnoid hemorrhage secondary to fall Patient was recently at outside hospital with a fall and intracranial hemorrhage, patient continues to fall CT head shows subacute/ evolving subarachnoid hemorrhage Repeat CT head is stable Neurosurgery consultation appreciated, no plans for surgery Continue PT at inpatient rehab Neurology consultation appreciated 2. RUE weakness secondary to above-resolved Continue PT 3. Mild to moderate dementia Per family patient has been exhibiting signs of dementia with loss of short-term memory 4. Atherosclerotic vascular disease Continue statin, no aspirin secondary to ICH 5. Repeated falls secondary to dementia and debility Patient and family are agreeable for placement in acute rehab 6. History of partial gastrectomy No acute issues 7. Hypertension DC metoprolol as patient does become bradycardic, will allow for systolic blood pressure up to 150 due to patient's repeated falls and age 8. H/o Bioplar disorder as per history 9. History of coronary disease status post stent placement Continue statin, hold aspirin secondary to intracranial hemorrhage, DC metoprolol as patient is bradycardic with falls, have discussed the risks and benefits of metoprolol with daughter and at this time risk of metoprolol with increased probability of syncope and fall exceeds benefits, daughter does agree with discontinuation of beta-kailey Patient Condition: Good Hospital Course Patient is an 88-year-old male with mild to moderate dementia, hypertension, gastrectomy and questionable history of bipolar disorder. Patient has a history of multiple falls in the past 6 months and reportedly fell 1 week ago and presented to an outside hospital where he was noted to have a subarachnoid hemorrhage on CT brain. Patient ultimately was discharged home but he continued to fall per family, CT head during his hospitalization shows subacute hemorrhage with possible evolution, repeat CT head following day was stable and neurosurgery recommended no surgery. Patient did have some right upper extremity weakness that did improve. Patient virtually lives alone at home and due to repeated falls is unsafe to return home at this time, recommendation is for acute inpatient rehab for strength training and balance. Patient could return home ultimately with home health, patient and family are in agreement with this plan. On day of discharge patient's vitals, labs of exam are stable. Home Meds Reported Medications Temazepam* (Temazepam*) 30 Mg Capsule, 30 MG PO HS PRN for INSOMNIA, CAP 10/29/18 Simvastatin* (Zocor*) 40 Mg Tablet, 40 MG PO QHS, #30 TAB 10/29/18 Potassium Chloride* (K-Dur*) 10 Meq Tab.prt.sr, 10 MEQ PO DAILY, TAB 10/29/18 Esomeprazole Mag Trihydrate (Nexium) 40 Mg Capsule.dr, 40 MG PO DAILY, #30 CAP 10/29/18 Divalproex Sodium* (Depakote*) 500 Mg Tablet.dr, 500 MG PO TID, #90 TAB 10/29/18 Discontinued Reported Medications Metoprolol Tartrate* (Lopressor*) 50 Mg Tab, 50 MG PO BID, #60 TAB 10/29/18 Temazepam* (Temazepam*) 30 Mg Capsule, 30 MG PO HS PRN for INSOMNIA, CAP 07/18/18 Metoprolol Tartrate* (Lopressor*) 50 Mg Tab, 50 MG PO BID, #60 TAB 07/18/18 Clopidogrel Bisulfate (Clopidogrel) 75 Mg Tablet, 75 MG PO DAILY, #30 TAB 07/18/18 Aspirin* (Aspirin* Chew) 81 Mg Tab.chew, 81 MG PO DAILY, TAB.CHEW 07/18/18 Carbidopa/Levodopa (Sinemet 25-100 mg Tablet) 1 Each Tablet, 1 EACH PO TID, TAB 07/18/18 Potassium Chloride* (Potassium Chloride*) 20 Meq Tablet.er, 10 MEQ PO DAILY, TAB.SA 07/18/18 Losartan Potassium* (Losartan Potassium*) 50 Mg Tablet, 50 MG PO DAILY, TAB 07/18/18 Esomeprazole Mag Trihydrate (Nexium) 40 Mg Capsule.dr, 40 MG PO AC BREAKFAST, #30 CAP 07/18/18 Simvastatin (Simvastatin) 40 Mg Tablet, 40 MG PO DAILY 07/16/11 Divalproex Sodium (Depakote) 500 Mg Tablet.dr, 500 MG PO TID 07/16/11 Follow-up Plan Follow with physicians at rehab Primary Care Provider Norberto Layton MD Time spent on discharge: > 30 minutes MAURA FOX Nov 03, 2018 11:33
--- NOTE | 2018-11-03 14:55 | CONS ---
Assessment/Plan Assessment/Plan Hospital Course 88 yo M with hx of recent ICH, seizures, and multiple other comorbidities who p/w RUE numbness, difficulty walking, and repeated falls... for which neurology is consulted. Of note, the pt had a recent mechanical GLF c/b head trauma and a tSAH. CTH is notable for an acute SAH... which is perhaps due to his previous fall. Repeat CTH is stable. CUS is unremarkable. P: Await neuroimaging records from [place] Await CTA brain Hold all antiplatelets/anticoagulation Maintain SBP less than 160 Ok to cont depakote per ops Cont medical management per primary Limit sedating medications where possible PT/OT/ST as necessary Will follow clinically, to recommend neurologic studies, as necessary Consultation Date/Type/Reason Admit Date/Time Oct 29, 2018 at 21:11 Type of Consult Neurology Reason for Consultation SAH Requesting Provider: ADA GARNER Date/Time of Note DATE: 11/03/18 TIME: 14:55 24 HR Interval Summary Free Text/Dictation Continues telemetry monitoring. No acute events reported. Pt is without complaints at this time. Exam Vital Signs Vitals Vital Signs Date Temp Pulse Resp B/P (MAP) Pulse Ox O2 O2 Flow FiO2 Time Delivery Rate 11/03/18 67 12:01 11/03/18 98.0 18 159/76 98 11:49 (103) 11/01/18 Room Air 04:00 Intake and Output 11/02/18 11/02/18 11/03/18 1414:59 22:59 06:59 IntakeIntake Total 800 ml 300 ml OutputOutput Total 650 ml BalanceBalance 800 ml -350 ml Exam PE: Gen Appearance: No Apparent Distress HEENT: Normocephalic Cardiovascular: Regular rate Lungs: Clear bilaterally Abdomen: Soft Extremities: Dry NE: The patient was alert and fully oriented.. Language was normal. Fund of knowledge was normal. Pupils were equal and reactive to light. There was no afferent pupillary defect. Visual armstrong were normal. Funduscopic examination was limited. Extra-ocular movements were full. Ptosis was absent. There was no nystagmus. Facial sensation was normal. Face was symmetric with normal strength. Hearing was intact. Palate movements were normal. Neck strength was normal. There was normal tongue bulk and speed of movement. Tone was normal. Muscle bulk was normal. I did not see fasciculations. Arms were strong to confrontation; legs were mildly weak and symmetric. Sensation to light touch was diminished on the R side. Vibration sensation was diminished in his BLE. Temperature and pinprick sensation was normal. Rapid alternating movements were normal. There was no dysmetria. There was no intention tremor. Gait was deferred due to bedrest. Arm and leg reflexes were 2+ and symmetric. Abbott's sign was absent. Plantar responses were flexor. PRANAY KELSEY NP Nov 03, 2018 14:55
== END 2018-11-03 15:15 | DRG 87 ==
LOC: E/R 17:17 → ICU 21:11 → 6WM 10-31 06:23
PROVIDERS: ADMIT Internal Medicine; ATTEND Internal Medicine
DX: S06.6X0A Traumatic subarachnoid hemorrhage without loss of consciousness, initial encounter (principal); D69.6 Thrombocytopenia, unspecified; G20 Parkinson's disease; J44.9 Chronic obstructive pulmonary disease, unspecified; G40.909 Epilepsy, unspecified, not intractable, without status epilepticus; F02.80 Dementia in other diseases classified elsewhere, unspecified severity, without behavioral disturbance, psychotic disturbance, mood disturbance, and anxiety; I10 Essential (primary) hypertension; F31.9 Bipolar disorder, unspecified; K21.9 Gastro-esophageal reflux disease without esophagitis; E78.5 Hyperlipidemia, unspecified; R07.81 Pleurodynia; I25.10 Atherosclerotic heart disease of native coronary artery without angina pectoris; R29.6 Repeated falls; Z79.82 Long term (current) use of aspirin; Z79.02 Long term (current) use of antithrombotics/antiplatelets; Z87.891 Personal history of nicotine dependence; Z90.3 Acquired absence of stomach [part of]; Z90.49 Acquired absence of other specified parts of digestive tract; Z95.5 Presence of coronary angioplasty implant and graft
CPT/HCPCS: 36415; 70450; 70496; 71045; 71100; 80053; 80061; 80164; 80307; 81003; 83036; 83690; 83735; 85025; 85049; 85610; 85670; 85730; 87081; 93005; 93306; 93880; 93970; 97110; 97116; 97162; 97530; C9113; J0692; J7030; Q9967

== ENCOUNTER 2018-11-03 14:18 | Inpatient (IN) | payer MEDICARE, BC ==
[~2018-11-03] VITALS: Ht 157.5 cm; Wt 71.0 kg
[~2018-11-03 14:18] MED LIST changes: -ASPI-903 PO; -CARB1TAB2 PO; -CLOP75TA27 PO; +DIVA-48 PO; -DIVA500T33 PO; -LOSA50TA14 PO; -METO-429 PO; +POTA10TA37 PO; -POTA20TA96 PO; +SIMV40TA2 PO; -SIMV40TA3 PO
[2018-11-03 16:00] VITALS: BP 165/79; PULSE 69; RESP 18
[2018-11-03] MEDS ORDERED: ACETAMINOPHEN 325 MG TAB PO PRN (17:30)
[2018-11-03] MEDS ORDERED: ONDANSETRON 4 MG INJ IV PRN (17:30)
[2018-11-03] MEDS ORDERED: BISACODYL 10 MG SUPP PR PRN (17:30)
[2018-11-03] MEDS ORDERED: MAGNESIUM HYDROXIDE 30ML CUP PO PRN (17:30)
[2018-11-03] MEDS ORDERED: LIDOCAINE 5% PATCH TD PRN (17:30)
[2018-11-03] MEDS ORDERED: PENDING SANTYL ORDER FOR WOUND CARE XX PRN (17:30)
[2018-11-03] MEDS ORDERED: LACTULOSE 30ML CUP PO PRN (17:30)
[2018-11-03 20:02] VITALS: BP 155/76; PULSE 66; RESP 18
[2018-11-03] MEDS: ATORVASTATIN 40 MG TAB PO SCH (21:00)
[2018-11-03] MEDS ORDERED: DIVALPROEX (EC) 500 MG TAB PO SCH (21:00)
[2018-11-03] MEDS: SENNA TAB PO SCH (21:00)
[2018-11-03] MEDS: DOCUSATE SODIUM 100 MG CAP PO SCH (21:00)
[2018-11-03] MEDS: DIVALPROEX (EC) 250 MG TAB PO SCH (21:06)
[2018-11-03] MEDS: traZODone 50 MG TAB PO PRN (21:48)
[2018-11-04 02:00] VITALS: BP 178/82; PULSE 65; RESP 18
[2018-11-04] MEDS: PANTOPRAZOLE (EC) 40 MG TAB PO SCH (06:16)
[2018-11-04 07:00] VITALS: BP 172/85; PULSE 73; RESP 18
[2018-11-04] MEDS: DOCUSATE SODIUM 100 MG CAP PO SCH ×2 (08:42→20:44)
[2018-11-04] MEDS: POTASSIUM CHLORIDE (SR) 10 MEQ TAB PO SCH (08:43)
[2018-11-04] MEDS: DIVALPROEX (EC) 250 MG TAB PO SCH ×3 (08:43→20:44)
--- NOTE | 2018-11-04 11:51 | HP ---
Date/Time of Note Date/Time of Note DATE: 11/04/18 TIME: 11:45 Assessment/Plan VTE Prophylaxis Risk score (from Ns)>0 risk: 4 SCD applied (from Ns): Yes Pharmacological prophylaxis: NA/contraindicated Pharm contraindication: hemorrhagic infarct Lines/Catheters IV [facility]from [facility] Saline Lock Urinary Cath still in place: No Assessment/Plan Hospital Course SUBJECTIVE: Participate with physical therapy. Denies headache, numbness, tingling, focal deficit or others. OBJECTIVE: Vital signs-see below PHYSICAL EXAM: Constitutional: Well-developed, adequately built, lying in bed comfortably. Psych: nl mood/affect, no complaints Head: atraumatic, normocephalic Eyes: nl conjunctiva, nl sclera ENMT: mucosa pink and moist, nl external ears & nose Neck: non-tender, supple Respiratory: clear to auscultation, normal air movement Cardiovascular: nl pulses, regular rate and rhythm Gastrointestinal: non-tender, soft, bowel sounds active in all 4 quadrants. Musculoskeletal/extremities: nl extremities to inspection, motor strength equal bilaterally, no focal deficit. Normal pulses,no cyanosis, no edema. Neurological:+Forgetful/midly confused. Skin: nl turgor ASSESSMENT/PLAN: 1. Subacute subarachnoid hemorrhage secondary to fall s/p NS review=> stable repeat CT =>.no surgery needed Continue PT at inpatient rehab 2. RUE weakness secondary to above -resolved Continue PT 3. Mild to moderate dementia Supportive care 4. Atherosclerotic vascular disease Continue statin, no aspirin secondary to ICH 5.. Hypertension Stable on CODY inhibitors 8. H/o Bipolar disorder as per history stable,no acute issues rehab psychologist f/u 9. History of coronary disease status post stent placement Continue statin, hold aspirin secondary to intracranial hemorrhage, antihypertensive. 10. Seizure disorders. -Stable. Continue home medications. DVT prophylaxis: SCDs/ambulation. Patient was seen in collaboration with Dr. Mauro Approximately 60 m spent on this history and physical. Result Diagram: 11/04/18 0626 11/04/18 0626 Results 24hrs Laboratory Tests Test 11/03/18 17:00 11/04/18 06:26 Urine Color STRAW Urine Clarity CLEAR Urine pH 7.0 Urine Specific [place] 1.006 Urine Ketones NEGATIVE Urine Nitrite NEGATIVE Urine Bilirubin NEGATIVE Urine Urobilinogen NEGATIVE Urine Leukocyte Esterase NEGATIVE Urine Hemoglobin NEGATIVE Urine Glucose NEGATIVE Urine Total Protein NEGATIVE White Blood Count 4.1 #L Red Blood Count 3.56 L Hemoglobin 10.8 L Hematocrit 33.4 L Mean Corpuscular Volume 93.8 Mean Corpuscular Hemoglobin 30.3 Mean Corpuscular Hemoglobin Concent 32.3 Red Cell Distribution Width 14.5 Platelet Count 80 L Mean Platelet Volume 10.1 Immature Granulocytes % 1.200 H Neutrophils % 42.6 Lymphocytes % 37.3 Monocytes % 17.4 H Eosinophils % 1.5 Basophils % 0.0 Nucleated Red Blood Cells % 0.0 Immature Granulocytes # 0.050 H Neutrophils # 1.7 Lymphocytes # 1.5 Monocytes # 0.7 Eosinophils # 0.1 Basophils # 0.0 Nucleated Red Blood Cells # 0.0 Sodium Level 139 Potassium Level 4.4 Chloride Level 100 Carbon Dioxide Level 28 Anion Gap 11 Blood Urea Nitrogen 11 Creatinine 1.02 Est Glomerular Filtrat Rate mL/min Glucose Level 77 Calcium Level 8.7 Total Bilirubin 0.3 Direct Bilirubin 0.00 Indirect Bilirubin 0.3 Aspartate Amino Transf (AST/SGOT) 18 Alanine Aminotransferase (ALT/SGPT) 18 Alkaline Phosphatase 44 Total Protein 6.0 L Albumin 3.0 L Globulin 3.00 Albumin/Globulin Ratio 1.00 HPI/ROS Admit Date/Time Admit Date/Time Nov 03, 2018 at 15:21 Hx of Present Illness 88-year-old male with a history of dementia, hypertension, gastrectomy, bipolar disorders, seizure disorder, who was recently admitted at [facility] with multiple fall history found to have subarachnoid hemorrhage/scalp laceration. Patient was managed medically and was discharged home, however he fell again at home and came to [facility], a repeat CT showed possible evolution of subacute hemorrhage. Patient had neurosurgery review and a repeat CT was stable, as such no surgery was recommended. Patient continued to have right upper extremity weakness. As he does not have any family support at home, physical therapy recommended further inpatient rehabilitation prior to discharging home. Patient was accepted to acute rehabilitation unit on 11/03/2018. At my encounter with the patient, he denies chest pain, palpitation, shortness of breath, nausea, vomiting, abdominal pain, numbness, tingling, speech difficulties, vision changes, gait disturbance or other constitutional symptoms. Patient appears to be a bit forgetful and confused. ROS A 12 point review of system was assessed and is negative other than what is mentioned in HPI. PMH/Family/Social Past Medical History See HPI Medications Current Medications Miscellaneous Information (Pending [facility] Order For Wound Care) This patient martinez... PRN PRN XX WOUND CARE; Start 11/03/18 at 17:30 Docusate Sodium (Colace) 100 mg BID PO Last administered on 11/04/18 08:42; Admin Dose 100 MG; Start 11/03/18 at 21:00 Senna (Senokot) 1 tab HS PO ; Start 11/03/18 at 21:00 Acetaminophen (Tylenol Tab) 650 mg Q4H PRN PO MILD PAIN(1-3)OR ELEVATED TEMP; Start 11/03/18 at 17:30 Bisacodyl (Dulcolax Supp) 10 mg DAILY PRN [place] CONSTIPATION; Start 11/03/18 at 17:30 Magnesium Hydroxide (Milk Of Mag) 30 ml BID PRN PO CONSTIPATION; Start 11/03/18 at 17:30 Lactulose (Enulose) 20 gm DAILY PRN PO CONSTIPATION; Start 11/03/18 at 17:30 Atorvastatin Calcium (Lipitor) 40 mg HS PO ; Start 11/03/18 at 21:00 Lidocaine (Lidoderm) 1 patch DAILY PRN TD PAIN; Start 11/03/18 at 17:30 Ondansetron HCl (Zofran Inj) 4 mg Q6H PRN IV NAUSEA AND/OR VOMITING; Start 11/03/18 at 17:30 Pantoprazole (Protonix Tab) 40 mg DAILY@06 PO Last administered on 11/04/18 06:16; Admin Dose 40 MG; Start 11/04/18 at 06:00 Potassium Chloride (Klor-Con 10) 10 meq DAILY PO Last administered on 11/04/18 08:43; Admin Dose 10 MEQ; Start 11/04/18 at 09:00 Trazodone HCl (Desyrel) 50 mg HS PRN PO SLEEP Last administered on 11/03/18 21:48; Admin Dose 50 MG; Start 11/03/18 at 17:30 Divalproex Sodium (Depakote) 500 mg TID PO Last administered on 11/04/18 08:43; Admin Dose 500 MG; Start 11/03/18 at 21:00 Coded Allergies: No Known Allergies (Verified Allergy, Mild, 10/29/18) Past Surgical History See HPI Social History Former smoker Smoking Status: Former smoker Exam/Review of Systems Vital Signs Vitals Vital Signs Date Temp Pulse Resp B/P (MAP) Pulse Ox O2 O2 Flow FiO2 Time Delivery Rate 11/04/18 98.1 73 18 172/85 96 Room Air 07:00 (114) Intake and Output 11/03/18 11/03/18 11/04/18 1515:00 23:00 07:00 IntakeIntake Total 440 ml BalanceBalance 440 ml LEXI CAMP NP Nov 04, 2018 11:51
--- NOTE | 2018-11-04 12:03 | CONS ---
DATE OF ADMISSION: 11/03/2018 DATE OF CONSULTATION: 11/04/2018 REHABILITATION POST-ADMISSION PHYSICIAN EVALUATION: REHABILITATION IMPAIRMENT CATEGORY: Subarachnoid hemorrhage, recent blunt head trauma with scalp laceration. ACTIVE COMORBIDITIES: 1. Hypertension. 2. Seizure disorder. 3. Pneumonia 4. Gastroesophageal reflux disease. 5. Coronary artery disease. 6. Anemia. 7. History of bipolar disorder. 8. History of abdominal aortic aneurysm repair. 9. Hyperlipidemia. 10. Impairments in self-care, mobility and cognition. HISTORY OF PRESENT ILLNESS: The patient is an 88-year-old right-handed gentleman with a history of hypertension, hyperlipidemia, coronary artery disease, seizure disorder, COPD and bipolar disorder in addition to history of abdominal aortic aneurysm repair, who was initially admitted after a fall with a right-sided chest pain. He had an earlier admission approximately a week prior to hospitalization due to a fall with blunt head trauma and scalp laceration. Workup did include a head CT which demonstrated a hyperdense acute subarachnoid hemorrhage involving the left superior frontal lobe, right superior parietal lobe, and right frontal operculum. There is no evidence of subdural hemorrhage. The patient was evaluated by neurosurgery and neurology. The patient's hospital course also notable for questionable pneumonia and was started empirically on antibiotics. The patient was noted to have significant impairments in self-care and mobility as compared to baseline, and also impairments in cognition. The patient has been cleared to transfer to the rehabilitation unit for comprehensive interdisciplinary rehab care. FUNCTIONAL HISTORY: Prior to the recent events, he was independent in self-care tasks and mobility. Currently, patient requires moderate to maximal assist for self-care and mobility tasks. I have reviewed the preadmission screen and the patient's current functional status is consistent with the preadmission screen. FAMILY AND SOCIAL HISTORY: The patient reports living at home. He does have a supportive family. PAST MEDICAL HISTORY: 1. Hypertension. 2. Hyperlipidemia. 3. Gastroesophageal reflux disease. 4. Bipolar disorder. 5. Coronary artery disease. 6. Chronic obstructive pulmonary disease. 7. Seizure disorder. 8. History of abdominal aortic aneurysm repair. CURRENT MEDICATIONS: 1. Lipitor 40 mg p.o. at bedtime. 2. Depakote 500 mg p.o. t.i.d. 3. Lidoderm patch. 4. Protonix 40 mg p.o. daily. 5. Potassium chloride 10 mEq p.o. daily. 6. Desyrel 50 mg q.h.s. p.r.n. ALLERGIES: Patient with no known drug allergies. PHYSICAL EXAMINATION: VITAL SIGNS: The patient is currently afebrile with stable vital signs. HEENT: Extraocular motions are intact. Oropharynx clear. NECK: Supple. LUNGS: Clear anteriorly. CARDIAC: S1, S2. ABDOMEN: Soft, nontender, positive bowel sounds. NEUROLOGIC: He is awake and alert. He is oriented to person and hospital and date. He will follow simple 1-step commands. He demonstrates antigravity strength in bilateral upper extremity and lower extremity. He does have impaired dynamic balance. PLAN: The patient has been admitted for comprehensive interdisciplinary acute rehab and is anticipated to tolerate 3 hours of daily therapy in divided doses for at least 5/7 days a week. The treatment plan will include: 1. Physical therapy to focus on bed mobility, transfers, and household ambulation with the goal of having the patient reach a standby assist level. 2. Occupational therapy to focus on hygiene, grooming, dressing, bathing, and toileting activities with the goal of having the patient reach a standby assist level. 3. Rehabilitation nursing for carryover of therapeutic interventions, the goal of continent of bowel and bladder, and the goal of patient and family education with regard to the aforementioned issues. 4. Interdisciplinary cognitive program. Physical therapy and occupational therapy will include a focus on functional cognitive activities and training with the goal of having the patient return to baseline functional cognition. Speech therapy for full cognitive assessment and retraining with the goal of having the patient return to baseline cognition and neuropsychology following to oversee cognitive retraining. ESTIMATED LENGTH OF STAY: 10 days. DISPOSITION GOAL: Home with family. REHABILITATION BARRIER: Cognition. INTERVENTION FOR BARRIER: Interdisciplinary approach. I acknowledge that I performed a full physical examination on this patient within 24 hours of admission to the rehabilitation unit. I believe the patient is a good candidate for comprehensive interdisciplinary rehab care and is anticipated to make reasonable goals in a reasonable period of time as outlined above. Dictated By: ASUNCION BAILEY/NTS Conf#: [id number] DID#: [id number] CC: ASUNCION MILLARD MD;*EndCC* MTDD
[2018-11-04] MEDS: LISINOPRIL 5 MG TAB PO SCH (12:46)
[2018-11-04 14:00] VITALS: BP 170/81; PULSE 102; RESP 18
[2018-11-04 20:15] VITALS: BP 142/71; PULSE 76; RESP 18
[2018-11-04] MEDS: ATORVASTATIN 40 MG TAB PO SCH (20:43)
[2018-11-04] MEDS: SENNA TAB PO SCH (20:43)
[2018-11-05] MEDS: traZODone 50 MG TAB PO PRN (01:02)
[2018-11-05 02:00] VITALS: BP 145/67; PULSE 70; RESP 18
[2018-11-05] MEDS: PANTOPRAZOLE (EC) 40 MG TAB PO SCH (06:30)
[2018-11-05] MEDS: DIVALPROEX (EC) 250 MG TAB PO SCH ×3 (08:29→21:39)
[2018-11-05] MEDS: DOCUSATE SODIUM 100 MG CAP PO SCH ×2 (08:29→21:39)
[2018-11-05 08:30] VITALS: BP 144/71; PULSE 10; PULSE 71; RESP 18
[2018-11-05] MEDS: LISINOPRIL 5 MG TAB PO SCH (08:30)
[2018-11-05] MEDS: POTASSIUM CHLORIDE (SR) 10 MEQ TAB PO SCH (08:30)
--- NOTE | 2018-11-05 13:30 | PN ---
Date/Time of Note Date/Time of Note DATE: 11/05/18 TIME: 13:30 Objective Vital Signs Date Temp Pulse Resp B/P (MAP) Pulse Ox O2 O2 Flow FiO2 Time Delivery Rate 11/05/18 97.9 10 18 144/71 95 Room Air 08:30 (95) Intake and Output 11/04/18 11/04/18 11/05/18 1515:00 23:00 07:00 IntakeIntake Total 1400 ml 150 ml OutputOutput Total 950 ml 900 ml 200 ml BalanceBalance -950 ml 500 ml -50 ml Exam INTERDISCIPLINARY TEAM CONFERENCE Physical Exam: Pulm- cta Abd- soft BOWEL- Cont BLADDER-Cont SKIN- intact OT- DRESSING- sba/min BATHING-min TOILETING-min PT- BED MOBILITY- min TRANSFERS- min AMBULATION- min 35 feet SPEECH- COGNITION- VA A/P- Interdisciplinary team conference held today. Please see interdisciplinary sheet. Working toward d.c. on 11/13 with post discharge follow up of physical therapy, occupational therapy. Results/Medications Result Diagram: 11/04/1862511/04/18625 Medications Current Medications Miscellaneous Information (Pending [facility] Order For Wound Care) This patient martinez... PRN PRN XX WOUND CARE; Start 11/03/18 at 17:30 Docusate Sodium (Colace) 100 mg BID PO Last administered on 11/05/18at 08:29; Admin Dose 100 MG; Start 11/03/18 at 21:00 Senna (Senokot) 1 tab HS PO Last administered on 11/04/18at 20:43; Admin Dose 1 TAB; Start 11/03/18 at 21:00 Acetaminophen (Tylenol Tab) 650 mg Q4H PRN PO MILD PAIN(1-3)OR ELEVATED TEMP; Start 11/03/18 at 17:30 Bisacodyl (Dulcolax Supp) 10 mg DAILY PRN [place] CONSTIPATION; Start 11/03/18 at 17:30 Magnesium Hydroxide (Milk Of Mag) 30 ml BID PRN PO CONSTIPATION Last administered on 11/05/18at 12:20; Admin Dose 30 ML; Start 11/03/18 at 17:30 Lactulose (Enulose) 20 gm DAILY PRN PO CONSTIPATION; Start 11/03/18 at 17:30 Atorvastatin Calcium (Lipitor) 40 mg HS PO Last administered on 11/04/18 20:43; Admin Dose 40 MG; Start 11/03/18 at 21:00 Lidocaine (Lidoderm) 1 patch DAILY PRN TD PAIN; Start 11/03/18 at 17:30 Ondansetron HCl (Zofran Inj) 4 mg Q6H PRN IV NAUSEA AND/OR VOMITING; Start 11/03/18 at 17:30 Pantoprazole (Protonix Tab) 40 mg DAILY@06 PO Last administered on 11/05/18 06:30; Admin Dose 40 MG; Start 11/04/18 at 06:00 Potassium Chloride (Klor-Con 10) 10 meq DAILY PO Last administered on 11/05/18 08:30; Admin Dose 10 MEQ; Start 11/04/18 at 09:00 Trazodone HCl (Desyrel) 50 mg HS PRN PO SLEEP Last administered on 11/05/18 01:02; Admin Dose 50 MG; Start 11/03/18 at 17:30 Divalproex Sodium (Depakote) 500 mg TID PO Last administered on 11/05/18 12:19; Admin Dose 500 MG; Start 11/03/18 at 21:00 Lisinopril (Zestril) 5 mg DAILY PO Last administered on 11/05/18 08:30; Admin Dose 5 MG; Start 11/04/18 at 12:00 ASUNCION MILLARD MD Nov 05, 2018 13:30
[2018-11-05 14:21] VITALS: BP 151/71; PULSE 71; RESP 18
--- NOTE | 2018-11-05 14:31 | PN ---
Date/Time of Note Date/Time of Note DATE: 11/05/18 TIME: 14:30 Assessment/Plan VTE Prophylaxis Risk score (from Nsg)>0 risk: 5 SCD applied (from Ns): No SCD contraindicated: other (see nsg note) Pharmacological prophylaxis: NA/contraindicated Pharm contraindication: low risk/ambulating, hemorrhagic infarct Lines/Catheters IV [facility]from [facility] Saline Lock Urinary Cath still in place: No Assessment/Plan Hospital Course SUBJECTIVE: Participate with physical therapy. OBJECTIVE: Vital signs-see below PHYSICAL EXAM: Constitutional: Well-developed, adequately built, lying in bed comfortably. Psych: nl mood/affect, no complaints Head: atraumatic, normocephalic Eyes: nl conjunctiva, nl sclera ENMT: mucosa pink and moist, nl external ears & nose Neck: non-tender, supple Respiratory: clear to auscultation, normal air movement Cardiovascular: nl pulses, regular rate and rhythm Gastrointestinal: non-tender, soft, bowel sounds active in all 4 quadrants. Musculoskeletal/extremities: nl extremities to inspection, motor strength equal bilaterally, no focal deficit. Normal pulses,no cyanosis, no edema. Neurological:+Forgetful/midly confused. Skin: nl turgor ASSESSMENT/PLAN: 1. Subacute subarachnoid hemorrhage secondary to fall s/p NS review=> stable repeat CT =>.no surgery needed Continue PT at inpatient rehab 2. RUE weakness secondary to above -resolved Continue PT 3. Mild to moderate dementia Supportive care 4. Atherosclerotic vascular disease Continue statin, no aspirin secondary to ICH 5..Hypertension Stable on CODY inhibitors 8. H/o Bipolar disorder as per history stable,no acute issues rehab psychologist f/u 9. History of coronary disease status post stent placement Continue statin, hold aspirin secondary to intracranial hemorrhage, antihypertensive. 10. Seizure disorders. -Stable. Continue home medications. DVT prophylaxis: SCDs/ambulation. Patient was seen in collaboration with Dr. Mauro Result Diagram: 11/04/1862511/04/18 06 Exam/Review of Systems Exam Vitals Vital Signs Date Temp Pulse Resp B/P (MAP) Pulse Ox O2 O2 Flow FiO2 Time Delivery Rate 11/05/18 97.8 71 18 151/71 96 Room Air 14:21 (97) Intake and Output 11/04/18 11/04/18 11/05/18 1515:00 23:00 07:00 IntakeIntake Total 1400 ml 150 ml OutputOutput Total 950 ml 900 ml 200 ml BalanceBalance -950 ml 500 ml -50 ml Medications Medication Current Medications Miscellaneous Information (Pending [facility] Order For Wound Care) This patient martinez... PRN PRN XX WOUND CARE; Start 11/03/18 at 17:30 Docusate Sodium (Colace) 100 mg BID PO Last administered on 11/05/18 08:29; Admin Dose 100 MG; Start 11/03/18 at 21:00 Senna (Senokot) 1 tab HS PO Last administered on 11/04/18 20:43; Admin Dose 1 TAB; Start 11/03/18 at 21:00 Acetaminophen (Tylenol Tab) 650 mg Q4H PRN PO MILD PAIN(1-3)OR ELEVATED TEMP; Start 11/03/18 at 17:30 Bisacodyl (Dulcolax Supp) 10 mg DAILY PRN [place] CONSTIPATION; Start 11/03/18 at 17:30 Magnesium Hydroxide (Milk Of Mag) 30 ml BID PRN PO CONSTIPATION Last administered on 11/05/18 12:20; Admin Dose 30 ML; Start 11/03/18 at 17:30 Lactulose (Enulose) 20 gm DAILY PRN PO CONSTIPATION; Start 11/03/18 at 17:30 Atorvastatin Calcium (Lipitor) 40 mg HS PO Last administered on 11/04/18 20:43; Admin Dose 40 MG; Start 11/03/18 at 21:00 Lidocaine (Lidoderm) 1 patch DAILY PRN TD PAIN; Start 11/03/18 at 17:30 Ondansetron HCl (Zofran Inj) 4 mg Q6H PRN IV NAUSEA AND/OR VOMITING; Start 11/03/18 at 17:30 Pantoprazole (Protonix Tab) 40 mg DAILY@06 PO Last administered on 11/05/18 06:30; Admin Dose 40 MG; Start 11/04/18 at 06:00 Potassium Chloride (Klor-Con 10) 10 meq DAILY PO Last administered on 11/05/18 08:30; Admin Dose 10 MEQ; Start 11/04/18 at 09:00 Trazodone HCl (Desyrel) 50 mg HS PRN PO SLEEP Last administered on 11/05/18 01:02; Admin Dose 50 MG; Start 11/03/18 at 17:30 Divalproex Sodium (Depakote) 500 mg TID PO Last administered on 11/05/18at 12:19; Admin Dose 500 MG; Start 11/03/18 at 21:00 Lisinopril (Zestril) 5 mg DAILY PO Last administered on 11/05/18at 08:30; Admin Dose 5 MG; Start 11/04/18 at 12:00 LEXI CAMP NP Nov 05, 2018 14:31
--- NOTE | 2018-11-05 19:30 | CONS ---
DATE OF ADMISSION: 11/03/2018 DATE OF CONSULTATION: 11/05/2018 TYPE OF CONSULTATION: Psychological. REFERRING PHYSICIAN: Asuncion Demarco MD CONSULTING PSYCHOLOGIST: William Hairston, PhD REASON FOR CONSULTATION: This consultation was requested by Dr. Aimee Demarco in order to evaluate t he cognitive and emotional functioning of this patient related to his present medical condition. HISTORY OF PRESENT ILLNESS: The patient is an 88-year-old male. The patient has numerous medical pr oblems including history of hypertension, hyperlipidemia, coronary artery disease, seizure disorder, COPD and bipolar disorder. The patient also has a history of abdominal aneurysm repair. The patient was admitted to the hospital due to fall with blunt head trauma and was worked up. The patient was then cleared medically and sent to the acute rehabilitation unit for acute multidisciplinary rehabili tation. The patient does have a long history of bipolar disorder. The patient reports that he does not see a psychiatrist, that his general medical physician does give him his medications for this. T he patient is on Depakote for his bipolar disorder. The patient is motivated to get better and does want to return to his previous level of functioning. FAMILY AND SOCIAL HISTORY: The patient lives in a senior apartment building. The patient has been l iving there for the last 13 years. His lives in the same building, but in a different apartment . The patient does want to return there after discharge. The patient's daughter was present during the consultation with the patient's permission. The patient's daughter does help in his care when he is home. MEDICATIONS: The patient is currently on: 1. Depakote 500 mg t.i.d. 2. Trazodone 50 mg at bedtime p.r.n. SUBSTANCE USE: The patient denies any use of alcohol or other drugs. The patient reports he does no t smoke. MENTAL STATUS EXAMINATION: APPEARANCE: The patient was seen in bed. He appears to be of average height and weight. The patien t is right-handed. BEHAVIOR: The patient was cooperative during the consultation. The patient did attempt to answer al l questions presented to him by the interviewer. MOOD AND AFFECT: The patient's mood appears to be just slightly depressed. Affect does appear to be a slightly anxious. The patient says that he is not either one that his mood does go up and down, b ut that at present, he feels okay because he is getting his medical problems treated. PERCEPTION: The patient reports no hallucinations or delusions. The patient was alert to person, pl joe, situation and time. MEMORY AND COGNITION: The patient's memory and cognition appear to have some impairments. This migh t be the result of his subdural hematoma and he did come in to the unit with some impairments in cogn ition. These impairments do seem to be improving. He was able to say the month and the year. He wa s able to name the hospital. The patient was able to say who the usability engineer is. He could not say who the governor of the state or the mayor of the [facility] is. He was able to spell "[place]" backwards. He was only able to do 1 serial 7 subtraction from 100 and then made 2 errors and c ould not correct to go any further. Overall, though, for his age and what is happening with him medi juan manuel is his cognitions seemed to indicate more like a mild cognitive impairment at this point. INTELLIGENCE: Intelligence appears to fall in the average range when he is functioning adequately. INSIGHT: Fair. JUDGMENT: Fair. THOUGHT CONTENT: The patient is concerned about his present medical condition. The patient does wan t to recover and return home as soon as possible. The patient is very frustrated about his present c ondition. DISCUSSION: The patient can likely benefit from some cognitive/behavioral psychotherapy while he is on the unit. The psychotherapy would focus on stabilizing his mood and dealing with all his medical problems. DIAGNOSTIC IMPRESSION: 1. F31.89 bipolar disorder. 2. F06.8, cognitive disorder, not otherwise specified. Thank you very much, Dr. Aimee Demarco, for referring this individual. Please do not hesitate to binh higgins if you have additional questions. Dictated By: WILLIAM HAIRSTON PHD RK/NOVA Conf#: [id number] DID#: [id number] CC: ASUNCION DEMARCO MD;*EndCC*
[2018-11-05 19:35] VITALS: BP 123/71; PULSE 79; RESP 18
[2018-11-05] MEDS: SENNA TAB PO SCH (21:38)
[2018-11-05] MEDS: OLOPATADINE 0.1% 5 ML OPH BOTH EYES SCH (21:39)
[2018-11-05] MEDS: ATORVASTATIN 40 MG TAB PO SCH (21:39)
[2018-11-06 02:00] VITALS: BP 142/75; PULSE 72; RESP 18
[2018-11-06] MEDS: PANTOPRAZOLE (EC) 40 MG TAB PO SCH (06:30)
[2018-11-06 07:30] VITALS: BP 150/74; PULSE 63; RESP 20
[2018-11-06] MEDS: OLOPATADINE 0.1% 5 ML OPH BOTH EYES SCH ×2 (09:47→20:23)
[2018-11-06] MEDS: DIVALPROEX (EC) 250 MG TAB PO SCH ×3 (09:48→20:22)
[2018-11-06] MEDS: POTASSIUM CHLORIDE (SR) 10 MEQ TAB PO SCH (09:48)
[2018-11-06] MEDS: LISINOPRIL 5 MG TAB PO SCH (09:48)
[2018-11-06] MEDS: DOCUSATE SODIUM 100 MG CAP PO SCH ×2 (09:48→20:22)
--- NOTE | 2018-11-06 12:32 | PN ---
Date/Time of Note Date/Time of Note DATE: 11/06/18 TIME: 12:31 Assessment/Plan VTE Prophylaxis Risk score (from Ns)>0 risk: 5 SCD applied (from Ns): Yes Pharmacological prophylaxis: NA/contraindicated Pharm contraindication: hemorrhagic infarct Lines/Catheters IV Catheter Type (from [facility]): Saline Lock Urinary Cath still in place: No Assessment/Plan Hospital Course SUBJECTIVE: Participate with physical therapy. OBJECTIVE: Vital signs-see below PHYSICAL EXAM: Constitutional: Well-developed, adequately built, lying in bed comfortably. Psych: nl mood/affect, no complaints Head: atraumatic, normocephalic Eyes: nl conjunctiva, nl sclera ENMT: mucosa pink and moist, nl external ears & nose Neck: non-tender, supple Respiratory: clear to auscultation, normal air movement Cardiovascular: nl pulses, regular rate and rhythm Gastrointestinal: non-tender, soft, bowel sounds active in all 4 quadrants. Musculoskeletal/extremities: nl extremities to inspection, motor strength equal bilaterally, no focal deficit. Normal pulses,no cyanosis, no edema. Neurological:+slightly Forgetful/alert oriented x3 Skin: nl turgor ASSESSMENT/PLAN: 1. Subacute subarachnoid hemorrhage secondary to fall s/p NS review=> stable repeat CT =>.no surgery needed Continue PT at inpatient rehab 2. RUE weakness secondary to above -resolved Continue PT 3. Atherosclerotic vascular disease Continue statin, no aspirin secondary to ICH 4. Hypertension Stable on CODY inhibitors 5. 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 History of coronary disease status post stent placement Continue statin, hold aspirin secondary to intracranial hemorrhage, antihypertensive. 10. Seizure disorders. -Stable. Continue home medications. DVT prophylaxis: SCDs/ambulation. Patient was seen in collaboration with Dr. Mauro Result Diagram: 11/04/18 0611/04/18 06 Exam/Review of Systems Exam Vitals Vital Signs Date Temp Pulse Resp B/P (MAP) Pulse Ox O2 O2 Flow FiO2 Time Delivery Rate 11/06/18 98.3 63 20 150/74 94 Room Air 07:30 (99) Intake and Output 11/05/18 11/05/18 11/06/18 1515:00 23:00 07:00 IntakeIntake Total 1030 ml 800 ml OutputOutput Total 600 ml BalanceBalance 430 ml 800 ml Medications Medication Current Medications Miscellaneous Information (Pending [facility] Order For Wound Care) This patient martinez... PRN PRN XX WOUND CARE; Start 11/03/18 at 17:30 Docusate Sodium (Colace) 100 mg BID PO Last administered on 11/06/18 09:48; Admin Dose 100 MG; Start 11/03/18 at 21:00 Senna (Senokot) 1 tab HS PO Last administered on 11/05/18 21:38; Admin Dose 1 TAB; Start 11/03/18 at 21:00 Acetaminophen (Tylenol Tab) 650 mg Q4H PRN PO MILD PAIN(1-3)OR ELEVATED TEMP; Start 11/03/18 at 17:30 Bisacodyl (Dulcolax Supp) 10 mg DAILY PRN [place] CONSTIPATION; Start 11/03/18 at 17:30 Magnesium Hydroxide (Milk Of Mag) 30 ml BID PRN PO CONSTIPATION Last administered on 11/05/18 12:20; Admin Dose 30 ML; Start 11/03/18 at 17:30 Lactulose (Enulose) 20 gm DAILY PRN PO CONSTIPATION; Start 11/03/18 at 17:30 Atorvastatin Calcium (Lipitor) 40 mg HS PO Last administered on 11/05/18 21:39; Admin Dose 40 MG; Start 11/03/18 at 21:00 Lidocaine (Lidoderm) 1 patch DAILY PRN TD PAIN; Start 11/03/18 at 17:30 Ondansetron HCl (Zofran Inj) 4 mg Q6H PRN IV NAUSEA AND/OR VOMITING; Start 11/03/18 at 17:30 Pantoprazole (Protonix Tab) 40 mg DAILY@06 PO Last administered on 11/06/18 06:30; Admin Dose 40 MG; Start 11/04/18 at 06:00 Potassium Chloride (Klor-Con 10) 10 meq DAILY PO Last administered on 11/06/18 09:48; Admin Dose 10 MEQ; Start 11/04/18 at 09:00 Trazodone HCl (Desyrel) 50 mg HS PRN PO SLEEP Last administered on 11/05/18 01:02; Admin Dose 50 MG; Start 11/03/18 at 17:30 Divalproex Sodium (Depakote) 500 mg TID PO Last administered on 11/06/18 12:12; Admin Dose 500 MG; Start 11/03/18 at 21:00 Lisinopril (Zestril) 5 mg DAILY PO Last administered on 11/06/18 09:48; Admin Dose 5 MG; Start 11/04/18 at 12:00 Olopatadine HCl (Patanol 0.1% Oph) 1 drop BID BOTH EYES Last administered on 11/06/18 09:47; Admin Dose 1 DROP; Start 11/05/18 at 21:00 LEXI CAMP NP Nov 06, 2018 12:32
--- NOTE | 2018-11-06 13:30 | PN ---
Date/Time of Note Date/Time of Note DATE: 11/06/18 TIME: 13:28 Subjective Patient up for activities Objective Vital Signs Date Temp Pulse Resp B/P (MAP) Pulse Ox O2 O2 Flow FiO2 Time Delivery Rate 11/06/18 98.3 63 20 150/74 94 Room Air 07:30 (99) Intake and Output 11/05/18 11/05/18 11/06/18 1515:00 23:00 07:00 IntakeIntake Total 1030 ml 800 ml OutputOutput Total 600 ml BalanceBalance 430 ml 800 ml Exam pulm-cta abd-soft min ambulation Results/Medications Result Diagram: 11/04/1862511/04/18625 Medications Current Medications Miscellaneous Information (Pending [facility] Order For Wound Care) This patient martinez... PRN PRN XX WOUND CARE; Start 11/03/18 at 17:30 Docusate Sodium (Colace) 100 mg BID PO Last administered on 11/06/18at 09:48; Admin Dose 100 MG; Start 11/03/18 at 21:00 Senna (Senokot) 1 tab HS PO Last administered on 11/05/18at 21:38; Admin Dose 1 TAB; Start 11/03/18 at 21:00 Acetaminophen (Tylenol Tab) 650 mg Q4H PRN PO MILD PAIN(1-3)OR ELEVATED TEMP; Start 11/03/18 at 17:30 Bisacodyl (Dulcolax Supp) 10 mg DAILY PRN [place] CONSTIPATION; Start 11/03/18 at 17:30 Magnesium Hydroxide (Milk Of Mag) 30 ml BID PRN PO CONSTIPATION Last administered on 11/05/18at 12:20; Admin Dose 30 ML; Start 11/03/18 at 17:30 Lactulose (Enulose) 20 gm DAILY PRN PO CONSTIPATION; Start 11/03/18 at 17:30 Atorvastatin Calcium (Lipitor) 40 mg HS PO Last administered on 11/05/18at 21:3 9; Admin Dose 40 MG; Start 11/03/18 at 21:00 Lidocaine (Lidoderm) 1 patch DAILY PRN TD PAIN; Start 11/03/18 at 17:30 Ondansetron HCl (Zofran Inj) 4 mg Q6H PRN IV NAUSEA AND/OR VOMITING; Start 11/03/18 at 17:30 Pantoprazole (Protonix Tab) 40 mg DAILY@06 PO Last administered on 11/06/18 06:30; Admin Dose 40 MG; Start 11/04/18 at 06:00 Potassium Chloride (Klor-Con 10) 10 meq DAILY PO Last administered on 11/06/18 09:48; Admin Dose 10 MEQ; Start 11/04/18 at 09:00 Trazodone HCl (Desyrel) 50 mg HS PRN PO SLEEP Last administered on 11/05/18 01:02; Admin Dose 50 MG; Start 11/03/18 at 17:30 Divalproex Sodium (Depakote) 500 mg TID PO Last administered on 11/06/18 12:12; Admin Dose 500 MG; Start 11/03/18 at 21:00 Lisinopril (Zestril) 5 mg DAILY PO Last administered on 11/06/18 09:48; Admin Dose 5 MG; Start 11/04/18 at 12:00 Olopatadine HCl (Patanol 0.1% Oph) 1 drop BID BOTH EYES Last administered on 11/06/18 09:47; Admin Dose 1 DROP; Start 11/05/18 at 21:00 Assessment/Plan Additional Assessment/Plan Rehab- SAH/ recent BHT/scalp lac; seizure disorder Continue current treatment plan Hypertension GERD Hyperlipidemia CAD COPD history of bipolar disorder h.o. AAA repair h.o. partial gastrectomy ASUNCION MILLARD MD Nov 06, 2018 13:30
[2018-11-06 14:00] VITALS: BP 157/81; PULSE 90; RESP 18
[2018-11-06 20:15] VITALS: BP 143/64; PULSE 71; RESP 18
[2018-11-06] MEDS: SENNA TAB PO SCH (20:22)
[2018-11-06] MEDS: ATORVASTATIN 40 MG TAB PO SCH (20:22)
[2018-11-07 02:11] VITALS: BP 151/71; PULSE 71; RESP 18
[2018-11-07] MEDS: PANTOPRAZOLE (EC) 40 MG TAB PO SCH (06:16)
[2018-11-07 07:30] VITALS: BP 157/70; PULSE 63; RESP 18
[2018-11-07] MEDS: DOCUSATE SODIUM 100 MG CAP PO SCH ×3 (09:00→20:41)
[2018-11-07] MEDS: OLOPATADINE 0.1% 5 ML OPH BOTH EYES SCH ×2 (09:08→20:50)
[2018-11-07] MEDS: DIVALPROEX (EC) 250 MG TAB PO SCH ×3 (09:09→20:41)
[2018-11-07] MEDS: POTASSIUM CHLORIDE (SR) 10 MEQ TAB PO SCH (09:09)
[2018-11-07] MEDS: LISINOPRIL 5 MG TAB PO SCH (09:09)
--- NOTE | 2018-11-07 12:31 | PN ---
Date/Time of Note Date/Time of Note DATE: 11/07/18 TIME: 12:28 Assessment/Plan VTE Prophylaxis Risk score (from Ns)>0 risk: 5 SCD applied (from [facility]): Yes Pharmacological prophylaxis: NA/contraindicated Pharm contraindication: hemorrhagic infarct Lines/Catheters [facility]from [facility] Saline Lock Urinary Cath still in place: No Assessment/Plan Hospital Course SUBJECTIVE: Participate with physical therapy. OBJECTIVE: Vital signs-see below PHYSICAL EXAM: Constitutional: Well-developed, adequately built, lying in bed comfortably. Psych: nl mood/affect, no complaints Head: atraumatic, normocephalic Eyes: nl conjunctiva, nl sclera ENMT: mucosa pink and moist, nl external ears & nose Neck: non-tender, supple Respiratory: clear to auscultation, normal air movement Cardiovascular: nl pulses, regular rate and rhythm Gastrointestinal: non-tender, soft, bowel sounds active in all 4 quadrants. Musculoskeletal/extremities: nl extremities to inspection, motor strength equal bilaterally, no focal deficit. Normal pulses,no cyanosis, no edema. Neurological:+slightly Forgetful/alert oriented x3 Skin: nl turgor ASSESSMENT/PLAN: 1. Subacute subarachnoid hemorrhage secondary to fall s/p NS review=> stable repeat CT =>.no surgery needed Continue PT at inpatient rehab 2. RUE weakness secondary to above -resolved Continue PT 3. Atherosclerotic vascular disease Continue statin, no aspirin secondary to ICH 4. Hypertension Stable on CODY inhibitors 5. 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 History of coronary disease status post stent placement Continue statin, hold aspirin secondary to intracranial hemorrhage, antihypertensive. 10. Seizure disorders. -Stable. Continue home medications. DVT prophylaxis: SCDs/ambulation. Patient was seen in collaboration with Dr. Mauro Result Diagram: 11/04/18 0611/04/18 06 Exam/Review of Systems Exam Vitals Vital Signs Date Temp Pulse Resp B/P (MAP) Pulse Ox O2 O2 Flow FiO2 Time Delivery Rate 11/07/18 98.2 63 18 157/70 97 Room Air 07:30 (99) Intake and Output 11/06/18 11/06/18 11/07/18 1515:00 23:00 07:00 IntakeIntake Total 100 ml 980 ml 240 ml OutputOutput Total 410 ml 400 ml BalanceBalance 100 ml 570 ml -160 ml Medications Medication Current Medications Miscellaneous Information (Pending [facility] Order For Wound Care) This patient martinez... PRN PRN XX WOUND CARE; Start 11/03/18 at 17:30 Docusate Sodium (Colace) 100 mg BID PO Last administered on 11/06/18 20:22; Admin Dose 100 MG; Start 11/03/18 at 21:00 Senna (Senokot) 1 tab HS PO Last administered on 11/06/18 20:22; Admin Dose 1 TAB; Start 11/03/18 at 21:00 Acetaminophen (Tylenol Tab) 650 mg Q4H PRN PO MILD PAIN(1-3)OR ELEVATED TEMP; Start 11/03/18 at 17:30 Bisacodyl (Dulcolax Supp) 10 mg DAILY PRN [place] CONSTIPATION; Start 11/03/18 at 17:30 Magnesium Hydroxide (Milk Of Mag) 30 ml BID PRN PO CONSTIPATION Last administered on 11/05/18 12:20; Admin Dose 30 ML; Start 11/03/18 at 17:30 Lactulose (Enulose) 20 gm DAILY PRN PO CONSTIPATION; Start 11/03/18 at 17:30 Atorvastatin Calcium (Lipitor) 40 mg HS PO Last administered on 11/06/18 20:22; Admin Dose 40 MG; Start 11/03/18 at 21:00 Lidocaine (Lidoderm) 1 patch DAILY PRN TD PAIN; Start 11/03/18 at 17:30 Ondansetron HCl (Zofran Inj) 4 mg Q6H PRN IV NAUSEA AND/OR VOMITING; Start 11/03/18 at 17:30 Pantoprazole (Protonix Tab) 40 mg DAILY@06 PO Last administered on 11/07/18 06:16; Admin Dose 40 MG; Start 11/04/18 at 06:00 Potassium Chloride (Klor-Con 10) 10 meq DAILY PO Last administered on 11/07/18 09:09; Admin Dose 10 MEQ; Start 11/04/18 at 09:00 Trazodone HCl (Desyrel) 50 mg HS PRN PO SLEEP Last administered on 11/05/18 01:02; Admin Dose 50 MG; Start 11/03/18 at 17:30 Divalproex Sodium (Depakote) 500 mg TID PO Last administered on 11/07/18 09:09; Admin Dose 500 MG; Start 11/03/18 at 21:00 Lisinopril (Zestril) 5 mg DAILY PO Last administered on 11/07/18 09:09; Admin Dose 5 MG; Start 11/04/18 at 12:00 Olopatadine HCl (Patanol 0.1% Oph) 1 drop BID BOTH EYES Last administered on 11/07/18 09:08; Admin Dose 1 DROP; Start 11/05/18 at 21:00 LEXI CAMP NP Nov 07, 2018 12:31
--- NOTE | 2018-11-07 12:39 | PN ---
Date/Time of Note Date/Time of Note DATE: 11/07/18 TIME: 12:39 Subjective Comfortable Objective Vital Signs Date Temp Pulse Resp B/P (MAP) Pulse Ox O2 O2 Flow FiO2 Time Delivery Rate 11/07/18 98.2 63 18 157/70 97 Room Air 07:30 (99) Intake and Output 11/06/18 11/06/18 11/07/18 1515:00 23:00 07:00 IntakeIntake Total 100 ml 980 ml 240 ml OutputOutput Total 410 ml 400 ml BalanceBalance 100 ml 570 ml -160 ml Exam min transfer min ambulation 100 feet pulm-cta Results/Medications Result Diagram: 11/04/18 0611/04/18 06 Medications Current Medications Miscellaneous Information (Pending [facility] Order For Wound Care) This patient martinez... PRN PRN XX WOUND CARE; Start 11/03/18 at 17:30 Docusate Sodium (Colace) 100 mg BID PO Last administered on 11/06/18at 20:22; Admin Dose 100 MG; Start 11/03/18 at 21:00 Senna (Senokot) 1 tab HS PO Last administered on 11/06/18at 20:22; Admin Dose 1 TAB; Start 11/03/18 at 21:00 Acetaminophen (Tylenol Tab) 650 mg Q4H PRN PO MILD PAIN(1-3)OR ELEVATED TEMP; Start 11/03/18 at 17:30 Bisacodyl (Dulcolax Supp) 10 mg DAILY PRN [place] CONSTIPATION; Start 11/03/18 at 17:30 Magnesium Hydroxide (Milk Of Mag) 30 ml BID PRN PO CONSTIPATION Last administered on 11/05/18at 12:20; Admin Dose 30 ML; Start 11/03/18 at 17:30 Lactulose (Enulose) 20 gm DAILY PRN PO CONSTIPATION; Start 11/03/18 at 17:30 Atorvastatin Calcium (Lipitor) 40 mg HS PO Last administered on 11/06/18at 20:22; Admin Dose 40 MG; Start 11/03/18 at 21:00 Lidocaine (Lidoderm) 1 patch DAILY PRN TD PAIN; Start 11/03/18 at 17:30 Ondansetron HCl (Zofran Inj) 4 mg Q6H PRN IV NAUSEA AND/OR VOMITING; Start 11/03/18 at 17:30 Pantoprazole (Protonix Tab) 40 mg DAILY@06 PO Last administered on 11/07/18 06:16; Admin Dose 40 MG; Start 11/04/18 at 06:00 Potassium Chloride (Klor-Con 10) 10 meq DAILY PO Last administered on 11/07/18 09:09; Admin Dose 10 MEQ; Start 11/04/18 at 09:00 Trazodone HCl (Desyrel) 50 mg HS PRN PO SLEEP Last administered on 11/05/18 01:02; Admin Dose 50 MG; Start 11/03/18 at 17:30 Divalproex Sodium (Depakote) 500 mg TID PO Last administered on 11/07/18 09:09; Admin Dose 500 MG; Start 11/03/18 at 21:00 Lisinopril (Zestril) 5 mg DAILY PO Last administered on 11/07/18 09:09; Admin Dose 5 MG; Start 11/04/18 at 12:00 Olopatadine HCl (Patanol 0.1% Oph) 1 drop BID BOTH EYES Last administered on 11/07/18 09:08; Admin Dose 1 DROP; Start 11/05/18 at 21:00 Assessment/Plan Additional Assessment/Plan Rehab- SAH/ recent BHT/scalp lac; seizure disorder Continue rehab activities Hypertension GERD Hyperlipidemia CAD COPD history of bipolar disorder h.o. AAA repair h.o. partial gastrectomy ASUNCION MILLARD MD Nov 07, 2018 12:39
[2018-11-07 14:00] VITALS: BP 141/66; PULSE 77; RESP 18
--- NOTE | 2018-11-07 14:22 | CONS ---
Assessment/Plan Assessment/Plan Hospital Course 88 yo M with Hx of recent SAH, seizures, and multiple other comorbidities who initially p/w RUE numbness, difficulty walking, and repeated falls... Now s/p Tx to [facility] for acute rehab.. Of note, the pt had a recent mechanical GLF c/b head trauma and a tSAH. CTH is notable for an acute SAH... which is perhaps due to his previous fall. Repeat CTH is stable. P: Follow up re: recent CTA brain Clarify seizure Hx; Continue depakote per ops for now Ativan iv prn prolonged seizure (>5 min) OK to start antiplatelet Tx if medically indicated.. 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
[2018-11-07 20:00] VITALS: BP 127/63; PULSE 72; RESP 18
[2018-11-07] MEDS: ATORVASTATIN 40 MG TAB PO SCH (20:41)
[2018-11-07] MEDS: SENNA TAB PO SCH (20:43)
[2018-11-08 02:05] VITALS: BP 124/64; PULSE 74; RESP 16
[2018-11-08] MEDS: PANTOPRAZOLE (EC) 40 MG TAB PO SCH (06:37)
[2018-11-08 07:30] VITALS: BP 156/72; PULSE 73; RESP 16
[2018-11-08] MEDS: DOCUSATE SODIUM 100 MG CAP PO SCH ×2 (08:25→20:53)
[2018-11-08] MEDS: POTASSIUM CHLORIDE (SR) 10 MEQ TAB PO SCH (08:25)
[2018-11-08] MEDS: LISINOPRIL 5 MG TAB PO SCH (08:26)
--- NOTE | 2018-11-08 08:50 | PN ---
Date/Time of Note Date/Time of Note DATE: 11/08/18 TIME: 08:49 Subjective Comfortable Objective Vital Signs Date Temp Pulse Resp B/P (MAP) Pulse Ox O2 O2 Flow FiO2 Time Delivery Rate 11/08/18 98.2 73 16 156/72 98 Room Air 07:30 (100) Intake and Output 11/07/18 11/07/18 11/08/18 1515:00 23:00 07:00 IntakeIntake Total 240 ml OutputOutput Total 750 ml BalanceBalance -510 ml Exam pulm-cta abd-soft cga ambulation Results/Medications Result Diagram: 11/04/1862511/04/18625 Medications Current Medications Miscellaneous Information (Pending [facility] Order For Wound Care) This patient martinez... PRN PRN XX WOUND CARE; Start 11/03/18 at 17:30 Docusate Sodium (Colace) 100 mg BID PO Last administered on 11/08/18at 08:25; Admin Dose 100 MG; Start 11/03/18 at 21:00 Senna (Senokot) 1 tab HS PO Last administered on 11/06/18at 20:22; Admin Dose 1 TAB; Start 11/03/18 at 21:00 Acetaminophen (Tylenol Tab) 650 mg Q4H PRN PO MILD PAIN(1-3)OR ELEVATED TEMP; Start 11/03/18 at 17:30 Bisacodyl (Dulcolax Supp) 10 mg DAILY PRN [place] CONSTIPATION; Start 11/03/18 at 17:30 Magnesium Hydroxide (Milk Of Mag) 30 ml BID PRN PO CONSTIPATION Last administered on 11/05/18at 12:20; Admin Dose 30 ML; Start 11/03/18 at 17:30 Lactulose (Enulose) 20 gm DAILY PRN PO CONSTIPATION; Start 11/03/18 at 17:30 Atorvastatin Calcium (Lipitor) 40 mg HS PO Last administered on 11/07/18at 20:41; Admin Dose 40 MG; Start 11/03/18 at 21:00 Lidocaine (Lidoderm) 1 patch DAILY PRN TD PAIN; Start 11/03/18 at 17:30 Ondansetron HCl (Zofran Inj) 4 mg Q6H PRN IV NAUSEA AND/OR VOMITING; Start 11/03/18 at 17:30 Pantoprazole (Protonix Tab) 40 mg DAILY@06 PO Last administered on 11/08/18 06:37; Admin Dose 40 MG; Start 11/04/18 at 06:00 Potassium Chloride (Klor-Con 10) 10 meq DAILY PO Last administered on 11/08/18 08:25; Admin Dose 10 MEQ; Start 11/04/18 at 09:00 Trazodone HCl (Desyrel) 50 mg HS PRN PO SLEEP Last administered on 11/05/18 01:02; Admin Dose 50 MG; Start 11/03/18 at 17:30 Divalproex Sodium (Depakote) 500 mg TID PO Last administered on 11/07/18 20:41; Admin Dose 500 MG; Start 11/03/18 at 21:00 Lisinopril (Zestril) 5 mg DAILY PO Last administered on 11/08/18 08:26; Admin Dose 5 MG; Start 11/04/18 at 12:00 Olopatadine HCl (Patanol 0.1% Oph) 1 drop BID BOTH EYES Last administered on 11/07/18 09:08; Admin Dose 1 DROP; Start 11/05/18 at 21:00 Assessment/Plan Additional Assessment/Plan Rehab- SAH/ recent BHT/scalp lac; seizure disorder Excellent progress with rehab activities. Patient actively participating and motivated Hypertension GERD Hyperlipidemia CAD COPD history of bipolar disorder h.o. AAA repair h.o. partial gastrectomy ASUNCION MILLARD MD Nov 08, 2018 08:50
[2018-11-08] MEDS: OLOPATADINE 0.1% 5 ML OPH BOTH EYES SCH ×2 (09:00→20:53)
[2018-11-08] MEDS: DIVALPROEX (EC) 250 MG TAB PO SCH ×3 (09:21→20:54)
--- NOTE | 2018-11-08 10:48 | CONS ---
Assessment/Plan Assessment/Plan Hospital Course 88 yo M with Hx of recent SAH, seizures, and multiple other comorbidities who initially p/w RUE numbness, difficulty walking, and repeated falls... Now s/p Tx to [facility] for acute rehab.. Of note, the pt had a recent mechanical GLF c/b head trauma and a tSAH. CTH is notable for an acute SAH... which is perhaps due to his previous fall. Repeat CTH is stable. P: Follow up re: recent CTA brain Clarify seizure Hx; Continue depakote per ops for now Ativan iv prn prolonged seizure (>5 min) OK to start antiplatelet Tx if medically indicated.. 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 Exam Vital Signs Vitals Vital Signs Date Temp Pulse Resp B/P (MAP) Pulse Ox O2 O2 Flow FiO2 Time Delivery Rate 11/08/18 98.2 73 16 156/72 98 Room Air 07:30 (100) Intake and Output 11/07/18 11/07/18 11/08/18 1515:00 23:00 07:00 IntakeIntake Total 240 ml OutputOutput Total 750 ml BalanceBalance -510 ml Exam PE: Gen Appearance: No Apparent Distress HEENT: Normocephalic Cardiovascular: Regular rate Lungs: Clear bilaterally Abdomen: Soft Extremities: Dry NE: The patient was alert and oriented.. Language was normal. Fund of knowledge was normal. Pupils were equal and reactive to light. There was no afferent pupillary defect. Visual armstrong were normal. Funduscopic examination was limited. Extra-ocular movements were full. Ptosis was absent. There was no nystagmus. Facial sensation was normal. Face was symmetric with normal strength. Hearing was intact. Palate movements were normal. Neck strength was normal. There was normal tongue bulk and speed of movement. Tone was normal. Muscle bulk was normal. I did not see fasciculations. Arms and legs were mildly weak and symmetric. Vibration sensation was normal. Temperature and pinprick sensation was normal. Rapid alternating movements were normal. There was no dysmetria. There was no intention tremor. Gait was deferred due to bedrest. Arm and leg reflexes were 2+ and symmetric. Abbott's sign was absent. Plantar responses were flexor. PRANAY KELSEY NP Nov 08, 2018 10:48 MICHAEL REY Nov 08, 2018 12:04
--- NOTE | 2018-11-08 12:56 | PN ---
Date/Time of Note Date/Time of Note DATE: 11/08/18 TIME: 12:55 Assessment/Plan VTE Prophylaxis Risk score (from Ns)>0 risk: 5 SCD applied (from Ns): Yes Pharmacological prophylaxis: NA/contraindicated Pharm contraindication: low risk/ambulating, hemorrhagic infarct Lines/Catheters IV [facility] (from [facility] Saline Lock Urinary Cath still in place: No Assessment/Plan Hospital Course SUBJECTIVE: No overnight episode OBJECTIVE: Vital signs-see below PHYSICAL EXAM: Constitutional: Well-developed, adequately built, lying in bed comfortably. Psych: nl mood/affect, no complaints Head: atraumatic, normocephalic Eyes: nl conjunctiva, nl sclera ENMT: mucosa pink and moist, nl external ears & nose Neck: non-tender, supple Respiratory: clear to auscultation, normal air movement Cardiovascular: nl pulses, regular rate and rhythm Gastrointestinal: non-tender, soft, bowel sounds active in all 4 quadrants. Musculoskeletal/extremities: nl extremities to inspection, motor strength equal bilaterally, no focal deficit. Normal pulses,no cyanosis, no edema. Neurological:+slightly Forgetful/alert oriented x3 Skin: nl turgor ASSESSMENT/PLAN: 1. Subacute subarachnoid hemorrhage secondary to fall s/p NS review=> stable repeat CT =>.no surgery needed Continue rehab 2. Atherosclerotic vascular disease Continue statin, no aspirin secondary to ICH 3. Hypertension Stable on CODY inhibitors 4. 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 History of coronary disease status post stent placement Continue statin, hold aspirin secondary to intracranial hemorrhage, antihypertensive. 6. Seizure disorders. -Stable. Continue home medications. DVT prophylaxis: SCDs/ambulation. Patient was seen in collaboration with Dr. Mauro Result Diagram: 11/04/1862511/04/18 06 Exam/Review of Systems Exam Vitals Vital Signs Date Temp Pulse Resp B/P (MAP) Pulse Ox O2 O2 Flow FiO2 Time Delivery Rate 11/08/18 98.2 73 16 156/72 98 Room Air 07:30 (100) Intake and Output 11/07/18 11/07/18 11/08/18 1515:00 23:00 07:00 IntakeIntake Total 240 ml OutputOutput Total 750 ml BalanceBalance -510 ml Medications Medication Current Medications Miscellaneous Information (Pending Santyl Order For Wound Care) This patient martinez... PRN PRN XX WOUND CARE; Start 11/03/18 at 17:30 Docusate Sodium (Colace) 100 mg BID PO Last administered on 11/08/18 08:25; Admin Dose 100 MG; Start 11/03/18 at 21:00 Senna (Senokot) 1 tab HS PO Last administered on 11/06/18 20:22; Admin Dose 1 TAB; Start 11/03/18 at 21:00 Acetaminophen (Tylenol Tab) 650 mg Q4H PRN PO MILD PAIN(1-3)OR ELEVATED TEMP; Start 11/03/18 at 17:30 Bisacodyl (Dulcolax Supp) 10 mg DAILY PRN MD CONSTIPATION; Start 11/03/18 at 17:30 Magnesium Hydroxide (Milk Of Mag) 30 ml BID PRN PO CONSTIPATION Last administered on 11/05/18 12:20; Admin Dose 30 ML; Start 11/03/18 at 17:30 Lactulose (Enulose) 20 gm DAILY PRN PO CONSTIPATION; Start 11/03/18 at 17:30 Atorvastatin Calcium (Lipitor) 40 mg HS PO Last administered on 11/07/18 20:41; Admin Dose 40 MG; Start 11/03/18 at 21:00 Lidocaine (Lidoderm) 1 patch DAILY PRN TD PAIN; Start 11/03/18 at 17:30 Ondansetron HCl (Zofran Inj) 4 mg Q6H PRN IV NAUSEA AND/OR VOMITING; Start 11/03/18 at 17:30 Pantoprazole (Protonix Tab) 40 mg DAILY@06 PO Last administered on 11/08/18 06:37; Admin Dose 40 MG; Start 11/04/18 at 06:00 Potassium Chloride (Klor-Con 10) 10 meq DAILY PO Last administered on 11/08/18 08:25; Admin Dose 10 MEQ; Start 11/04/18 at 09:00 Trazodone HCl (Desyrel) 50 mg HS PRN PO SLEEP Last administered on 11/05/18 01:02; Admin Dose 50 MG; Start 11/03/18 at 17:30 Divalproex Sodium (Depakote) 500 mg TID PO Last administered on 11/08/18 09:21; Admin Dose 500 MG; Start 11/03/18 at 21:00 Lisinopril (Zestril) 5 mg DAILY PO Last administered on 11/08/18at 08:26; Admin Dose 5 MG; Start 11/04/18 at 12:00 Olopatadine HCl (Patanol 0.1% Oph) 1 drop BID BOTH EYES Last administered on 11/07/18at 09:08; Admin Dose 1 DROP; Start 11/05/18 at 21:00 LEXI CAMP NP Nov 08, 2018 12:56
[2018-11-08 13:00] VITALS: BP 153/73; PULSE 74; RESP 16
[2018-11-08 20:00] VITALS: BP 129/60; PULSE 68; RESP 18
[2018-11-08] MEDS: SENNA TAB PO SCH (20:53)
[2018-11-08] MEDS: ATORVASTATIN 40 MG TAB PO SCH (20:54)
[2018-11-09 02:10] VITALS: BP 119/58; PULSE 72; RESP 16
[2018-11-09] MEDS: PANTOPRAZOLE (EC) 40 MG TAB PO SCH (06:53)
[2018-11-09 08:00] VITALS: BP 159/69; PULSE 75; RESP 18
[2018-11-09] MEDS: DOCUSATE SODIUM 100 MG CAP PO SCH ×2 (08:15→21:08)
[2018-11-09] MEDS: POTASSIUM CHLORIDE (SR) 10 MEQ TAB PO SCH (08:16)
[2018-11-09] MEDS: DIVALPROEX (EC) 250 MG TAB PO SCH ×3 (08:16→21:08)
[2018-11-09] MEDS: LISINOPRIL 5 MG TAB PO SCH (08:17)
--- NOTE | 2018-11-09 10:37 | PN ---
Date/Time of Note Date/Time of Note DATE: 11/09/18 TIME: 10:37 Assessment/Plan VTE Prophylaxis Risk score (from Ns)>0 risk: 2 SCD applied (from Ns): Yes Pharmacological prophylaxis: NA/contraindicated Pharm contraindication: hemorrhagic infarct Lines/Catheters [facility] Saline Lock Urinary Cath still in place: No Assessment/Plan Hospital Course SUBJECTIVE: No overnight episode OBJECTIVE: Vital signs-see below PHYSICAL EXAM: Constitutional: Well-developed, adequately built, lying in bed comfortably. Psych: nl mood/affect, no complaints Head: atraumatic, normocephalic Eyes: nl conjunctiva, nl sclera ENMT: mucosa pink and moist, nl external ears & nose Neck: non-tender, supple Respiratory: clear to auscultation, normal air movement Cardiovascular: nl pulses, regular rate and rhythm Gastrointestinal: non-tender, soft, bowel sounds active in all 4 quadrants. Musculoskeletal/extremities: nl extremities to inspection, motor strength equal bilaterally, no focal deficit. Normal pulses,no cyanosis, no edema. Neurological:+slightly Forgetful/alert oriented x3 Skin: nl turgor ASSESSMENT/PLAN: 1. Subacute subarachnoid hemorrhage secondary to fall s/p NS review=> stable repeat CT =>.no surgery needed Continue rehab 2. Atherosclerotic vascular disease Continue statin, no aspirin secondary to ICH 3. Hypertension Stable on CODY inhibitors 4. 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 History of coronary disease status post stent placement Continue statin, hold aspirin secondary to intracranial hemorrhage, antihypertensive. 6. Seizure disorders. -Stable. Continue home medications. DVT prophylaxis: SCDs/ambulation. Patient was seen in collaboration with Dr. Mauro Exam/Review of Systems Exam Vitals Vital Signs Date Temp Pulse Resp B/P (MAP) Pulse Ox O2 O2 Flow FiO2 Time Delivery Rate 11/09/18 98.3 75 18 159/69 98 Room Air 08:00 (99) Intake and Output 11/08/18 11/08/18 11/09/18 1515:00 23:00 07:00 IntakeIntake Total 350 ml 200 ml OutputOutput Total 900 ml BalanceBalance 350 ml -700 ml Medications Medication Current Medications Miscellaneous Information (Pending [facility] Order For Wound Care) This patient martinez... PRN PRN XX WOUND CARE; Start 11/03/18 at 17:30 Docusate Sodium (Colace) 100 mg BID PO Last administered on 11/09/18 08:15; Admin Dose 100 MG; Start 11/03/18 at 21:00 Senna (Senokot) 1 tab HS PO Last administered on 11/06/18 20:22; Admin Dose 1 TAB; Start 11/03/18 at 21:00 Acetaminophen (Tylenol Tab) 650 mg Q4H PRN PO MILD PAIN(1-3)OR ELEVATED TEMP; Start 11/03/18 at 17:30 Bisacodyl (Dulcolax Supp) [address] CONSTIPATION; Start 11/03/18 at 17:30 Magnesium Hydroxide (Milk Of Mag) 30 ml BID PRN PO CONSTIPATION Last administered on 11/05/18 12:20; Admin Dose 30 ML; Start 11/03/18 at 17:30 Lactulose (Enulose) 20 gm DAILY PRN PO CONSTIPATION; Start 11/03/18 at 17:30 Atorvastatin Calcium (Lipitor) 40 mg HS PO Last administered on 11/08/18 20:54; Admin Dose 40 MG; Start 11/03/18 at 21:00 Lidocaine (Lidoderm) 1 patch DAILY PRN TD PAIN; Start 11/03/18 at 17:30 Ondansetron HCl (Zofran Inj) 4 mg Q6H PRN IV NAUSEA AND/OR VOMITING; Start 11/03/18 at 17:30 Pantoprazole (Protonix Tab) 40 mg DAILY@06 PO Last administered on 11/09/18 06:53; Admin Dose 40 MG; Start 11/04/18 at 06:00 Potassium Chloride (Klor-Con 10) 10 meq DAILY PO Last administered on 11/09/18 08:16; Admin Dose 10 MEQ; Start 11/04/18 at 09:00 Trazodone HCl (Desyrel) 50 mg HS PRN PO SLEEP Last administered on 11/05/18 01:02; Admin Dose 50 MG; Start 11/03/18 at 17:30 Divalproex Sodium (Depakote) 500 mg TID PO Last administered on 11/09/18 08:16; Admin Dose 500 MG; Start 11/03/18 at 21:00 Lisinopril (Zestril) 5 mg DAILY PO Last administered on 11/09/18at 08:17; Admin Dose 5 MG; Start 11/04/18 at 12:00 Olopatadine HCl (Patanol 0.1% Oph) 1 drop BID BOTH EYES Last administered on 11/07/18at 09:08; Admin Dose 1 DROP; Start 11/05/18 at 21:00 LEXI CAMP NP Nov 09, 2018 10:37
[2018-11-09 14:00] VITALS: BP 137/79; PULSE 83; RESP 18
[2018-11-09 20:00] VITALS: BP 150/82; PULSE 72; RESP 18
[2018-11-09] MEDS: SENNA TAB PO SCH (21:00)
[2018-11-09] MEDS: ATORVASTATIN 40 MG TAB PO SCH (21:08)
[2018-11-09] MEDS: OLOPATADINE 0.2% (ONCE A DAY) OPHTH DROP 2.5 ML BOTH EYES SCH (21:09)
[2018-11-09] MEDS: traZODone 50 MG TAB PO PRN (21:11)
[2018-11-09] MEDS: ACETAMINOPHEN 325 MG TAB PO PRN (21:11)
[2018-11-10 02:15] VITALS: BP 142/65; PULSE 66; RESP 16
[2018-11-10] MEDS: PANTOPRAZOLE (EC) 40 MG TAB PO SCH (06:24)
[2018-11-10 07:28] VITALS: BP 151/67; RESP 18
[2018-11-10] MEDS: DOCUSATE SODIUM 100 MG CAP PO SCH ×2 (08:57→20:57)
[2018-11-10] MEDS: DIVALPROEX (EC) 250 MG TAB PO SCH ×3 (08:57→20:57)
[2018-11-10] MEDS: LISINOPRIL 5 MG TAB PO SCH (08:58)
[2018-11-10] MEDS: POTASSIUM CHLORIDE (SR) 10 MEQ TAB PO SCH (09:03)
--- NOTE | 2018-11-10 11:15 | PN ---
Date/Time of Note Date/Time of Note DATE: 11/10/18 TIME: 11:13 Assessment/Plan VTE Prophylaxis Risk score (from Ns)>0 risk: 4 SCD applied (from [facility]): Yes Pharmacological prophylaxis: NA/contraindicated Pharm contraindication: hemorrhagic infarct Lines/Catheters IV [facility] (from [facility] Saline Lock Urinary Cath still in place: No Assessment/Plan Hospital Course SUBJECTIVE: No overnight episode OBJECTIVE: Vital signs-see below PHYSICAL EXAM: Constitutional: Well-developed, adequately built, lying in bed comfortably. Psych: nl mood/affect, no complaints Head: atraumatic, normocephalic Eyes: nl conjunctiva, nl sclera ENMT: mucosa pink and moist, nl external ears & nose Neck: non-tender, supple Respiratory: clear to auscultation, normal air movement Cardiovascular: nl pulses, regular rate and rhythm Gastrointestinal: non-tender, soft, bowel sounds active in all 4 quadrants. Musculoskeletal/extremities: nl extremities to inspection, motor strength equal bilaterally, no focal deficit. Normal pulses,no cyanosis, no edema. Neurological:+slightly Forgetful/alert oriented x3 Skin: nl turgor ASSESSMENT/PLAN: 1. Subacute subarachnoid hemorrhage secondary to fall s/p NS review=> stable repeat CT =>.no surgery needed Continue rehab 2. Atherosclerotic vascular disease Continue statin, no aspirin secondary to ICH 3. Hypertension Stable on CODY inhibitors We will check renal function in a.m. 4. 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 History of coronary disease status post stent placement Continue statin, hold aspirin secondary to intracranial hemorrhage, antihypertensive. 6. Seizure disorders. -Stable. Continue home medications. DVT prophylaxis: SCDs/ambulation. Patient was seen in collaboration with Dr. Mauro Exam/Review of Systems Exam Vitals Vital Signs Date Temp Pulse Resp B/P (MAP) Pulse Ox O2 O2 Flow FiO2 Time Delivery Rate 11/10/18 98.1 18 151/67 97 Room Air 07:28 (95) 11/10/18 66 02:15 Intake and Output 11/09/18 11/09/18 11/10/18 1515:00 23:00 07:00 IntakeIntake Total 600 ml 240 ml OutputOutput Total 700 ml BalanceBalance 600 ml -460 ml Medications Medication Current Medications Miscellaneous Information (Pending Santyl Order For Wound Care) This patient martinez... PRN PRN XX WOUND CARE; Start 11/03/18 at 17:30 Docusate Sodium (Colace) 100 mg BID PO Last administered on 11/10/18 08:57; Admin Dose 100 MG; Start 11/03/18 at 21:00 Senna (Senokot) 1 tab HS PO Last administered on 11/06/18 20:22; Admin Dose 1 TAB; Start 11/03/18 at 21:00 Acetaminophen (Tylenol Tab) 650 mg Q4H PRN PO MILD PAIN(1-3)OR ELEVATED TEMP Last administered on 11/09/18 21:11; Admin Dose 650 MG; Start 11/03/18 at 17:30 Bisacodyl (Dulcolax Supp) 10 mg DAILY PRN ID CONSTIPATION; Start 11/03/18 at 17:30 Magnesium Hydroxide (Milk Of Mag) 30 ml BID PRN PO CONSTIPATION Last administered on 11/05/18 12:20; Admin Dose 30 ML; Start 11/03/18 at 17:30 Lactulose (Enulose) 20 gm DAILY PRN PO CONSTIPATION; Start 11/03/18 at 17:30 Atorvastatin Calcium (Lipitor) 40 mg HS PO Last administered on 11/09/18 21:08; Admin Dose 40 MG; Start 11/03/18 at 21:00 Lidocaine (Lidoderm) 1 patch DAILY PRN TD PAIN; Start 11/03/18 at 17:30 Ondansetron HCl (Zofran Inj) 4 mg Q6H PRN IV NAUSEA AND/OR VOMITING; Start 11/03/18 at 17:30 Pantoprazole (Protonix Tab) 40 mg DAILY@06 PO Last administered on 11/10/18 06:24; Admin Dose 40 MG; Start 11/04/18 at 06:00 Potassium Chloride (Klor-Con 10) 10 meq DAILY PO Last administered on 11/10/18 09:03; Admin Dose 10 MEQ; Start 11/04/18 at 09:00 Trazodone HCl (Desyrel) 50 mg HS PRN PO SLEEP Last administered on 11/09/18 21:11; Admin Dose 50 MG; Start 11/03/18 at 17:30 Divalproex Sodium (Depakote) 500 mg TID PO Last administered on 11/10/18 08:57; Admin Dose 500 MG; Start 11/03/18 at 21:00 Lisinopril (Zestril) 5 mg DAILY PO Last administered on 11/10/18 08:58; Admin Dose 5 MG; Start 11/04/18 at 12:00 Olopatadine HCl (Pataday) 1 drop HS BOTH EYES Last administered on 11/09/18 21:09; Admin Dose 1 DROP; Start 11/09/18 at 21:00 LEXI CAMP NP Nov 10, 2018 11:15
--- NOTE | 2018-11-10 12:19 | PN ---
Date/Time of Note Date/Time of Note DATE: 11/10/18 TIME: 12:18 Objective Vital Signs Date Temp Pulse Resp B/P (MAP) Pulse Ox O2 O2 Flow FiO2 Time Delivery Rate 11/10/18 98.1 18 151/67 97 Room Air 07:28 (95) 11/10/18 66 02:15 Intake and Output 11/09/18 11/09/18 11/10/18 1414:59 22:59 06:59 IntakeIntake Total 600 ml 240 ml OutputOutput Total 700 ml BalanceBalance 600 ml -460 ml Exam INTERDISCIPLINARY TEAM CONFERENCE Physical Exam: Pulm- cta Abd- soft BOWEL- Cont BLADDER-Cont SKIN- intact OT- DRESSING-sba BATHING-sba TOILETING-sba PT- BED MOBILITY- sba TRANSFERS- sba AMBULATION- cga 150 feet SPEECH- COGNITION- s A/P- Interdisciplinary team conference held today. Please see interdisciplinary sheet. Working toward d.c. on 11/13 with post discharge follow up of physical therapy, occupational therapy. Results/Medications Medications Current Medications Miscellaneous Information (Pending [facility] Order For Wound Care) This patient martinez... PRN PRN XX WOUND CARE; Start 11/03/18 at 17:30 Docusate Sodium (Colace) 100 mg BID PO Last administered on 11/10/18at 08:57; Admin Dose 100 MG; Start 11/03/18 at 21:00 Senna (Senokot) 1 tab HS PO Last administered on 11/06/18at 20:22; Admin Dose 1 TAB; Start 11/03/18 at 21:00 Acetaminophen (Tylenol Tab) 650 mg Q4H PRN PO MILD PAIN(1-3)OR ELEVATED TEMP Last administered on 11/09/18at 21:11; Admin Dose 650 MG; Start 11/03/18 at 17:30 Bisacodyl (Dulcolax Supp) 10 mg DAILY PRN [place] CONSTIPATION; Start 11/03/18 at 17:30 Magnesium Hydroxide (Milk Of Mag) 30 ml BID PRN PO CONSTIPATION Last administered on 11/05/18at 12:20; Admin Dose 30 ML; Start 11/03/18 at 17:30 Lactulose (Enulose) 20 gm DAILY PRN PO CONSTIPATION; Start 11/03/18 at 17:30 Atorvastatin Calcium (Lipitor) 40 mg HS PO Last administered on 11/09/18 21:08; Admin Dose 40 MG; Start 11/03/18 at 21:00 Lidocaine (Lidoderm) 1 patch DAILY PRN TD PAIN; Start 11/03/18 at 17:30 Ondansetron HCl (Zofran Inj) 4 mg Q6H PRN IV NAUSEA AND/OR VOMITING; Start 11/03/18 at 17:30 Pantoprazole (Protonix Tab) 40 mg DAILY@06 PO Last administered on 11/10/18 06:24; Admin Dose 40 MG; Start 11/04/18 at 06:00 Potassium Chloride (Klor-Con 10) 10 meq DAILY PO Last administered on 11/10/18 09:03; Admin Dose 10 MEQ; Start 11/04/18 at 09:00 Trazodone HCl (Desyrel) 50 mg HS PRN PO SLEEP Last administered on 11/09/18 21:11; Admin Dose 50 MG; Start 11/03/18 at 17:30 Divalproex Sodium (Depakote) 500 mg TID PO Last administered on 11/10/18 08:57; Admin Dose 500 MG; Start 11/03/18 at 21:00 Lisinopril (Zestril) 5 mg DAILY PO Last administered on 11/10/18 08:58; Admin Dose 5 MG; Start 11/04/18 at 12:00 Olopatadine HCl (Pataday) 1 drop HS BOTH EYES Last administered on 11/09/18 21:09; Admin Dose 1 DROP; Start 11/09/18 at 21:00 ASUNCION MILLARD MD Nov 10, 2018 12:19
[2018-11-10] MEDS: ACETAMINOPHEN 325 MG TAB PO PRN ×2 (13:19→20:59)
[2018-11-10 14:00] VITALS: BP 140/65; RESP 18
[2018-11-10 20:00] VITALS: BP 138/62; PULSE 73; RESP 18
[2018-11-10] MEDS: ATORVASTATIN 40 MG TAB PO SCH (20:56)
[2018-11-10] MEDS: SENNA TAB PO SCH (20:57)
[2018-11-10] MEDS: OLOPATADINE 0.2% (ONCE A DAY) OPHTH DROP 2.5 ML BOTH EYES SCH (20:57)
[2018-11-10] MEDS: traZODone 50 MG TAB PO PRN (20:59)
[2018-11-11 02:00] VITALS: BP 142/64; PULSE 71; RESP 18
[2018-11-11] MEDS: PANTOPRAZOLE (EC) 40 MG TAB PO SCH (06:27)
[2018-11-11 08:00] VITALS: BP 113/60; PULSE 74; RESP 18
[2018-11-11] MEDS: DIVALPROEX (EC) 250 MG TAB PO SCH ×3 (08:01→20:45)
[2018-11-11] MEDS: DOCUSATE SODIUM 100 MG CAP PO SCH ×2 (08:01→20:44)
[2018-11-11] MEDS: LISINOPRIL 5 MG TAB PO SCH (08:01)
[2018-11-11] MEDS: POTASSIUM CHLORIDE (SR) 10 MEQ TAB PO SCH (08:02)
--- NOTE | 2018-11-11 11:23 | PN ---
Date/Time of Note Date/Time of Note DATE: 11/11/18 TIME: 11:19 Subjective Participating with therapies Objective Vital Signs Date Temp Pulse Resp B/P (MAP) Pulse Ox O2 O2 Flow FiO2 Time Delivery Rate 11/11/18 97.3 74 18 113/60 93 Room Air 08:00 (77) Intake and Output 11/10/18 11/10/18 11/11/18 1515:00 23:00 07:00 IntakeIntake Total 240 ml OutputOutput Total 650 ml BalanceBalance -410 ml Exam pulm-cta sba ambulation Results/Medications Result Diagram: 11/11/18 0639 Results 24 hrs Laboratory Tests Test 11/11/18 06:39 Sodium Level 136 Potassium Level 4.4 Chloride Level 101 Carbon Dioxide Level 29 Anion Gap 6 Blood Urea Nitrogen 17 Creatinine 0.97 Est Glomerular Filtrat Rate mL/min Glucose Level 75 Calcium Level 8.4 Medications Current Medications Miscellaneous Information (Pending [facility] Order For Wound Care) This patient martinez... PRN PRN XX WOUND CARE; Start 11/03/18 at 17:30 Docusate Sodium (Colace) 100 mg BID PO Last administered on 11/11/18at 08:01; Admin Dose 100 MG; Start 11/03/18 at 21:00 Senna (Senokot) 1 tab HS PO Last administered on 11/10/18 20:57; Admin Dose 1 TAB; Start 11/03/18 at 21:00 Acetaminophen (Tylenol Tab) 650 mg Q4H PRN PO MILD PAIN(1-3)OR ELEVATED TEMP Last administered on 11/10/18at 20:59; Admin Dose 650 MG; Start 11/03/18 at 17:30 Bisacodyl (Dulcolax Supp) [address] CONSTIPATION; Start 11/03/18 at 17:30 Magnesium Hydroxide (Milk Of Mag) 30 ml BID PRN PO CONSTIPATION Last administered on 11/05/18at 12:20; Admin Dose 30 ML; Start 11/03/18 at 17:30 Lactulose (Enulose) 20 gm DAILY PRN PO CONSTIPATION; Start 11/03/18 at 17:30 Atorvastatin Calcium (Lipitor) 40 mg HS PO Last administered on 11/10/18at 20:56; Admin Dose 40 MG; Start 11/03/18 at 21:00 Lidocaine (Lidoderm) 1 patch DAILY PRN TD PAIN; Start 11/03/18 at 17:30 Ondansetron HCl (Zofran Inj) 4 mg Q6H PRN IV NAUSEA AND/OR VOMITING; Start 11/03/18 at 17:30 Pantoprazole (Protonix Tab) 40 mg DAILY@06 PO Last administered on 11/11/18 06:27; Admin Dose 40 MG; Start 11/04/18 at 06:00 Potassium Chloride (Klor-Con 10) 10 meq DAILY PO Last administered on 11/11/18 08:02; Admin Dose 10 MEQ; Start 11/04/18 at 09:00 Trazodone HCl (Desyrel) 50 mg HS PRN PO SLEEP Last administered on 11/10/18 20:59; Admin Dose 50 MG; Start 11/03/18 at 17:30 Divalproex Sodium (Depakote) 500 mg TID PO Last administered on 11/11/18 08:01; Admin Dose 500 MG; Start 11/03/18 at 21:00 Lisinopril (Zestril) 5 mg DAILY PO Last administered on 11/11/18 08:01; Admin Dose 5 MG; Start 11/04/18 at 12:00 Olopatadine HCl (Pataday) 1 drop HS BOTH EYES Last administered on 11/10/18 20:57; Admin Dose 1 DROP; Start 11/09/18 at 21:00 Assessment/Plan Additional Assessment/Plan Rehab- SAH/ recent BHT/scalp lac; seizure disorder Good progress, continue rehab Hypertension GERD Hyperlipidemia CAD COPD history of bipolar disorder h.o. AAA repair h.o. partial gastrectomy ASUNCION MILLARD MD Nov 11, 2018 11:22
[2018-11-11] MEDS: ACETAMINOPHEN 325 MG TAB PO PRN (13:14)
[2018-11-11 14:00] VITALS: BP 130/61; PULSE 69; RESP 18
--- NOTE | 2018-11-11 14:18 | CONS ---
Assessment/Plan Assessment/Plan Hospital Course 88 yo M with Hx of recent SAH, seizures, and multiple other comorbidities who initially p/w RUE numbness, difficulty walking, and repeated falls... Now s/p Tx to [facility] for acute rehab.. Of note, the pt had a recent mechanical GLF c/b head trauma and a tSAH. CTH is notable for an acute SAH... which is perhaps due to his previous fall. Repeat CTH is stable. P: Await CTA results (study reportedly completed and report available to radiology, but not [facility]) Clarify seizure Hx; Continue depakote per ops for now Ativan iv prn prolonged seizure (>5 min) OK to start antiplatelet Tx if medically indicated.. 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 Will follow clinically Consultation Date/Type/Reason Admit Date/Time Nov 03, 2018 at 15:21 Type of Consult Neurology Reason for Consultation SAH; seizure Requesting Provider: JARRETT LOPEZ MD, [facility] Date/Time of Note DATE: 11/11/18 TIME: 14:18 Exam Vital Signs Vitals Vital Signs Date Temp Pulse Resp B/P (MAP) Pulse Ox O2 O2 Flow FiO2 Time Delivery Rate 11/11/18 97.3 74 18 113/60 93 Room Air 08:00 (77) Intake and Output 11/10/18 11/10/18 11/11/18 1414:59 22:59 06:59 IntakeIntake Total 240 ml OutputOutput Total 650 ml BalanceBalance -410 ml Exam PE: Gen Appearance: No Apparent Distress HEENT: Normocephalic Cardiovascular: Regular rate Lungs: Clear bilaterally Abdomen: Soft Extremities: Dry NE: The patient was alert and oriented.. Language was normal. Fund of knowledge was normal. Pupils were equal and reactive to light. There was no afferent pupillary defect. Visual armstrong were normal. Funduscopic examination was limited. Extra-ocular movements were full. Ptosis was absent. There was no nystagmus. Facial sensation was normal. Face was symmetric with normal strength. Hearing was intact. Palate movements were normal. Neck strength was normal. There was normal tongue bulk and speed of movement. Tone was normal. Muscle bulk was normal. I did not see fasciculations. Arms and legs were mildly weak and symmetric. Vibration sensation was normal. Temperature and pinprick sensation was normal. Rapid alternating movements were normal. There was no dysmetria. There was no intention tremor. Gait was deferred due to bedrest. Arm and leg reflexes were 2+ and symmetric. Abbott's sign was absent. Plantar responses were flexor. PRANAY KELSEY NP Nov 11, 2018 14:18 MICHAEL REY Nov 11, 2018 14:50
--- NOTE | 2018-11-11 14:36 | PN ---
Date/Time of Note Date/Time of Note DATE: 11/11/18 TIME: 14:36 Assessment/Plan VTE Prophylaxis Risk score (from Ns)>0 risk: 4 SCD applied (from Ns): Yes Pharmacological prophylaxis: NA/contraindicated Pharm contraindication: low risk/ambulating, hemorrhagic infarct Lines/Catheters IV [facility]from [facility] Saline Lock Urinary Cath still in place: No Assessment/Plan Hospital Course SUBJECTIVE: No overnight episode OBJECTIVE: Vital signs-see below PHYSICAL EXAM: Constitutional: Well-developed, adequately built, lying in bed comfortably. Psych: nl mood/affect, no complaints Head: atraumatic, normocephalic Eyes: nl conjunctiva, nl sclera ENMT: mucosa pink and moist, nl external ears & nose Neck: non-tender, supple Respiratory: clear to auscultation, normal air movement Cardiovascular: nl pulses, regular rate and rhythm Gastrointestinal: non-tender, soft, bowel sounds active in all 4 quadrants. Musculoskeletal/extremities: nl extremities to inspection, motor strength equal bilaterally, no focal deficit. Normal pulses,no cyanosis, no edema. Neurological:+slightly Forgetful/alert oriented x3 Skin: nl turgor ASSESSMENT/PLAN: 1. Subacute subarachnoid hemorrhage secondary to fall s/p NS review=> stable repeat CT =>.no surgery needed Continue rehab 2. Atherosclerotic vascular disease Continue statin, no aspirin secondary to ICH 3. Hypertension Stable on CODY inhibitors We will check renal function in a.m. 4. 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 History of coronary disease status post stent placement Continue statin, hold aspirin secondary to intracranial hemorrhage, antihy pertensive. 6. Seizure disorders. -Stable. Continue home medications. DVT prophylaxis: SCDs/ambulation. Patient was seen in collaboration with Dr. Mauro Result Diagram: 11/11/18 0639 Results 24hrs Laboratory Tests Test 11/11/18 06:39 Sodium Level 136 Potassium Level 4.4 Chloride Level 101 Carbon Dioxide Level 29 Anion Gap 6 Blood Urea Nitrogen 17 Creatinine 0.97 Est Glomerular Filtrat Rate mL/min Glucose Level 75 Calcium Level 8.4 Exam/Review of Systems Exam Vitals Vital Signs Date Temp Pulse Resp B/P (MAP) Pulse Ox O2 O2 Flow FiO2 Time Delivery Rate 11/11/18 97.3 74 18 113/60 93 Room Air 08:00 (77) Intake and Output 11/10/18 11/10/18 11/11/18 1515:00 23:00 07:00 IntakeIntake Total 240 ml OutputOutput Total 650 ml BalanceBalance -410 ml Results Results 24hrs Laboratory Tests Test 11/11/18 06:39 Sodium Level 136 Potassium Level 4.4 Chloride Level 101 Carbon Dioxide Level 29 Anion Gap 6 Blood Urea Nitrogen 17 Creatinine 0.97 Est Glomerular Filtrat Rate mL/min Glucose Level 75 Calcium Level 8.4 Medications Medication Current Medications Miscellaneous Information (Pending Santyl Order For Wound Care) This patient martinez... PRN PRN XX WOUND CARE; Start 11/03/18 at 17:30 Docusate Sodium (Colace) 100 mg BID PO Last administered on 11/11/18 08:01; Admin Dose 100 MG; Start 11/03/18 at 21:00 Senna (Senokot) 1 tab HS PO Last administered on 11/10/18 20:57; Admin Dose 1 TAB; Start 11/03/18 at 21:00 Acetaminophen (Tylenol Tab) 650 mg Q4H PRN PO MILD PAIN(1-3)OR ELEVATED TEMP Last administered on 11/11/18at 13:14; Admin Dose 650 MG; Start 11/03/18 at 17:30 Bisacodyl (Dulcolax Supp) 10 mg DAILY PRN [place] CONSTIPATION; Start 11/03/18 at 17:30 Magnesium Hydroxide (Milk Of Mag) 30 ml BID PRN PO CONSTIPATION Last administered on 11/05/18at 12:20; Admin Dose 30 ML; Start 11/03/18 at 17:30 Lactulose (Enulose) 20 gm DAILY PRN PO CONSTIPATION; Start 11/03/18 at 17:30 Atorvastatin Calcium (Lipitor) 40 mg HS PO Last administered on 11/10/18 20:56; Admin Dose 40 MG; Start 11/03/18 at 21:00 Lidocaine (Lidoderm) 1 patch DAILY PRN TD PAIN; Start 11/03/18 at 17:30 Ondansetron HCl (Zofran Inj) 4 mg Q6H PRN IV NAUSEA AND/OR VOMITING; Start 11/03/18 at 17:30 Pantoprazole (Protonix Tab) 40 mg DAILY@06 PO Last administered on 2/26/19at 06:27; Admin Dose 40 MG; Start 11/04/18 at 06:00 Potassium Chloride (Klor-Con 10) 10 meq DAILY PO Last administered on 11/11/18 08:02; Admin Dose 10 MEQ; Start 11/04/18 at 09:00 Trazodone HCl (Desyrel) 50 mg HS PRN PO SLEEP Last administered on 11/10/18 20:59; Admin Dose 50 MG; Start 11/03/18 at 17:30 Divalproex Sodium (Depakote) 500 mg TID PO Last administered on 11/11/18 12:13; Admin Dose 500 MG; Start 11/03/18 at 21:00 Lisinopril (Zestril) 5 mg DAILY PO Last administered on 11/11/18 08:01; Admin Dose 5 MG; Start 11/04/18 at 12:00 Olopatadine HCl (Pataday) 1 drop HS BOTH EYES Last administered on 11/10/18 20:57; Admin Dose 1 DROP; Start 11/09/18 at 21:00 LEXI CAMP NP Nov 11, 2018 14:36
[2018-11-11 20:00] VITALS: BP 127/62; PULSE 67; RESP 18
[2018-11-11] MEDS: SENNA TAB PO SCH (20:44)
[2018-11-11] MEDS: ATORVASTATIN 40 MG TAB PO SCH (20:44)
[2018-11-11] MEDS: OLOPATADINE 0.2% (ONCE A DAY) OPHTH DROP 2.5 ML BOTH EYES SCH (20:45)
[2018-11-12 02:00] VITALS: BP 131/66; PULSE 70; RESP 18
[2018-11-12] MEDS: PANTOPRAZOLE (EC) 40 MG TAB PO SCH (06:09)
[2018-11-12 07:42] VITALS: BP 142/63; PULSE 58; RESP 18
[2018-11-12] MEDS: ACETAMINOPHEN 325 MG TAB PO PRN (07:52)
[2018-11-12] MEDS: DOCUSATE SODIUM 100 MG CAP PO SCH ×2 (07:52→20:42)
[2018-11-12] MEDS: DIVALPROEX (EC) 250 MG TAB PO SCH ×3 (07:52→20:42)
[2018-11-12] MEDS: POTASSIUM CHLORIDE (SR) 10 MEQ TAB PO SCH (07:52)
[2018-11-12] MEDS: LISINOPRIL 5 MG TAB PO SCH (07:53)
--- NOTE | 2018-11-12 12:03 | PN ---
Date/Time of Note Date/Time of Note DATE: 11/12/18 TIME: 12:01 Subjective Long d/w family regarding current functional status and DC goals and DC planning Objective Vital Signs Date Temp Pulse Resp B/P (MAP) Pulse Ox O2 O2 Flow FiO2 Time Delivery Rate 11/12/18 98.4 58 18 142/63 98 Room Air 07:42 (89) Intake and Output 11/11/18 11/11/18 11/12/18 1515:00 23:00 07:00 IntakeIntake Total 1000 ml 300 ml OutputOutput Total 800 ml BalanceBalance 1000 ml -500 ml Exam pulm-cta sba ambulation Results/Medications Result Diagram: 11/11/18 0639 Medications Current Medications Miscellaneous Information (Pending [facility] Order For Wound Care) This patient martinez... PRN PRN XX WOUND CARE; Start 11/03/18 at 17:30 Docusate Sodium (Colace) 100 mg BID PO Last administered on 11/12/18at 07:52; Admin Dose 100 MG; Start 11/03/18 at 21:00 Senna (Senokot) 1 tab HS PO Last administered on 11/11/18at 20:44; Admin Dose 1 TAB; Start 11/03/18 at 21:00 Acetaminophen (Tylenol Tab) 650 mg Q4H PRN PO MILD PAIN(1-3)OR ELEVATED TEMP Last administered on 11/12/18at 07:52; Admin Dose 650 MG; Start 11/03/18 at 17:30 Bisacodyl (Dulcolax Supp) 10 mg DAILY PRN [place] CONSTIPATION; Start 11/03/18 at 17:30 Magnesium Hydroxide (Milk Of Mag) 30 ml BID PRN PO CONSTIPATION Last administered on 11/05/18at 12:20; Admin Dose 30 ML; Start 11/03/18 at 17:30 Lactulose (Enulose) 20 gm DAILY PRN PO CONSTIPATION; Start 11/03/18 at 17:30 Atorvastatin Calcium (Lipitor) 40 mg HS PO Last administered on 11/11/18at 20:44; Admin Dose 40 MG; Start 11/03/18 at 21:00 Lidocaine (Lidoderm) 1 patch DAILY PRN TD PAIN; Start 11/03/18 at 17:30 Ondansetron HCl (Zofran Inj) 4 mg Q6H PRN IV NAUSEA AND/OR VOMITING; Start 11/03/18 at 17:30 Pantoprazole (Protonix Tab) 40 mg DAILY@06 PO Last administered on 11/12/18 06:09; Admin Dose 40 MG; Start 11/04/18 at 06:00 Potassium Chloride (Klor-Con 10) 10 meq DAILY PO Last administered on 11/12/18 07:52; Admin Dose 10 MEQ; Start 11/04/18 at 09:00 Trazodone HCl (Desyrel) 50 mg HS PRN PO SLEEP Last administered on 11/10/18 20:59; Admin Dose 50 MG; Start 11/03/18 at 17:30 Divalproex Sodium (Depakote) 500 mg TID PO Last administered on 11/12/18 07:52; Admin Dose 500 MG; Start 11/03/18 at 21:00 Lisinopril (Zestril) 5 mg DAILY PO Last administered on 11/12/18 07:53; Admin Dose 5 MG; Start 11/04/18 at 12:00 Olopatadine HCl (Pataday) 1 drop HS BOTH EYES Last administered on 11/11/18 20:45; Admin Dose 1 DROP; Start 11/09/18 at 21:00 Assessment/Plan Additional Assessment/Plan Rehab- SAH/ recent BHT/scalp lac; seizure disorder Continue rehab Hypertension GERD Hyperlipidemia CAD COPD history of bipolar disorder h.o. AAA repair h.o. partial gastrectomy ASUNCION MILLARD MD Nov 12, 2018 12:03
--- NOTE | 2018-11-12 12:11 | PN ---
Date/Time of Note Date/Time of Note DATE: 11/12/18 TIME: 12:11 Assessment/Plan VTE Prophylaxis Risk score (from Ns)>0 risk: 4 SCD applied (from [facility]): Yes Pharmacological prophylaxis: NA/contraindicated Pharm contraindication: hemorrhagic infarct Lines/Catheters IV Catheter Type (from [facility]): Saline Lock Urinary Cath still in place: No Assessment/Plan Hospital Course SUBJECTIVE: No overnight episode OBJECTIVE: Vital signs-see below PHYSICAL EXAM: Constitutional: Well-developed, adequately built, lying in bed comfortably. Psych: nl mood/affect, no complaints Head: atraumatic, normocephalic Eyes: nl conjunctiva, nl sclera ENMT: mucosa pink and moist, nl external ears & nose Neck: non-tender, supple Respiratory: clear to auscultation, normal air movement Cardiovascular: nl pulses, regular rate and rhythm Gastrointestinal: non-tender, soft, bowel sounds active in all 4 quadrants. Musculoskeletal/extremities: nl extremities to inspection, motor strength equal bilaterally, no focal deficit. Normal pulses,no cyanosis, no edema. Neurological:+slightly Forgetful/alert oriented x3 Skin: nl turgor ASSESSMENT/PLAN: 1. Subacute subarachnoid hemorrhage secondary to fall s/p NS review=> stable repeat CT =>.no surgery needed Continue rehab 2. Atherosclerotic vascular disease Continue statin, no aspirin secondary to ICH 3. Hypertension Stable on CODY inhibitors We will check renal function in a.m. 4. 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 History of coronary disease status post stent placement Continue statin, hold aspirin secondary to intracranial hemorrhage, antihypertensive. 6. Seizure disorders. -Stable. Continue home medications. DVT prophylaxis: SCDs/ambulation. Patient was seen in collaboration with Dr. Mauro Result Diagram: 11/11/18 0639 Exam/Review of Systems Exam Vitals Vital Signs Date Temp Pulse Resp B/P (MAP) Pulse Ox O2 O2 Flow FiO2 Time Delivery Rate 11/12/18 98.4 58 18 142/63 98 Room Air 07:42 (89) Intake and Output 11/11/18 11/11/18 11/12/18 1515:00 23:00 07:00 IntakeIntake Total 1000 ml 300 ml OutputOutput Total 800 ml BalanceBalance 1000 ml -500 ml Medications Medication Current Medications Miscellaneous Information (Pending Santyl Order For Wound Care) This patient martinez... PRN PRN XX WOUND CARE; Start 11/03/18 at 17:30 Docusate Sodium (Colace) 100 mg BID PO Last administered on 11/12/18 07:52; Admin Dose 100 MG; Start 11/03/18 at 21:00 Senna (Senokot) 1 tab HS PO Last administered on 11/11/18 20:44; Admin Dose 1 TAB; Start 11/03/18 at 21:00 Acetaminophen (Tylenol Tab) 650 mg Q4H PRN PO MILD PAIN(1-3)OR ELEVATED TEMP Last administered on 11/12/18 07:52; Admin Dose 650 MG; Start 11/03/18 at 17:30 Bisacodyl (Dulcolax Supp) 10 mg DAILY PRN [place] CONSTIPATION; Start 11/03/18 at 17:30 Magnesium Hydroxide (Milk Of Mag) 30 ml BID PRN PO CONSTIPATION Last adm inistered on 11/05/18 12:20; Admin Dose 30 ML; Start 11/03/18 at 17:30 Lactulose (Enulose) 20 gm DAILY PRN PO CONSTIPATION; Start 11/03/18 at 17:30 Atorvastatin Calcium (Lipitor) 40 mg HS PO Last administered on 11/11/18 20:44; Admin Dose 40 MG; Start 11/03/18 at 21:00 Lidocaine (Lidoderm) 1 patch DAILY PRN TD PAIN; Start 11/03/18 at 17:30 Ondansetron HCl (Zofran Inj) 4 mg Q6H PRN IV NAUSEA AND/OR VOMITING; Start 11/03/18 at 17:30 Pantoprazole (Protonix Tab) 40 mg DAILY@06 PO Last administered on 11/12/18 06:09; Admin Dose 40 MG; Start 11/04/18 at 06:00 Potassium Chloride (Klor-Con 10) 10 meq DAILY PO Last administered on 11/12/18 07:52; Admin Dose 10 MEQ; Start 11/04/18 at 09:00 Trazodone HCl (Desyrel) 50 mg HS PRN PO SLEEP Last administered on 11/10/18 20:59; Admin Dose 50 MG; Start 11/03/18 at 17:30 Divalproex Sodium (Depakote) 500 mg TID PO Last administered on 11/12/18 07:52; Admin Dose 500 MG; Start 11/03/18 at 21:00 Lisinopril (Zestril) 5 mg DAILY PO Last administered on 11/12/18 07:53; Admin Dose 5 MG; Start 11/04/18 at 12:00 Olopatadine HCl (Pataday) 1 drop HS BOTH EYES Last administered on 11/11/18at 20:45; Admin Dose 1 DROP; Start 11/09/18 at 21:00 LEXI CAMP NP Nov 12, 2018 12:11
--- NOTE | 2018-11-12 13:40 | PN ---
Date/Time of Note Date/Time of Note DATE: 11/12/18 TIME: 13:23 Subjective Patient overall improving Objective Vital Signs Date Temp Pulse Resp B/P (MAP) Pulse Ox O2 O2 Flow FiO2 Time Delivery Rate 11/12/18 98.4 58 18 142/63 98 Room Air 07:42 (89) Intake and Output 11/11/18 11/11/18 11/12/18 1515:00 23:00 07:00 IntakeIntake Total 1000 ml 300 ml OutputOutput Total 800 ml BalanceBalance 1000 ml -500 ml Exam pulm-cta abd-soft sba ambulation 150 feet Results/Medications Result Diagram: 11/11/18 0639 Medications Current Medications Miscellaneous Information (Pending [facility] Order For Wound Care) This patient martinez... PRN PRN XX WOUND CARE; Start 11/03/18 at 17:30 Docusate Sodium (Colace) 100 mg BID PO Last administered on 11/12/18 07:52; Admin Dose 100 MG; Start 11/03/18 at 21:00 Senna (Senokot) 1 tab HS PO Last administered on 11/11/18at 20:44; Admin Dose 1 TAB; Start 11/03/18 at 21:00 Acetaminophen (Tylenol Tab) 650 mg Q4H PRN PO MILD PAIN(1-3)OR ELEVATED TEMP Last administered on 11/12/18 07:52; Admin Dose 650 MG; Start 11/03/18 at 17:30 Bisacodyl (Dulcolax Supp) 10 mg DAILY PRN [place] CONSTIPATION; Start 11/03/18 at 17:30 Magnesium Hydroxide (Milk Of Mag) 30 ml BID PRN PO CONSTIPATION Last administered on 11/05/18at 12:20; Admin Dose 30 ML; Start 11/03/18 at 17:30 Lactulose (Enulose) 20 gm DAILY PRN PO CONSTIPATION; Start 11/03/18 at 17:30 Atorvastatin Calcium (Lipitor) 40 mg HS PO Last administered on 11/11/18at 20:44; Admin Dose 40 MG; Start 11/03/18 at 21:00 Lidocaine (Lidoderm) 1 patch DAILY PRN TD PAIN; Start 11/03/18 at 17:30 Ondansetron HCl (Zofran Inj) 4 mg Q6H PRN IV NAUSEA AND/OR VOMITING; Start 11/03/18 at 17:30 Pantoprazole (Protonix Tab) 40 mg DAILY@06 PO Last administered on 11/12/18 06:09; Admin Dose 40 MG; Start 11/04/18 at 06:00 Potassium Chloride (Klor-Con 10) 10 meq DAILY PO Last administered on 11/12/18 07:52; Admin Dose 10 MEQ; Start 11/04/18 at 09:00 Trazodone HCl (Desyrel) 50 mg HS PRN PO SLEEP Last administered on 11/10/18 20:59; Admin Dose 50 MG; Start 11/03/18 at 17:30 Divalproex Sodium (Depakote) 500 mg TID PO Last administered on 11/12/18 12:34; Admin Dose 500 MG; Start 11/03/18 at 21:00 Lisinopril (Zestril) 5 mg DAILY PO Last administered on 11/12/18 07:53; Admin Dose 5 MG; Start 11/04/18 at 12:00 Olopatadine HCl (Pataday) 1 drop HS BOTH EYES Last administered on 11/11/18 20:45; Admin Dose 1 DROP; Start 11/09/18 at 21:00 Assessment/Plan Additional Assessment/Plan Rehab- SAH/ recent BHT/scalp lac; seizure disorder Continue rehab. Family conference today with daughter, son, and patient. Current functional level and cognitive level reviewed. Patient declining SNF at this point, and wants to go home. Various DC options reviewed during family confernece, and patient still would like to return home. Hypertension GERD Hyperlipidemia CAD COPD history of bipolar disorder h.o. AAA repair h.o. partial gastrectomy ASUNCION MILLARD MD Nov 12, 2018 13:39
[2018-11-12] MEDS ORDERED: traMADol 50 MG TAB PO PRN (14:30)
--- NOTE | 2018-11-12 14:59 | CONS ---
Assessment/Plan Assessment/Plan Hospital Course 88 yo M with Hx of recent SAH, seizures, and multiple other comorbidities who initially p/w RUE numbness, difficulty walking, and repeated falls... Now s/p Tx to [facility] for acute rehab.. Of note, the pt had a recent mechanical GLF c/b head trauma and a tSAH. CTH is notable for an acute SAH... which is perhaps due to his previous fall. Repeat CTH is stable CTA was without avm or aneurysm P: Continue depakote per ops for now Ativan iv prn prolonged seizure (>5 min) OK to start antiplatelet Tx if medically indicated.. PT/OT/ST per cable tool operator Will follow clinically Consultation Date/Type/Reason Admit Date/Time Nov 03, 2018 at 15:21 Type of Consult Neurology Reason for Consultation SAH Requesting Provider: JARRETT LOPEZ MD, [facility] Date/Time of Note DATE: 11/12/18 TIME: 14:58 24 HR Interval Summary Free Text/Dictation Continues VR. Exam Vital Signs Vitals Vital Signs Date Temp Pulse Resp B/P (MAP) Pulse Ox O2 O2 Flow FiO2 Time Delivery Rate 11/12/18 98.4 58 18 142/63 98 Room Air 07:42 (89) Intake and Output 11/11/18 11/11/18 11/12/18 1515:00 23:00 07:00 IntakeIntake Total 1000 ml 300 ml OutputOutput Total 800 ml BalanceBalance 1000 ml -500 ml Exam PE: Gen Appearance: No Apparent Distress HEENT: Normocephalic Cardiovascular: Regular rate Lungs: Clear bilaterally Abdomen: Soft Extremities: Dry NE: The patient was alert and oriented.. Language was normal. Fund of knowledge was normal. Pupils were equal and reactive to light. There was no afferent pupillary defect. Visual armstrong were normal. Funduscopic examination was limited. Extra-ocular movements were full. Ptosis was absent. There was no nystagmus. Facial sensation was normal. Face was symmetric with normal strength. Hearing was intact. Palate movements were normal. Neck strength was normal. There was normal tongue bulk and speed of movement. Tone was normal. Muscle bulk was normal. I did not see fasciculations. Arms and legs were mildly weak and symmetric. Vibration sensation was normal. Temperature and pinprick sensation was normal. Rapid alternating movements were normal. There was no dysmetria. There was no intention tremor. Gait was deferred due to bedrest. Arm and leg reflexes were 2+ and symmetric. Abbott's sign was absent. Plantar responses were flexor. PRANAY KELSEY NP Nov 12, 2018 14:59 MICHAEL REY Nov 12, 2018 15:09
[2018-11-12 19:31] VITALS: BP 124/63; PULSE 69; RESP 18
[2018-11-12] MEDS: ATORVASTATIN 40 MG TAB PO SCH (20:42)
[2018-11-12] MEDS: OLOPATADINE 0.2% (ONCE A DAY) OPHTH DROP 2.5 ML BOTH EYES SCH (20:42)
[2018-11-12] MEDS: SENNA TAB PO SCH (20:42)
[2018-11-12] MEDS: traZODone 50 MG TAB PO PRN (22:36)
[2018-11-13 02:00] VITALS: BP 130/68; PULSE 74; RESP 18
--- NOTE | 2018-11-13 03:53 | PN ---
DATE: 11/12/2018 PSYCHOLOGY -- INDIVIDUAL SESSION -- [id number] This is a followup on a patient who was seen last week. The patient is preparing for discharge. The patient does have a history of bipolar disorder and has a slight mild cognitive impairment. The patient is insisting on going home. The patient was questioned whether the patient does have the ability to make adequate decisions for himself. The patient's family was present with.the patient's permission and all of them wanted him to go to a [place] [facility] facility. The patient is refusing this. The patient was given a mental status evaluation that was similar to the one he had last week, and he is actually functioning slightly better. The patient is making a poor decision but he is actually adequate to make his own decisions. The patient is in denial however, and is making a poor decision in regard to trying to go home. He has had problems in the past with going to different hospitals and continued to have falls. It would be certainly better for him and it was recommended by this restorative aide that he go to a [place] [facility] facility. His family also encouraged this. The patient was ignoring this and was insisting on going home. It is likely if he does go home, that there could be a negative consequences. The patient states that he has help all the time there, but it is not exactly clear as to how he really does have help there. The patient's family says that he does not have 24/7 care. It was suggested if he does go home that they increase the level of care that he does have. The patient's daughter was giving him care and is now feeling like she is overwhelmed and cannot do this any longer. If she is not able to give him care, he is going to have major problems in caring for himself. Hopefully, given the situation, he eventually will make the correct decision to go to a half-way until he can get stronger and better and be able to help himself with more self-care tasks. I consulted with the social work job titles as well as Dr. Aimee Demarco about this case, and unfortunately he is making a poor decision but is able and capable of making his own decisions at this point. Dictated By: WILLIAM PULIDO PHD ANGELIKA/NOVA Conf#: [id number] DID#: [id number] [facility]
[2018-11-13] MEDS: PANTOPRAZOLE (EC) 40 MG TAB PO SCH (06:19)
[2018-11-13 07:30] VITALS: BP 148/68; PULSE 66; RESP 20
[2018-11-13 08:00] VITALS: BP 98/51; PULSE 87; RESP 20
[2018-11-13] MEDS: LISINOPRIL 5 MG TAB PO SCH (08:41)
[2018-11-13] MEDS: POTASSIUM CHLORIDE (SR) 10 MEQ TAB PO SCH (08:41)
[2018-11-13] MEDS: DOCUSATE SODIUM 100 MG CAP PO SCH ×2 (08:41→21:47)
[2018-11-13] MEDS: DIVALPROEX (EC) 250 MG TAB PO SCH ×3 (08:42→21:47)
--- NOTE | 2018-11-13 13:04 | DS ---
Date/Time of Note Date/Time of Note DATE: 11/13/18 TIME: 12:58 Discharge Summary Admission/Discharge Info Admit Date/Time Nov 03, 2018 at 15:21 Discharge Date/Time Discharge Diagnosis 1. Subarachnoid hemorrhage 2. Seizure disorder. 3. Pneumonia 4. Gastroesophageal reflux disease. 5. Coronary artery disease. 6. Anemia. 7. History of bipolar disorder. 8. History of abdominal aortic aneurysm repair. 9. Hyperlipidemia. 10. Hypertension 10. Improvements in self-care, mobility and cognition. Patient Condition: Good Hospital Course The patient was admitted for comprehensive interdisciplinary rehabilitation and made steady functional gains from a Mod/min level to a SBA level for self care tasks and mobility including ambulating over 150 feet with the use of a FWW. Patient also improved cognitively and was Independent for decision making processes and cognitive tasks per neuropsychology and speech therapy assessments. Various discharge options were reviewed with the patient and family during family conferences, and each time patient was adamant about returning to his own home. Patient is being discharged home with the recommendation of home health PT, OT RN and SW follow up. The DC meds are per the medication reconciliation sheet. The discharge equipment recommendations include: FWW, BSC, shower chair. The patient will follow up with PMD upon DC. Home Meds Reported Medications Temazepam* (Temazepam*) 30 Mg Capsule, 30 MG PO HS PRN for INSOMNIA, CAP 10/29/18 Simvastatin* (Zocor*) 40 Mg Tablet, 40 MG PO QHS, #30 TAB 10/29/18 Potassium Chloride* (K-Dur*) 10 Meq Tab.prt.sr, 10 MEQ PO DAILY, TAB 10/29/18 Esomeprazole Mag Trihydrate (Nexium) 40 Mg Capsule.dr, 40 MG PO DAILY, #30 CAP 10/29/18 Divalproex Sodium* (Depakote*) 500 Mg Tablet.dr, 500 MG PO TID, #90 TAB 10/29/18 Primary Care Provider MD FREEMAN Adam LIVA L. MD Nov 13, 2018 13:04
[2018-11-13 14:00] VITALS: BP 108/57; PULSE 83; RESP 20
--- NOTE | 2018-11-13 14:03 | PN ---
Date/Time of Note Date/Time of Note DATE: 11/13/18 TIME: 14:03 Assessment/Plan VTE Prophylaxis Risk score (from Ns)>0 risk: 4 SCD applied (from [facility]): Yes Pharmacological prophylaxis: NA/contraindicated Pharm contraindication: low risk/ambulating, hemorrhagic infarct Lines/Catheters IV C[facility]ter Type (from [facility] Saline Lock Urinary Cath still in place: No Assessment/Plan Hospital Course SUBJECTIVE: No overnight episode OBJECTIVE: Vital signs-see below PHYSICAL EXAM: Constitutional: Well-developed, adequately built, lying in bed comfortably. Psych: nl mood/affect, no complaints Head: atraumatic, normocephalic Eyes: nl conjunctiva, nl sclera ENMT: mucosa pink and moist, nl external ears & nose Neck: non-tender, supple Respiratory: clear to auscultation, normal air movement Cardiovascular: nl pulses, regular rate and rhythm Gastrointestinal: non-tender, soft, bowel sounds active in all 4 quadrants. Musculoskeletal/extremities: nl extremities to inspection, motor strength equal bilaterally, no focal deficit. Normal pulses,no cyanosis, no edema. Neurological:+slightly Forgetful/alert oriented x3 Skin: nl turgor ASSESSMENT/PLAN: 1. Subacute subarachnoid hemorrhage secondary to fall s/p NS review=> stable repeat CT =>.no surgery needed Continue rehab 2. Atherosclerotic vascular disease Continue statin, no aspirin secondary to ICH 3. Hypertension Stable on CODY inhibitors We will check renal function in a.m. 4. 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 History of coronary disease status post stent placement Continue statin, hold aspirin secondary to intracranial hemorrhage, antihy pertensive. 6. Seizure disorders. -Stable. Continue home medications. DVT prophylaxis: SCDs/ambulation. Patient was seen in collaboration with Dr. Mauro Result Diagram: 11/11/18 0639 Exam/Review of Systems Exam Vitals Vital Signs Date Temp Pulse Resp B/P (MAP) Pulse Ox O2 O2 Flow FiO2 Time Delivery Rate 11/13/18 98.2 66 20 148/68 97 Room Air 07:30 (94) Intake and Output 11/12/18 11/12/18 11/13/18 1515:00 23:00 07:00 IntakeIntake Total 900 ml 500 ml 800 ml BalanceBalance 900 ml 500 ml 800 ml Medications Medication Current Medications Miscellaneous Information (Pending Santyl Order For Wound Care) This patient martinez... PRN PRN XX WOUND CARE; Start 11/03/18 at 17:30 Docusate Sodium (Colace) 100 mg BID PO Last administered on 11/13/18 08:41; Admin Dose 100 MG; Start 11/03/18 at 21:00 Senna (Senokot) 1 tab HS PO Last administered on 11/12/18 20:42; Admin Dose 1 TAB; Start 11/03/18 at 21:00 Acetaminophen (Tylenol Tab) 650 mg Q4H PRN PO MILD PAIN(1-3)OR ELEVATED TEMP Last administered on 11/12/18 07:52; Admin Dose 650 MG; Start 11/03/18 at 17:30 Bisacodyl (Dulcolax Supp) 10 mg DAILY PRN OK CONSTIPATION; Start 11/03/18 at 17:30 Magnesium Hydroxide (Milk Of Mag) 30 ml BID PRN PO CONSTIPATION Last administered on 11/05/18 12:20; Admin Dose 30 ML; Start 11/03/18 at 17:30 Lactulose (Enulose) 20 gm DAILY PRN PO CONSTIPATION; Start 11/03/18 at 17:30 Atorvastatin Calcium (Lipitor) 40 mg HS PO Last administered on 11/12/18 20:42; Admin Dose 40 MG; Start 11/03/18 at 21:00 Lidocaine (Lidoderm) 1 patch DAILY PRN TD PAIN; Start 11/03/18 at 17:30 Ondansetron HCl (Zofran Inj) 4 mg Q6H PRN IV NAUSEA AND/OR VOMITING; Start 11/03/18 at 17:30 Pantoprazole (Protonix Tab) 40 mg DAILY@06 PO Last administered on 11/13/18 06:19; Admin Dose 40 MG; Start 11/04/18 at 06:00 Potassium Chloride (Klor-Con 10) 10 meq DAILY PO Last administered on 11/13/18 08:41; Admin Dose 10 MEQ; Start 11/04/18 at 09:00 Trazodone HCl (Desyrel) 50 mg HS PRN PO SLEEP Last administered on 11/12/18 22:36; Admin Dose 50 MG; Start 11/03/18 at 17:30 Divalproex Sodium (Depakote) 500 mg TID PO Last administered on 11/13/18 12:13; Admin Dose 500 MG; Start 11/03/18 at 21:00 Lisinopril (Zestril) 5 mg DAILY PO Last administered on 11/13/18 08:41; Admin Dose 5 MG; Start 11/04/18 at 12:00 Olopatadine HCl (Pataday) 1 drop HS BOTH EYES Last administered on 11/12/18 20:42; Admin Dose 1 DROP; Start 11/09/18 at 21:00 Tramadol HCl (Ultram) 50 mg Q6H PRN PO MODERATE PAIN LEVEL 4-6 Last administered on 11/12/18 14:34; Admin Dose 50 MG; Start 11/12/18 at 14:30 LEXI CAMP NP Nov 13, 2018 14:03
--- NOTE | 2018-11-13 14:49 | CONS ---
Assessment/Plan Assessment/Plan Hospital Course 88 yo M with Hx of recent SAH, seizures, and multiple other comorbidities who initially p/w RUE numbness, difficulty walking, and repeated falls... Now s/p Tx to [facility] for acute rehab.. Of note, the pt had a recent mechanical GLF c/b head trauma and a tSAH. CTH is notable for an acute SAH... which is perhaps due to his previous fall. Repeat CTH is stable CTA was without avm or aneurysm P: Continue depakote per ops for now Ativan iv prn prolonged seizure (>5 min) OK to start antiplatelet Tx if medically indicated.. PT/OT/ST per network development coordinator Will follow clinically Consultation Date/Type/Reason Admit Date/Time Nov 03, 2018 at 15:21 Type of Consult Neurology Reason for Consultation SAH Requesting Provider: JARRETT LOPEZ MD, [facility] Date/Time of Note DATE: 11/13/18 TIME: 14:49 24 HR Interval Summary Free Text/Dictation Continues VR. Awaiting discharge. Exam Vital Signs Vitals Vital Signs Date Temp Pulse Resp B/P (MAP) Pulse Ox O2 O2 Flow FiO2 Time Delivery Rate 11/13/18 98.2 83 20 108/57 96 Room Air 14:00 (74) Intake and Output 11/12/18 11/12/18 11/13/18 1515:00 23:00 07:00 IntakeIntake Total 900 ml 500 ml 800 ml BalanceBalance 900 ml 500 ml 800 ml Exam PE: Gen Appearance: No Apparent Distress HEENT: Normocephalic Cardiovascular: Regular rate Lungs: Clear bilaterally Abdomen: Soft Extremities: Dry NE: The patient was alert and oriented.. Language was normal. Fund of knowledge was normal. Pupils were equal and reactive to light. There was no afferent pupillary defect. Visual armstrong were normal. Funduscopic examination was limited. Extra-ocular movements were full. Ptosis was absent. There was no nystagmus. Facial sensation was normal. Face was symmetric with normal strength. Hearing was intact. Palate movements were normal. Neck strength was normal. There was normal tongue bulk and speed of movement. Tone was normal. Muscle bulk was normal. I did not see fasciculations. Arms and legs were strong. Vibration sensation was normal. Temperature and pinprick sensation was normal. Rapid alternating movements were normal. There was no dysmetria. There was no intention tremor. Gait was deferred due to bedrest. Arm and leg reflexes were 2+ and symmetric. Abbott's sign was absent. Plantar responses were flexor. PRANAY KELSEY NP Nov 13, 2018 14:49 MICHAEL REY Nov 13, 2018 16:41
[2018-11-13 20:00] VITALS: BP 134/74; PULSE 68; RESP 18
[2018-11-13] MEDS ORDERED: CEPASTAT LOZENGE MT PRN (21:30)
[2018-11-13] MEDS: SENNA TAB PO SCH (21:47)
[2018-11-13] MEDS: ATORVASTATIN 40 MG TAB PO SCH (21:47)
[2018-11-13] MEDS: OLOPATADINE 0.2% (ONCE A DAY) OPHTH DROP 2.5 ML BOTH EYES SCH (21:48)
[2018-11-13] MEDS: traZODone 50 MG TAB PO PRN (21:49)
[2018-11-14 02:27] VITALS: BP 111/56; PULSE 65; RESP 18
[2018-11-14] MEDS: PANTOPRAZOLE (EC) 40 MG TAB PO SCH (06:41)
[2018-11-14 07:00] VITALS: BP 114/56; PULSE 64; RESP 18
[2018-11-14] MEDS: DIVALPROEX (EC) 250 MG TAB PO SCH (08:25)
[2018-11-14] MEDS: LISINOPRIL 5 MG TAB PO SCH (08:26)
[2018-11-14] MEDS: DOCUSATE SODIUM 100 MG CAP PO SCH (08:26)
[2018-11-14] MEDS: POTASSIUM CHLORIDE (SR) 10 MEQ TAB PO SCH (08:26)
--- NOTE | 2018-11-14 10:39 | PN ---
Date/Time of Note Date/Time of Note DATE: 11/14/18 TIME: 10:37 Assessment/Plan VTE Prophylaxis Risk score (from Ns)>0 risk: 4 SCD applied (from Ns): Yes Pharmacological prophylaxis: NA/contraindicated Pharm contraindication: hemorrhagic infarct Lines/Catheters [facility] Saline Lock Urinary Cath still in place: No Assessment/Plan Hospital Course SUBJECTIVE: DC was held yesterday due to inability to get family member.Pt is now getting discharged home. OBJECTIVE: Vital signs-see below PHYSICAL EXAM: Constitutional: Well-developed, adequately built, lying in bed comfortably. Psych: nl mood/affect, no complaints Head: atraumatic, normocephalic Eyes: nl conjunctiva, nl sclera ENMT: mucosa pink and moist, nl external ears & nose Neck: non-tender, supple Respiratory: clear to auscultation, normal air movement Cardiovascular: nl pulses, regular rate and rhythm Gastrointestinal: non-tender, soft, bowel sounds active in all 4 quadrants. Musculoskeletal/extremities: nl extremities to inspection, motor strength equal bilaterally, no focal deficit. Normal pulses,no cyanosis, no edema. Neurological:+slightly Forgetful/alert oriented x3 Skin: nl turgor ASSESSMENT/PLAN: 1. Subacute subarachnoid hemorrhage secondary to fall s/p NS review=> stable repeat CT =>.no surgery needed Continue rehab 2. Atherosclerotic vascular disease Continue statin, no aspirin secondary to ICH 3. Hypertension Stable on CODY inhibitors We will check renal function in a.m. 4. 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 History of coronary disease status post stent placement Continue statin, hold aspirin secondary to intracranial hemorrhage, antihypertensive. 6. Seizure disorders. -Stable. Continue home medications. DVT prophylaxis: SCDs/ambulation. Patient was seen in collaboration with Dr. Mauro Result Diagram: 11/11/18 0639 Exam/Review of Systems Exam Vitals Vital Signs Date Temp Pulse Resp B/P (MAP) Pulse Ox O2 O2 Flow FiO2 Time Delivery Rate 11/14/18 98.0 64 18 114/56 96 Room Air 07:00 (75) Intake and Output 11/13/18 11/13/18 11/14/18 1515:00 23:00 07:00 IntakeIntake Total 100 ml 600 ml 240 ml OutputOutput Total 150 ml BalanceBalance 100 ml 600 ml 90 ml LEXI CAMP NP Nov 14, 2018 10:39
== END 2018-11-14 09:50 | disposition home health service (06) | DRG 56 ==
LOC: VRC 15:21 → UNDODISIN 11-13 15:55
PROVIDERS: ADMIT Physical Medicine & Rehabilitation; ATTEND Internal Medicine Pulmonary Disease
DX: I69.851 Hemiplegia and hemiparesis following other cerebrovascular disease affecting right dominant side (principal); S06.6X0A Traumatic subarachnoid hemorrhage without loss of consciousness, initial encounter; J18.9 Pneumonia, unspecified organism; J44.0 Chronic obstructive pulmonary disease with (acute) lower respiratory infection; F31.89 Other bipolar disorder; W19.XXXA Unspecified fall, initial encounter; F03.90 Unspecified dementia, unspecified severity, without behavioral disturbance, psychotic disturbance, mood disturbance, and anxiety; I25.10 Atherosclerotic heart disease of native coronary artery without angina pectoris; Z95.5 Presence of coronary angioplasty implant and graft; I10 Essential (primary) hypertension; G40.909 Epilepsy, unspecified, not intractable, without status epilepticus; K21.9 Gastro-esophageal reflux disease without esophagitis; E78.5 Hyperlipidemia, unspecified; D64.9 Anemia, unspecified; F06.8 Other specified mental disorders due to known physiological condition
CPT/HCPCS: 80048; 80053; 81003; 85025; 87081; 87086; 92507; 92523; 97110; 97112; 97116; 97163; 97166; 97530; 97535; 97542

== ENCOUNTER 2019-03-04 21:05 | Inpatient (IN) | payer MEDICARE, BC ==
[~2019-03-04] VITALS: Ht 165.1 cm; Wt 60.0 kg
--- NOTE | 2019-03-04 22:03 | ERD ---
ER Documentation Chief Complaint Chief Complaint pT FELL THIS MORNING AND IS TAKING PLAVIX HPI The patient is a 88-year-old male, presenting to the ER because he had a syncopal episode this morning around 5 AM according to the daughter. However the decline fainting, but his history is not reliable. He has frequent falls according to the daughter, complains of headache, denies facial pain, neck pain, chest pain, dyspnea, abdominal pain, vomiting, dysuria, diarrhea. He does not smoke nor drink. Past medical history: Seizure disorder, hypertension, bipolar, CAD, history of subarachnoid hemorrhage, GERD, dyslipidemia Past surgical history: Stent PCI, abdominal aortic aneurysm ROS All systems reviewed and are negative except as per history of present illness. Medications Home Meds Reported Medications Temazepam* (Temazepam*) 30 Mg Capsule, 30 MG PO HS PRN for INSOMNIA, CAP 10/29/18 Simvastatin* (Zocor*) 40 Mg Tablet, 40 MG PO QHS, #30 TAB 10/29/18 Potassium Chloride* (K-Dur*) 10 Meq Tab.prt.sr, 10 MEQ PO DAILY, TAB 10/29/18 Esomeprazole Mag Trihydrate (Nexium) 40 Mg Capsule.dr, 40 MG PO DAILY, #30 CAP 10/29/18 Divalproex Sodium* (Depakote*) 500 Mg Tablet.dr, 500 MG PO TID, #90 TAB 10/29/18 Allergies Allergies: Coded Allergies: No Known Allergies (Verified Allergy, Mild, 10/29/18) PMhx/Soc History of Surgery: Yes Anesthesia Reaction: No Hx Neurological Disorder: Yes (SEIZURE) Hx Respiratory Disorders: No Hx Cardiac Disorders: Yes (HYPERTENSION) Hx Psychiatric Problems: Yes (BIPOLAR DISORDER) Hx Miscellaneous Medical Probl: Yes (SDH, CAD) Hx Alcohol Use: No Hx Substance Use: No Hx Tobacco Use: Yes Physical Exam Vitals Vital Signs Date Temp Pulse Resp B/P (MAP) Pulse Ox O2 O2 Flow FiO2 Time Delivery Rate 03/04/19 98.8 48 20 113/58 100 Room Air 22:19 (76) 03/04/19 97.0 60 18 104/56 99 21:24 (72) Physical Exam Const: No acute distress. Head: Forehead with superficial abrasion with dried blood Eyes: Normal Conjunctiva. ENT: Normal External Ears, Nose and Mouth. Neck: Full range of motion. No meningismus. Resp: Clear to auscultation bilaterally. Cardio: Regular rate and rhythm. Abd: Soft, non distended, normal bowel sounds, non tender. Skin: Ecchymosis throughout the body Back: No midline or flank tenderness. Ext: No cyanosis, or edema. Neur: Awake and alert. No focal deficit Psych: Normal Mood and Affect. Result Diagram: 03/04/19 2211 03/04/19 2211 Results 24 hrs Laboratory Tests Test 03/04/19 22:11 03/04/19 22:15 White Blood Count 5.2 10^3/ul Red Blood Count 3.47 10^6/ul Hemoglobin 11.5 g/dl Hematocrit 34.8 % Mean Corpuscular Volume 100.3 fl Mean Corpuscular Hemoglobin 33.1 pg Mean Corpuscular Hemoglobin Concent 33.0 g/dl Red Cell Distribution Width 15.2 % Platelet Count 60 10^3/UL Mean Platelet Volume 11.1 fl Immature Granulocytes % 1.100 % Neutrophils % % Segmented Neutrophils % (Manual) 40 % Band Neutrophils % (Manual) 4 % Lymphocytes % % Lymphocytes % (Manual) 40 % Monocytes % % Monocytes % (Manual) 16 % Eosinophils % % Basophils % % Nucleated Red Blood Cells % 0.0 /100WBC Immature Granulocytes # 0.060 10^3/ul Neutrophils # 10^3/ul Neutrophils # (Manual) 2.1 10^3/ul Band Neutrophils # 0.2 10^3/ul Lymphocytes (Manual) 2.0 10^3/ul Lymphocytes # 10^3/ul Monocytes # 10^3/ul Monocytes # (Manual) 0.8 10^3/ul Eosinophils # 10^3/ul Basophils # 10^3/ul Nucleated Red Blood Cells # 10^3/ul Platelet Estimate DECREASED Giant Platelets 1 % Poikilocytosis 2+ Anisocytosis 1+ Prothrombin Time 15.1 Sec Prothrombin Time Ratio 1.2 INR International Normalized Ratio 1.18 Activated Partial Thromboplast Time 28.3 Sec Sodium Level 135 mmol/L Potassium Level 4.1 mmol/L Chloride Level 99 mmol/L Carbon Dioxide Level 29 mmol/L Anion Gap 7 Blood Urea Nitrogen 20 mg/dl Creatinine 1.02 mg/dl Est Glomerular Filtrat Rate mL/min mL/min Glucose Level 95 mg/dl Calcium Level 8.5 mg/dl Troponin I < 0.012 ng/ml Valproic Acid (Depakene) Level 120 ug/ml Bedside Glucose 91 mg/dL Current Medications Medications Dose Sig/Kevin Start Time Status Last (Trade) Ordered Route PRN Stop Time Admin Dose Reason Admin IV Flush 3 ml PER 03/04/19 (NS 3 ml) PROTOCOL IV 23:30 Ondansetron 4 mg Q6H PRN 03/04/19 HCl (Zofran IV 23:30 Inj) NAUSEA/VOMITI NG 650 mg Q6H PRN 03/04/19 Acetaminophen PO .PAIN 1-3 23:30 (Tylenol OR TEMP Tab) Docusate 100 mg Q12H PRN 03/04/19 Sodium PO 23:30 (Colace) .CONSTIPATION Bisacodyl 5 mg DAILY PRN 03/04/19 (Dulcolax) PO 23:30 .CONSTIPATION Procedures/[place] [id number] Radiology Main Line: [phone] DIAGNOSTIC IMAGING REPORT Patient: INOCENTE ESPOSITO : 1930 Age: 88 Sex: M MR #: [id number] DOS: 03/04/192126 Ordering MD: DORIAN BEAULIEU MD Location: E/R Room/Bed: PROCEDURE: CT Head without. CLINICAL INDICATION: Headache, head injury. TECHNIQUE: The study was performed utilizing a multi-slice, multidetector CT scanner. Direct spiral 1 mm axial sections were obtained through the head without the use of intravenous contrast material. 1 or more of the following dose reduction techniques were utilized: Automated exposure control, adjustment of the mA and/or kV according to patient's size, iterative reconstruction technique. Coronal and sagittal reformations were obtained. The images were reviewed on a PACS workstation. DICOM images are available. RADIATION DOSE: CTDIvol: 38.29 mGy mGy DLP: 634.23 mGy.cm mGy-cm COMPARISON: 10/30/2018 FINDINGS: There is no intracranial hemorrhage, extra-axial fluid collection, mass lesion, midline shift or hydrocephalus. There is mild to moderate prominence of the cerebral sulci, lateral and third ventricles. There is stable mild prominence of the extra-axial spaces overlying the bilateral frontal lobes with expected vessels traversing the subarachnoid space. No evidence of subdural hygroma or chronic subdural hemorrhage. There is mild to moderate patchy periventricular and subcortical white matter hypodensity. There is moderate arteriosclerotic calcification of the parasellar internal carotid arteries. The uriarte-white matter differentiation is preserved. The basal cisterns are patent. The midline structures are intact. There is moderate soft tissue swelling in the right supraorbital/frontal region without evidence of underlying calvarial fracture. The orbits are normal in appearance. The visualized paranasal sinuses, mastoid air cells and middle ear cavities are normally aerated. IMPRESSION: 1. No acute intracranial abnormality. No intracranial hemorrhage, extra-axial fluid collection, mass lesion or hydrocephalous. 2. Mild to moderate peripheral and central cerebral volume loss. 3. There is mild prominence of the extra-axial spaces overlying the bilateral frontal lobes with expected vessels traversing the subarachnoid space. No evidence of subdural hygroma or chronic subdural hemorrhage. 4. Interval resolution of the previously visualized left frontal and right parietal subarachnoid hemorrhage. 5. Moderate soft tissue swelling in the right supraorbital/frontal region without evidence of underlying calvarial fracture. 6. Moderate patchy. periventricular and subcortical white matter hypodensity, likely related to chronic microangiopathic changes. RPTAT: HGAS .Washington Knight MD, Date Time Electronically viewed and signed by .Washington Knight MD, MD on 03/04/2019 22:22 .S/ CC: DORIAN BEAULIEU MD [id number] Trop Pending MEDICAL MAKING DECISION: The patient is a 88-year-old male, presenting with acute syncope, acute Depakote toxicity. He remains stable emergency department Forehead wound is awaiting to be cleaned by the nurse at the time of dictation The differential diagnoses considered include but are not limited to arrhythmogenic right ventricular dysplasia, Brugada syndrome, left ventricular hypertrophy, pulmonary embolism, QT abnormality, [id number]. Departure Diagnosis: Primary Impression: Syncope Additional Impressions: Valproic acid toxicity Anemia Thrombocytopenia Condition: Stable Comments I discussed the findings with the patient. I discussed the patient with Dr Husain at 11:05 PM, who was made aware of the lab, the treatment, the patient condition. The patient is admitted to [facility] Disclaimer: Inadvertent spelling and grammatical errors are likely due to EHR/dictation software use and do not reflect on the overall quality of patient care. Also, please note that the electronic time recorded on this note does not necessarily reflect the actual time of the patient encounter. DORIAN BEAULIEU MD Mar 04, 2019 22:03
[2019-03-04] MEDS ORDERED: BISACODYL (EC) 5 MG TAB PO PRN (23:30)
[2019-03-04] MEDS ORDERED: NACL 0.9% 3 ML SYG IV SCH (23:30)
[2019-03-04] MEDS ORDERED: ONDANSETRON 4 MG INJ IV PRN (23:30)
[2019-03-04] MEDS ORDERED: DOCUSATE SODIUM 100 MG CAP PO PRN (23:30)
[2019-03-05] VITALS (8 sets, daily range): BP systolic 118–158; BP diastolic 61–79; PULSE 57–85; RESP 18–20; Ht 165.1 cm; Wt 60.0 kg
[2019-03-05] MEDS ORDERED: CLOP75TA28 PO (00:13)
[2019-03-05] MEDS ORDERED: MEG40/1 PO (00:13)
[2019-03-05] MEDS ORDERED: METO-448 PO (00:13)
[2019-03-05] MEDS ORDERED: LISI-313 PO (00:13)
--- NOTE | 2019-03-05 07:34 | HP ---
Date/Time of Note Date/Time of Note DATE: 03/05/19 TIME: 07:24 Assessment/Plan VTE Prophylaxis SCD applied (from Nsg): Yes Pharmacological prophylaxis: NA/contraindicated Pharm contraindication: low risk/ambulating Lines/Catheters IV Catheter Type (from Nrsg): Saline Lock Assessment/Plan Hospital Course This is a 88-year-old male being admitted to the telemetry floor for: 1 syncope: Likely secondary to bradycardia, will also assess for orthostatic hypotension. Echocardiogram done in October did show an ejection fraction of 65%. We will monitor the patient on telemetry. Will discontinue beta-kailey. Consult cardiology . 2 scalp lacerations: Wound care consult. We will give the patient 2 units of platelets given that he has thrombocytopenia. 3 history of subarachnoid hemorrhage: Patient CT scan does not show any acute abnormalities and shows resolution of previous hemorrhage. 4. Mild to moderate dementia Per family patient has been exhibiting signs of dementia with loss of short-term memory 5. Atherosclerotic vascular disease: Continue statin, hold aspirin, Plavix given bleed and likely will need to discontinue this long-term given his frequent falls and history of subarachnoid hemmorhage. 6. Repeated falls: PT evaluation. Will need to evaluate will need to monitor patient's blood pressures as well as bradycardia closely and discontinue medications as indicated. 7. History of partial gastrectomy: No acute issues 8. Hypertension: DC metoprolol as patient does become bradycardic, will allow for systolic blood pressure up to 150 due to patient's repeated falls and age 8. H/o Bioplar disorder as per history 9. History of coronary disease status post stent placement: Continue statin, hold aspirin and plavix secondary to intracranial hemorrhage, DC metoprolol as patient is bradycardic with falls 10. thrombocytopenia: etiology unknown, will give 2 units platelets given scalp laceration.' 11: dvt and gi prophylaxis: scds, no gi prophylaxis indicated further treatment will be implemented as per the clinical course. Result Diagram: 03/05/1953203/05/19532 Results 24hrs Laboratory Tests Test 03/04/19 22:11 03/04/19 22:15 03/05/19 05:33 White Blood Count 5.2 # 5.1 Red Blood Count 3.47 L 3.47 L Hemoglobin 11.5 L 11.4 L Hematocrit 34.8 L 34.8 L Mean Corpuscular Volume 100.3 100.3 Mean Corpuscular Hemoglobin 33.1 H 32.9 Mean Corpuscular Hemoglobin Concent 33.0 32.8 Red Cell Distribution Width 15.2 H 15.0 H Platelet Count 60 #L 49 L Mean Platelet Volume 11.1 H 9.8 Immature Granulocytes % 1.100 H 0.600 H Neutrophils % 40.6 Segmented Neutrophils % (Manual) 40 Band Neutrophils % (Manual) 4 Lymphocytes % 41.8 Lymphocytes % (Manual) 40 Monocytes % 16.4 H Monocytes % (Manual) 16 H Eosinophils % 0.4 Basophils % 0.2 Nucleated Red Blood Cells % 0.0 0.0 Immature Granulocytes # 0.060 H 0.030 Neutrophils # 2.1 Neutrophils # (Manual) 2.1 Band Neutrophils # 0.2 Lymphocytes (Manual) 2.0 Lymphocytes # 2.1 Monocytes # 0.8 Monocytes # (Manual) 0.8 Eosinophils # 0.0 Basophils # 0.0 Nucleated Red Blood Cells # 0.0 Platelet Estimate DECREASED Giant Platelets 1 H Poikilocytosis 2+ Anisocytosis 1+ Prothrombin Time 15.1 H Prothrombin Time Ratio 1.2 INR International Normalized Ratio 1.18 Activated Partial Thromboplast Time 28.3 Sodium Level 135 139 Potassium Level 4.1 4.3 Chloride Level 99 103 Carbon Dioxide Level 29 28 Anion Gap 7 8 Blood Urea Nitrogen 20 18 Creatinine 1.02 0.93 Est Glomerular Filtrat Rate mL/min Glucose Level 95 74 Calcium Level 8.5 8.4 Troponin I < 0.012 Valproic Acid (Depakene) Level 120 H 94 Bedside Glucose 91 Hemoglobin A1c 4.7 Total Bilirubin 0.6 Direct Bilirubin 0.00 Indirect Bilirubin 0.6 Aspartate Amino Transf (AST/SGOT) 24 Alanine Aminotransferase (ALT/SGPT) 16 Alkaline Phosphatase 56 Total Protein 5.6 L Albumin 2.7 L Globulin 2.90 Albumin/Globulin Ratio 0.93 Triglycerides Level 76 Cholesterol Level 104 LDL Cholesterol, Calculated 56 HDL Cholesterol 33 Cholesterol/HDL Ratio 3.1 Thyroid Stimulating Hormone (TSH) 2.460 HPI/ROS Admit Date/Time Admit Date/Time Hx of Present Illness Chief complaint: Repeated falls, syncopal episode History was obtained from the ED physician, patient is a poor historian, also has dementia The patient is a 88-year-old male, presenting to the ER because he had a syncopal episode this morning around 5 AM according to the daughter. Patient though himself denies falling or fainting. Daughter reported to the emergency doctor that he has frequent falls at home. He also apparently is still taking Plavix. 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 He denied any chest pain. On his med recon it does appear that he is on metoprolol which from review of his previous discharge he was advised to stop taking this. We will need to confirm with his daughter in the a.m. regarding the meds he is taking at home. He does have bilateral lacerations of the scalp that are bleeding, they have been cleaned and have the gauze placed on them. Allergies: NKDA medications: Need to confirm with family if he is taking the meds that are on the home med rec Plavix Depakote Lisinopril Megace Metoprolol ROS Const: As per HPI Eyes : No pain discharge or redness or change in visual acuity ENT: No pain, sore throat, congestion, congestion, dysphagia or discharge Respiratory: No shortness of breath, cough, sputum, wheezing, or pleuritic pain Cardiovascular: No chest pain, palpitation, PND, or edema GI : no change in appetite, abdominal pain, nausea, vomiting, diarrhea, constipation, or change in the color his stool Genitourinary: No dysuria, hematuria, flank pain , discharge or CVA tenderness Musculoskeletal: No joint pain, back pain, neck pain, restricted range of motion in neck or joints Skin: As per HPI Neuro: No headache, dizziness, syncope, seizure, focal weakness Endocrine: No polyuria, polydipsia, temperature intolerance Psych: No hallucination, depression, anxiety or suicidal ideation PMH/Family/Social Past Medical History Seizure disorder, hypertension, bipolar, CAD, history of subarachnoid hemorrhage, GERD, dyslipidemia, dementia, frequent falls Medications Current Medications IV Flush (NS 3 ml) 3 ml PER PROTOCOL IV ; Start 03/04/19 at 23:30 Ondansetron HCl (Zofran Inj) 4 mg Q6H PRN IV NAUSEA/VOMITING; Start 03/04/19 at 23:30 Acetaminophen (Tylenol Tab) 650 mg Q6H PRN PO .PAIN 1-3 OR TEMP; Start 03/04/19 at 23:30 Docusate Sodium (Colace) 100 mg Q12H PRN PO .CONSTIPATION; Start 03/04/19 at 23:30 Bisacodyl (Dulcolax) 5 mg DAILY PRN PO .CONSTIPATION; Start 03/04/19 at 23:30 Coded Allergies: No Known Allergies (Verified Allergy, Mild, 03/05/19) Past Surgical History Stent PCI, partial gastrectomy Family History Significant Family History: no pertinent family hx Social History Alcohol Use: none Smoking Status: Never smoker Drug Use: none Exam/Review of Systems Vital Signs Vitals Vital Signs Date Temp Pulse Resp B/P (MAP) Pulse Ox O2 O2 Flow FiO2 Time Delivery Rate 03/05/19 51 16 120/56 100 Room Air 05:03 (77) 03/05/19 98.2 02:00 Exam Exam General: patient is a pleasant male currently lying in bed in no acute distress he denies any headache HEENT: Bilateral scalp lacerations, with dried bleeding, currently covered in gauze. Was cleaned with normal saline in the ER. Neck: Supple with full range of motion. No rigidity or meningismus Chest: Nontender Lungs: Clear to auscultation bilaterally no crackles rales or wheezing Heart: Sinus bradycardia Abdomen: Soft , nontender, nondistended , bowel sounds are present. No guarding no rebound tenderness , No masses or organomegaly. 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 CLINICAL INDICATION: Headache, head injury. TECHNIQUE: The study was performed utilizing a multi-slice, multidetector CT scanner. Direct spiral 1 mm axial sections were obtained through the head without the use of intravenous contrast material. 1 or more of the following dose reduction techniques were utilized: Automated exposure control, adjustment of the mA and/or kV according to patient's size, iterative reconstruction technique. Coronal and sagittal reformations were obtained. The images were reviewed on a PACS workstation. DICOM images are available. RADIATION DOSE: CTDIvol: 38.29 mGy mGy DLP: 634.23 mGy.cm mGy-cm COMPARISON: 10/30/2018 FINDINGS: There is no intracranial hemorrhage, extra-axial fluid collection, mass lesion, midline shift or hydrocephalus. There is mild to moderate prominence of the cerebral sulci, lateral and third ventricles. There is stable mild prominence of the extra-axial spaces overlying the bilateral frontal lobes with expected vessels traversing the subarachnoid space. No evidence of subdural hygroma or chronic subdural hemorrhage. There is mild to moderate patchy periventricular and subcortical white matter hypodensity. There is moderate arteriosclerotic calcification of the parasellar internal carotid arteries. The uriarte-white matter differentiation is preserved. The basal cisterns are patent. The midline structures are intact. There is moderate soft tissue swelling in the right supraorbital/frontal region without evidence of underlying calvarial fracture. The orbits are normal in appearance. The visualized paranasal sinuses, mastoid air cells and middle ear cavities are normally aerated. IMPRESSION: 1. No acute intracranial abnormality. No intracranial hemorrhage, extra-axial fluid collection, mass lesion or hydrocephalous. 2. Mild to moderate peripheral and central cerebral volume loss. 3. There is mild prominence of the extra-axial spaces overlying the bilateral frontal lobes with expected vessels traversing the subarachnoid space. No evidence of subdural hygroma or chronic subdural hemorrhage. 4. Interval resolution of the previously visualized left frontal and right parietal subarachnoid hemorrhage. 5. Moderate soft tissue swelling in the right supraorbital/frontal region without evidence of underlying calvarial fracture. 6. Moderate patchy. periventricular and subcortical white matter hypodensity, likely related to chronic microangiopathic changes. RPTAT: HGAS .Washington Knight MD, Date Time Electronically viewed and signed by .Washington Knight MD, on 03/04/2019 2 2:22 .S/ CC: MITCH BEAULIEU MD [phone] Normal left ventricular systolic function. Normal left ventricular cavity size. Normal left ventricular wall thickness. Ejection fraction is visually estimated at 65 %. Tissue Doppler/Mitral Doppler indices are consistent with impaired relaxation (Stage I diastolic dysfunction). Normal right ventricular size. Normal right ventricular systolic function. The left atrium is normal in size. The right atrium is normal in size. No significant valvular stenosis or regurgitation seen. Normal pericardium with no significant pericardial effusion. Electronically Signed By: Mitch Hwang 2018-10-30 15:08:25 APRIL [place] Mar 05, 2019 07:34
[2019-03-05] MEDS ORDERED: SOD CHLORIDE 0.9% 250 ML IV* ONE (10:11)
--- NOTE | 2019-03-05 15:41 | PN ---
Date/Time of Note Date/Time of Note DATE: 03/05/19 TIME: 15:38 Assessment/Plan VTE Prophylaxis SCD applied (from Nsg): Yes Pharmacological prophylaxis: NA/contraindicated Pharm contraindication: bleeding Lines/Catheters IV Catheter Type (from Nrsg): Saline Lock Assessment/Plan Hospital Course 1. Syncope Etiology possible secondary bradycardia versus orthostatic hypotension Recent echo showed EF 65% Continue beta-kailey Follow-up on cardiology recommendations 2. Scalp laceration Wound care consult Status post 2 units of platelets given thrombocytopenia 3. History of subarachnoid hemorrhage CT scan does not show any acute abnormalities shows resolution of previous hemorrhage 4. Mild to moderate dementia Per family patient has been exhibiting signs of dementia with loss of short-term memory Patient resides in [facility] and care 5. Peripheral vascular disease Continue statin, hold aspirin, Plavix given bleed and likely will need to discontinue this long-term given his frequent falls and history of intrarenal hemorrhage. 6. Repeated falls PT evaluation. Will need to evaluate will need to monitor patient's blood pressures as well as bradycardia closely and discontinue medications as indicated. 7. History of partial gastrectomy: No acute issues 8. Hypertension: DC metoprolol as patient does become bradycardic, will allow for systolic blood pressure up to 150 due to patient's repeated falls and age 8. H/o Bioplar disorder as per history 9. History of coronary disease status post stent placement Continue statin, hold aspirin secondary to intracranial hemorrhage, DC metopro lol as patient is bradycardic with falls Prophylaxis: SCDs Result Diagram: 03/05/19 0533 03/05/19 0533 Results 24hrs Laboratory Tests Test 03/04/19 22:11 03/04/19 22:15 03/05/19 05:33 White Blood Count 5.2 # 5.1 Red Blood Count 3.47 L 3.47 L Hemoglobin 11.5 L 11.4 L Hematocrit 34.8 L 34.8 L Mean Corpuscular Volume 100.3 100.3 Mean Corpuscular Hemoglobin 33.1 H 32.9 Mean Corpuscular Hemoglobin Concent 33.0 32.8 Red Cell Distribution Width 15.2 H 15.0 H Platelet Count 60 #L 49 L Mean Platelet Volume 11.1 H 9.8 Immature Granulocytes % 1.100 H 0.600 H Neutrophils % 40.6 Segmented Neutrophils % (Manual) 40 Band Neutrophils % (Manual) 4 Lymphocytes % 41.8 Lymphocytes % (Manual) 40 Monocytes % 16.4 H Monocytes % (Manual) 16 H Eosinophils % 0.4 Basophils % 0.2 Nucleated Red Blood Cells % 0.0 0.0 Immature Granulocytes # 0.060 H 0.030 Neutrophils # 2.1 Neutrophils # (Manual) 2.1 Band Neutrophils # 0.2 Lymphocytes (Manual) 2.0 Lymphocytes # 2.1 Monocytes # 0.8 Monocytes # (Manual) 0.8 Eosinophils # 0.0 Basophils # 0.0 Nucleated Red Blood Cells # 0.0 Platelet Estimate DECREASED Giant Platelets 1 H Poikilocytosis 2+ Anisocytosis 1+ Prothrombin Time 15.1 H Prothrombin Time Ratio 1.2 INR International Normalized Ratio 1.18 Activated Partial Thromboplast Time 28.3 Sodium Level 135 139 Potassium Level 4.1 4.3 Chloride Level 99 103 Carbon Dioxide Level 29 28 Anion Gap 7 8 Blood Urea Nitrogen 20 18 Creatinine 1.02 0.93 Est Glomerular Filtrat Rate mL/min Glucose Level 95 74 Calcium Level 8.5 8.4 Troponin I < 0.012 Valproic Acid (Depakene) Level 120 H 94 Bedside Glucose 91 Hemoglobin A1c 4.7 Total Bilirubin 0.6 Direct Bilirubin 0.00 Indirect Bilirubin 0.6 Aspartate Amino Transf (AST/SGOT) 24 Alanine Aminotransferase (ALT/SGPT) 16 Alkaline Phosphatase 56 Total Protein 5.6 L Albumin 2.7 L Globulin 2.90 Albumin/Globulin Ratio 0.93 Triglycerides Level 76 Cholesterol Level 104 LDL Cholesterol, Calculated 56 HDL Cholesterol 33 Cholesterol/HDL Ratio 3.1 Thyroid Stimulating Hormone (TSH) 2.460 Subjective 24 Hr Interval Summary Constitutional: disoriented Exam/Review of Systems Exam Vitals Vital Signs Date Temp Pulse Resp B/P (MAP) Pulse Ox O2 O2 Flow FiO2 Time Delivery Rate 03/05/19 77 20 158/74 98 Room Air 15:30 (102) 03/05/19 97.8 15:21 Psych: confusion Respiratory: clear to auscultation Cardiovascular: regular rate and rhythm Gastrointestinal: soft; No distended Musculoskeletal: nl extremities to inspection Results Results 24hrs Laboratory Tests Test 03/04/19 22:11 03/04/19 22:15 03/05/19 05:33 White Blood Count 5.2 # 5.1 Red Blood Count 3.47 L 3.47 L Hemoglobin 11.5 L 11.4 L Hematocrit 34.8 L 34.8 L Mean Corpuscular Volume 100.3 100.3 Mean Corpuscular Hemoglobin 33.1 H 32.9 Mean Corpuscular Hemoglobin Concent 33.0 32.8 Red Cell Distribution Width 15.2 H 15.0 H Platelet Count 60 #L 49 L Mean Platelet Volume 11.1 H 9.8 Immature Granulocytes % 1.100 H 0.600 H Neutrophils % 40.6 Segmented Neutrophils % (Manual) 40 Band Neutrophils % (Manual) 4 Lymphocytes % 41.8 Lymphocytes % (Manual) 40 Monocytes % 16.4 H Monocytes % (Manual) 16 H Eosinophils % 0.4 Basophils % 0.2 Nucleated Red Blood Cells % 0.0 0.0 Immature Granulocytes # 0.060 H 0.030 Neutrophils # 2.1 Neutrophils # (Manual) 2.1 Band Neutrophils # 0.2 Lymphocytes (Manual) 2.0 Lymphocytes # 2.1 Monocytes # 0.8 Monocytes # (Manual) 0.8 Eosinophils # 0.0 Basophils # 0.0 Nucleated Red Blood Cells # 0.0 Platelet Estimate DECREASED Giant Platelets 1 H Poikilocytosis 2+ Anisocytosis 1+ Prothrombin Time 15.1 H Prothrombin Time Ratio 1.2 INR International Normalized Ratio 1.18 Activated Partial Thromboplast Time 28.3 Sodium Level 135 139 Potassium Level 4.1 4.3 Chloride Level 99 103 Carbon Dioxide Level 29 28 Anion Gap 7 8 Blood Urea Nitrogen 20 18 Creatinine 1.02 0.93 Est Glomerular Filtrat Rate mL/min Glucose Level 95 74 Calcium Level 8.5 8.4 Troponin I < 0.012 Valproic Acid (Depakene) Level 120 H 94 Bedside Glucose 91 Hemoglobin A1c 4.7 Total Bilirubin 0.6 Direct Bilirubin 0.00 Indirect Bilirubin 0.6 Aspartate Amino Transf (AST/SGOT) 24 Alanine Aminotransferase (ALT/SGPT) 16 Alkaline Phosphatase 56 Total Protein 5.6 L Albumin 2.7 L Globulin 2.90 Albumin/Globulin Ratio 0.93 Triglycerides Level 76 Cholesterol Level 104 LDL Cholesterol, Calculated 56 HDL Cholesterol 33 Cholesterol/HDL Ratio 3.1 Thyroid Stimulating Hormone (TSH) 2.460 Medications Medication Current Medications IV Flush (NS 3 ml) 3 ml PER PROTOCOL IV ; Start 03/04/19 at 23:30 Ondansetron HCl (Zofran Inj) 4 mg Q6H PRN IV NAUSEA/VOMITING; Start 03/04/19 at 23:30 Acetaminophen (Tylenol Tab) 650 mg Q6H PRN PO .PAIN 1-3 OR TEMP; Start 03/04/19 at 23:30 Docusate Sodium (Colace) 100 mg Q12H PRN PO .CONSTIPATION; Start 03/04/19 at 23:30 Bisacodyl (Dulcolax) 5 mg DAILY PRN PO .CONSTIPATION; Start 03/04/19 at 23:30 MAURA FOX Mar 05, 2019 15:41
--- NOTE | 2019-03-05 17:36 | CONS ---
Assessment/Plan Assessment/Plan Hospital Course (Demo Recall) Recurrent falls CAD with history of PCI April 2018 Preserved left ventricular ejection fraction History of traumatic subarachnoid hemorrhage Preserved left ejection fraction echocardiogram October 2018 Abdominal aortic aneurysm status post repair Patient with recurrent falls, patient complains of loss of balance. Denies chest pain, palpitations or dizziness prior to these episodes. Discussion with daughter and over the phone, patient has not been compliant with requesting assistance with ambulating has unsteady gait Patient with numerous areas of ecchymosis and lacerations on his head. He did have PCI in 2018 which was done prior to abdominal aneurysm repair. We are approximately 11 months post PCI, I think the risks of antiplatelet therapy outweigh the benefits, especially given also patient with recent sub-arachnoid hemorrhage which was traumatic. I would hold Plavix at the current time Patient's heart rate on telemetry also in the 40s to 50s. He is currently on metoprolol. I did discuss with the patient's daughter, this has been held in the past but restarted by primary care physician. I would hold at the current time as well. Continue telemetry monitoring Consultation Date/Type/Reason Admit Date/Time Type of Consult Cardiology Reason for Consultation Fall Date/Time of Note DATE: 03/05/19 TIME: 17:29 Hx of Present Illness This is an 88-year-old male with past medical history of coronary artery disease status post PCI in April 2018, abdominal aortic aneurysm status post repair, hypertension and frequent falls who presents with another fall. As per the patient, patient was getting up and walking and lost his balance and fell. He denies any chest pain, shortness of breath pop or palpitations. He denies any loss of consciousness. In discussion with the daughter, patient unfortunately is not steady on his feet and has frequent falls. He has not been compliant with getting up with assistance. This episode of fall was done with no one at home. Patient denies any chest pain, shortness of breath or palpitations. 12 point review of systems was performed with all pertinent positives and negatives mentioned above and all else is negative Past Medical History Subarachnoid hemorrhage Seizure Medical History: coronary artery disease, hypertension Home Meds Reported Medications Lisinopril* (Lisinopril*) 5 Mg Tablet, 5 MG PO DAILY for 90 Days, #90 03/05/19 Clopidogrel Bisulfate (Clopidogrel) 75 Mg Tablet, 75 MG PO DAILY for 90 Days, #90 03/05/19 Metoprolol Tartrate* (Lopressor*) 25 Mg Tab, 25 MG PO BID for 30 Days, #60 03/05/19 Megestrol Acetate* (Megestrol Acetate*) 400 Mg/10 Ml Susp, 400 MG PO BID, ML 03/05/19 Divalproex Sodium* (Depakote*) 500 Mg Tablet.dr, 500 MG PO TID, #90 TAB 10/29/18 Discontinued Reported Medications Temazepam* (Temazepam*) 30 Mg Capsule, 30 MG PO HS PRN for INSOMNIA, CAP 10/29/18 Simvastatin* (Zocor*) 40 Mg Tablet, 40 MG PO QHS, #30 TAB 10/29/18 Potassium Chloride* (K-Dur*) 10 Meq Tab.prt.sr, 10 MEQ PO DAILY, TAB 10/29/18 Esomeprazole Mag Trihydrate (Nexium) 40 Mg Capsule.dr, 40 MG PO DAILY, #30 CAP 10/29/18 Medications Current Medications IV Flush (NS 3 ml) 3 ml PER PROTOCOL IV ; Start 03/04/19 at 23:30 Ondansetron HCl (Zofran Inj) 4 mg Q6H PRN IV NAUSEA/VOMITING; Start 03/04/19 at 23:30 Acetaminophen (Tylenol Tab) 650 mg Q6H PRN PO .PAIN 1-3 OR TEMP; Start 03/04/19 at 23:30 Docusate Sodium (Colace) 100 mg Q12H PRN PO .CONSTIPATION; Start 03/04/19 at 23:30 Bisacodyl (Dulcolax) 5 mg DAILY PRN PO .CONSTIPATION; Start 03/04/19 at 23:30 Allergies: Coded Allergies: No Known Allergies (Verified Allergy, Mild, 03/05/19) Past Surgical History Past Surgical Hx: angioplasty, other (AAA repair) Social History Alcohol Use: none Smoking Status: Former smoker Drug Use: none Exam/Review of Systems Vital Signs Vitals Vital Signs Date Temp Pulse Resp B/P (MAP) Pulse Ox O2 O2 Flow FiO2 Time Delivery Rate 03/05/19 57 16:35 03/05/19 20 158/74 98 Room Air 15:30 (102) 03/05/19 97.8 15:21 Exam Constitutional: alert (Follows commands, becomes disoriented at times, no apparent distress), frail Head: lacerations, other (Ecchymosis) Respiratory: other (Coarse breath sounds bilaterally, no wheezing) Cardiovascular: regular rate and rhythm (S1-S2 heard) Gastrointestinal: soft, non-tender, bowel sounds Extremities: other (No significant edema) Labs Result Diagram: 03/05/19 0533 03/05/19 0533 Results 24hrs Laboratory Tests Test 03/04/19 22:11 03/04/19 22:15 03/05/19 05:33 White Blood Count 5.2 # 5.1 Red Blood Count 3.47 L 3.47 L Hemoglobin 11.5 L 11.4 L Hematocrit 34.8 L 34.8 L Mean Corpuscular Volume 100.3 100.3 Mean Corpuscular Hemoglobin 33.1 H 32.9 Mean Corpuscular Hemoglobin Concent 33.0 32.8 Red Cell Distribution Width 15.2 H 15.0 H Platelet Count 60 #L 49 L Mean Platelet Volume 11.1 H 9.8 Immature Granulocytes % 1.100 H 0.600 H Neutrophils % 40.6 Segmented Neutrophils % (Manual) 40 Band Neutrophils % (Manual) 4 Lymphocytes % 41.8 Lymphocytes % (Manual) 40 Monocytes % 16.4 H Monocytes % (Manual) 16 H Eosinophils % 0.4 Basophils % 0.2 Nucleated Red Blood Cells % 0.0 0.0 Immature Granulocytes # 0.060 H 0.030 Neutrophils # 2.1 Neutrophils # (Manual) 2.1 Band Neutrophils # 0.2 Lymphocytes (Manual) 2.0 Lymphocytes # 2.1 Monocytes # 0.8 Monocytes # (Manual) 0.8 Eosinophils # 0.0 Basophils # 0.0 Nucleated Red Blood Cells # 0.0 Platelet Estimate DECREASED Giant Platelets 1 H Poikilocytosis 2+ Anisocytosis 1+ Prothrombin Time 15.1 H Prothrombin Time Ratio 1.2 INR International Normalized Ratio 1.18 Activated Partial Thromboplast Time 28.3 Sodium Level 135 139 Potassium Level 4.1 4.3 Chloride Level 99 103 Carbon Dioxide Level 29 28 Anion Gap 7 8 Blood Urea Nitrogen 20 18 Creatinine 1.02 0.93 Est Glomerular Filtrat Rate mL/min Glucose Level 95 74 Calcium Level 8.5 8.4 Troponin I < 0.012 Valproic Acid (Depakene) Level 120 H 94 Bedside Glucose 91 Hemoglobin A1c 4.7 Total Bilirubin 0.6 Direct Bilirubin 0.00 Indirect Bilirubin 0.6 Aspartate Amino Transf (AST/SGOT) 24 Alanine Aminotransferase (ALT/SGPT) 16 Alkaline Phosphatase 56 Total Protein 5.6 L Albumin 2.7 L Globulin 2.90 Albumin/Globulin Ratio 0.93 Triglycerides Level 76 Cholesterol Level 104 LDL Cholesterol, Calculated 56 HDL Cholesterol 33 Cholesterol/HDL Ratio 3.1 Thyroid Stimulating Hormone (TSH) 2.460 Imaging Imaging ECG sinus bradycardia at 49 bpm, QRS 82 ms, nonspecific ST abnormalities Medications Medications Current Medications IV Flush (NS 3 ml) 3 ml PER PROTOCOL IV ; Start 03/04/19 at 23:30 Ondansetron HCl (Zofran Inj) 4 mg Q6H PRN IV NAUSEA/VOMITING; Start 03/04/19 at 23:30 Acetaminophen (Tylenol Tab) 650 mg Q6H PRN PO .PAIN 1-3 OR TEMP; Start 03/04/19 at 23:30 Docusate Sodium (Colace) 100 mg Q12H PRN PO .CONSTIPATION; Start 03/04/19 at 23:30 Bisacodyl (Dulcolax) 5 mg DAILY PRN PO .CONSTIPATION; Start 03/04/19 at 23:30 Mitch Hwang DO Mar 05, 2019 17:36
--- NOTE | 2019-03-05 18:27 | RADRPT ---
Echocardiogram Report Patient Name: INOCENTE ESPOSITOPatient ID: [id number] : 1930 ([id number] )Study Date: 03/05/2019 8:35:13 AM Gender: MAccession #: [id number] Tech: TYRA Location: [facility] Ref.Physician: APRIL WALSH Height(Cm): BSA: Weight(Kg): Quality: LimitedOrder Physician: APRIL WALSH Account #: Procedures: Echocardiographic Report: Transthoracic echocardiogram with complete 2D, M-Mode, and doppler examination. Indications: Syncope. Measurements: 2D/M Mode Doppler Measurement Value Normal Range Measurement Value Normal Range IVC Diam 1.6 [ 1.2 - 2.0 ] sec AV Peak Elliott 0.8 [ 100.0 - 170.0 ] cm/sec AV Peak PG 3.0 [ 2.0 - 9.0 ] mmHg LVOT Peak Elliott 0.8 [ 70.0 - 110.0 ] cm/sec LVOT Peak PG 2.0 [ 2.0 - 6.0 ] mmHg MV E Peak Elliott 0.5 [ 60.0 - 130.0 ] cm/sec MV A Peak Elliott 0.7 [ 100.0 - 120.0 ] cm/sec MV E/A 0.7 [ 0.8 - 1.5 ] ratio MV Decel Time 290 [ 104 - 258 ] msec MV E/A 0.7 [ 0.8 - 1.5 ] ratio Findings: Left Ventricle: Overall, normal left ventricular systolic function. Not all segments visualized. Left ventricle not well visualized. Ejection fraction is visually estimated at 55 %. Right Ventricle: Normal right ventricular systolic function. Not well visualized. Left Atrium: The left atrium is normal in size. Right Atrium: The right atrium is normal in size. Ventricular septum: Normal/intact ventricular septum. Mitral Valve: Mitral valve is not well visualized. Aortic Valve: Aortic valve not well visualized. Tricuspid Valve: Tricuspid valve not well visualized. Pulmonic Valve: Pulmonic valve not well visualized. Pericardium: Normal pericardium with no significant pericardial effusion. Aorta: Not well visualized. IVC: Normal size and no respiratory collapse consistent with elevated right atrial pressure. Conclusions: Overall, normal left ventricular systolic function. Not all segments visualized. Left ventricle not well visualized. Ejection fraction is visually estimated at 55 %. Limited study with poor accoustic windows. Electronically Signed By: Mitch Hwang 2019-03-05 18:26:59 PDT
[2019-03-06] VITALS (14 sets, daily range): BP systolic 135–154; BP diastolic 63–78; PULSE 60–86; RESP 18–19
--- NOTE | 2019-03-06 14:34 | CONS ---
Assessment/Plan Assessment/Plan Assessment/Plan (Daily) Recurrent falls CAD with history of PCI April 2018 Preserved left ventricular ejection fraction History of traumatic subarachnoid hemorrhage Preserved left ejection fraction echocardiogram October 2018 Abdominal aortic aneurysm status post repair Patient with recurrent falls, patient complains of loss of balance. Denies chest pain, palpitations or dizziness prior to these episodes. Patient with numerous areas of ecchymosis and lacerations on his head. He did have PCI in 2018 which was done prior to abdominal aneurysm repair. We are approximately 11 months post PCI, I think the risks of antiplatelet therapy outweigh the benefits, especially given also patient with recent sub-arachnoid hemorrhage which was traumatic. I would hold Plavix at the current time Patient's heart rate on telemetry also in the 40s to 50s. He is currently on metoprolol. I would hold at the current time as well. Continue telemetry monitoring Consultation Date/Type/Reason Admit Date/Time Mar 06, 2019 at 11:40 Initial Consult Date Type of Consult Cardiology Date/Time of Note DATE: 03/06/19 TIME: 14:33 24 HR Interval Summary Free Text/Dictation the apteint stable Exam/Review of Systems Vital Signs Vitals Vital Signs Date Temp Pulse Resp B/P (MAP) Pulse Ox O2 O2 Flow FiO2 Time Delivery Rate 03/06/19 68 12:20 03/06/19 148/78 11:30 (101) 03/06/19 98.8 18 96 11:28 03/05/19 Room Air 15:30 Intake and Output 03/05/19 03/05/19 03/06/19 1515:00 23:00 07:00 IntakeIntake Total 540 ml 50 ml OutputOutput Total 200 ml 300 ml BalanceBalance 340 ml -250 ml Labs Result Diagram: 03/05/19 0533 03/05/19 0533 Results 24hrs Laboratory Tests Test 03/06/19 05:11 Lab Scanned Report BLOOD TRANSFUSION Medications Medications Current Medications IV Flush (NS 3 ml) 3 ml PER PROTOCOL IV ; Start 03/04/19 at 23:30 Ondansetron HCl (Zofran Inj) 4 mg Q6H PRN IV NAUSEA/VOMITING; Start 03/04/19 at 23:30 Acetaminophen (Tylenol Tab) 650 mg Q6H PRN PO .PAIN 1-3 OR TEMP; Start 03/04/19 at 23:30 Docusate Sodium (Colace) 100 mg Q12H PRN PO .CONSTIPATION; Start 03/04/19 at 23:30 Bisacodyl (Dulcolax) 5 mg DAILY PRN PO .CONSTIPATION; Start 03/04/19 at 23:30 Neomycin/ Polymyxin/ Bacitracin (Neosporin Topical Oint) 1 applic BID TOP ; Start 03/06/19 at 12:30 PRAVIN VALENCIA MD Mar 06, 2019 14:34
--- NOTE | 2019-03-06 14:58 | PN ---
Date/Time of Note Date/Time of Note DATE: 03/06/19 TIME: 14:54 Assessment/Plan VTE Pro[place]axis [place] [facility] [place] risk: 5 SCD applied [place] [facility] Yes Pharmacological prophylaxis: NA/contraindicated Pharm contraindication: bleeding Lines/Catheters IV [facility]ter Type (from [facility] Saline Lock Urinary Cath still in place: No Assessment/Plan Hospital Course 1. Syncope Etiology possible secondary to bradycardia versus orthostatic hypotension Recent echo showed EF 65% Have discontinued beta-kailey and CODY inhibitor Cardiology consultation appreciated 2. Scalp laceration Wound care consult Status post 2 units of platelets given thrombocytopenia 3. History of subarachnoid hemorrhage CT scan does not show any acute abnormalities shows resolution of previous hemorrhage 4. Mild to moderate dementia Per family patient has been exhibiting signs of dementia with loss of short-term memory Patient resides in board and care 5. Peripheral vascular disease Continue statin, hold aspirin, Plavix given bleed and likely will need to discontinue this long-term given his frequent falls and history of subarachnoid hemorrhage 6. Repeated falls PT and OT evaluation Patient comes from home and lives with a caregiver but may require senior living facility, complex case manager aware 7. History of partial gastrectomy: No acute issues 8. Hypertension: DC metoprolol and CODY inhibitor as patient does become bradycardic, will allow for systolic blood pressure up to 150 due to patient's repeated falls and age 8. H/o Bioplar disorder as per history 9. History of coronary disease status post stent placement Continue statin, hold aspirin Plavix secondary to intracranial hemorrhage, DC metoprolol as patient is bradycardic with falls Cardiology consultation appreciated Prophylaxis: SCDs DC planning: Follow-up with PT and OT recommendations, patient may require prison placement, complex case manager aware Result Diagram: 03/05/1933 03/05/19 0533 Results 24hrs Laboratory Tests Test 03/06/19 05:11 Lab Scanned Report BLOOD TRANSFUSION Subjective 24 Hr Interval Summary Constitutional: disoriented Exam/Review of Systems Exam Vitals Vital Signs Date Temp Pulse Resp B/P (MAP) Pulse Ox O2 O2 Flow FiO2 Time Delivery Rate 03/06/19 68 12:20 03/06/19 148/78 11:30 (101) 03/06/19 98.8 18 96 11:28 03/05/19 Room Air 15:30 Intake and Output 03/05/19 03/05/19 03/06/19 1515:00 23:00 07:00 IntakeIntake Total 540 ml 50 ml OutputOutput Total 200 ml 300 ml BalanceBalance 340 ml -250 ml Psych: confusion Respiratory: clear to auscultation Cardiovascular: regular rate and rhythm Gastrointestinal: soft; No distended Musculoskeletal: nl extremities to inspection Results Results 24hrs Laboratory Tests Test 03/06/19 05:11 Lab Scanned Report BLOOD TRANSFUSION Medications Medication Current Medications IV Flush (NS 3 ml) 3 ml PER PROTOCOL IV ; Start 03/04/19 at 23:30 Ondansetron HCl (Zofran Inj) 4 mg Q6H PRN IV NAUSEA/VOMITING; Start 03/04/19 at 23:30 Acetaminophen (Tylenol Tab) 650 mg Q6H PRN PO .PAIN 1-3 OR TEMP; Start 03/04/19 at 23:30 Docusate Sodium (Colace) 100 mg Q12H PRN PO .CONSTIPATION; Start 03/04/19 at 23:30 Bisacodyl (Dulcolax) 5 mg DAILY PRN PO .CONSTIPATION; Start 03/04/19 at 23:30 Neomycin/ Polymyxin/ Bacitracin (Neosporin Topical Oint) 1 applic BID TOP ; Start 03/06/19 at 12:30 MAURA FOX Mar 06, 2019 14:58
[2019-03-06] MEDS: NEOMYC/POLYMYX/BACIT 30 GM OINT TOP SCH ×2 (16:28→20:40)
[2019-03-06] MEDS: MEGESTROL (40 MG/ML) 10ML CUP PO SCH (20:40)
[2019-03-06] MEDS: DIVALPROEX (EC) 500 MG TAB PO SCH (20:40)
[2019-03-07] VITALS (12 sets, daily range): BP systolic 117–179; BP diastolic 67–89; PULSE 74–120; RESP 18
[2019-03-07] MEDS: MEGESTROL (40 MG/ML) 10ML CUP PO SCH (08:14)
[2019-03-07] MEDS: DIVALPROEX (EC) 500 MG TAB PO SCH ×3 (08:14→22:12)
[2019-03-07] MEDS: MULTIVITAMINS THERAPEUTIC TAB PO SCH (08:14)
[2019-03-07] MEDS: NEOMYC/POLYMYX/BACIT 30 GM OINT TOP SCH (08:14)
--- NOTE | 2019-03-07 09:47 | CONS ---
Assessment/Plan Assessment/Plan Assessment/Plan (Daily) Recurrent falls CAD with history of PCI April 2018 Preserved left ventricular ejection fraction History of traumatic subarachnoid hemorrhage Preserved left ejection fraction echocardiogram October 2018 Abdominal aortic aneurysm status post repair Patient with recurrent falls, patient complains of loss of balance. Denies chest pain, palpitations or dizziness prior to these episodes. Patient with numerous areas of ecchymosis and lacerations on his head. He did have PCI in 2018 which was done prior to abdominal aneurysm repair. We are approximately 11 months post PCI, I think the risks of antiplatelet therapy outweigh the benefits, especially given also patient with recent sub-arachnoid hemorrhage which was traumatic. I would hold Plavix at the current time Patient's heart rate on telemetry also in the 40s to 50s. He is currently on metoprolol. I would hold at the current time as well. Continue telemetry monitoring Consultation Date/Type/Reason Admit Date/Time Mar 06, 2019 at 11:40 Initial Consult Date Type of Consult Cardiology Date/Time of Note DATE: 03/07/19 TIME: 09:47 24 HR Interval Summary Free Text/Dictation the patient with no cahgne Exam/Review of Systems Vital Signs Vitals Vital Signs Date Temp Pulse Resp B/P (MAP) Pulse Ox O2 O2 Flow FiO2 Time Delivery Rate 03/07/19 94 08:00 03/07/19 98.1 18 152/82 96 07:32 (105) 03/05/19 Room Air 15:30 Intake and Output 03/06/19 03/06/19 03/07/19 1515:00 23:00 07:00 IntakeIntake Total 600 ml 360 ml 270 ml OutputOutput Total 1400 ml 2000 ml BalanceBalance -800 ml 360 ml -1730 ml Labs Result Diagram: 03/05/1933 03/05/19 0533 Medications Medications Current Medications IV Flush (NS 3 ml) 3 ml PER PROTOCOL IV ; Start 03/04/19 at 23:30 Ondansetron HCl (Zofran Inj) 4 mg Q6H PRN IV NAUSEA/VOMITING; Start 03/04/19 at 23:30 Acetaminophen (Tylenol Tab) 650 mg Q6H PRN PO .PAIN 1-3 OR TEMP; Start 03/04/19 at 23:30 Docusate Sodium (Colace) 100 mg Q12H PRN PO .CONSTIPATION; Start 03/04/19 at 23:30 Bisacodyl (Dulcolax) 5 mg DAILY PRN PO .CONSTIPATION; Start 03/04/19 at 23:30 Neomycin/ Polymyxin/ Bacitracin (Neosporin Topical Oint) 1 applic BID TOP Last administered on 03/07/19 08:14; Admin Dose 1 APPLIC; Start 03/06/19 at 12:30 Divalproex Sodium (Depakote) 500 mg TID PO Last administered on 03/07/19 08:14; Admin Dose 500 MG; Start 03/06/19 at 21:00 Megestrol Acetate (Megace Susp) 400 mg BID PO Last administered on 03/07/19 08:14; Admin Dose 400 MG; Start 03/06/19 at 21:00 Multivitamins Therapeutic (Theragran) 1 tab DAILY PO Last administered on 03/07/19 08:14; Admin Dose 1 TAB; Start 03/07/19 at 09:00 PRAVIN VALENCIA MD Mar 07, 2019 09:47
--- NOTE | 2019-03-07 16:09 | PN ---
Date/Time of Note Date/Time of Note DATE: 03/07/19 TIME: 16:08 Assessment/Plan VTE Prophylaxis Risk score (from Ns)>0 risk: 5 SCD applied (from [facility]sg): Yes Pharmacological prophylaxis: heparin Lines/Catheters IV Catheter Type (from Nrs): Saline Lock Urinary Cath still in place: Yes Reason Cath still needed: urinary retention Assessment/Plan Hospital Course Exam Appears comfortable Diffuse ecchymosis of face/arms RRR CTAB 1. Syncope Etiology possible secondary to bradycardia versus orthostatic hypotension Recent echo showed EF 65% Have discontinued beta-kailey and CODY inhibitor Cardiology consultation appreciated 2. Scalp laceration Wound care consult Status post 2 units of platelets given thrombocytopenia 3. History of subarachnoid hemorrhage CT scan does not show any acute abnormalities shows resolution of previous hemorrhage 4. Mild to moderate dementia Per family patient has been exhibiting signs of dementia with loss of short-term memory Patient resides in board and care 5. Peripheral vascular disease Continue statin, hold aspirin, Plavix given bleed and likely will need to discontinue this long-term given his frequent falls and history of subarachnoid hemorrhage 6. Repeated falls PT and OT evaluation Patient comes from home and lives with a caregiver but may require long term facility, mattress spring encaser aware 7. History of partial gastrectomy: No acute issues 8. Hypertension: DC metoprolol and CODY inhibitor as patient does become bradycardic, will allow for systolic blood pressure up to 150 due to patient's repeated falls and age 8. H/o Bioplar disorder as per history 9. History of coronary disease status post stent placement Continue statin, hold aspirin Plavix secondary to intracranial hemorrhage, DC metoprolol as patient is bradycardic with falls Cardiology consultation appreciated Prophylaxis: SCDs DC planning: Follow-up with PT and OT recommendations, patient may require custodial placement, mattress spring encaser aware Result Diagram: 03/05/19 0503/05/19 05 Subjective 24 Hr Interval Summary Constitutional: no complaints, improved Eyes: no complaints ENT: no complaints Respiratory: no complaints Cardiovascular: no complaints Gastrointestinal: no complaints Genitourinary: no complaints Musculoskeletal: no complaints Skin: no complaints Neurologic: no complaints Endocrine: no complaints Lymphatic: no complaints Psychological: no complaints, nl mood/affect Immunologic: no complaints Exam/Review of Systems Exam Vitals Vital Signs Date Temp Pulse Resp B/P (MAP) Pulse Ox O2 O2 Flow FiO2 Time Delivery Rate 03/07/19 98.1 99 18 118/79 96 15:10 (92) 03/05/19 Room Air 15:30 Intake and Output 03/06/19 03/06/19 03/07/19 1515:00 23:00 07:00 IntakeIntake Total 600 ml 360 ml 270 ml OutputOutput Total 1400 ml 2000 ml BalanceBalance -800 ml 360 ml -1730 ml Medications Medication Current Medications IV Flush (NS 3 ml) 3 ml PER PROTOCOL IV ; Start 03/04/19 at 23:30 Ondansetron HCl (Zofran Inj) 4 mg Q6H PRN IV NAUSEA/VOMITING; Start 03/04/19 at 23:30 Acetaminophen (Tylenol Tab) 650 mg Q6H PRN PO .PAIN 1-3 OR TEMP; Start 03/04/19 at 23:30 Docusate Sodium (Colace) 100 mg Q12H PRN PO .CONSTIPATION; Start 03/04/19 at 23:30 Bisacodyl (Dulcolax) 5 mg DAILY PRN PO .CONSTIPATION; Start 03/04/19 at 23:30 Neomycin/ Polymyxin/ Bacitracin (Neosporin Topical Oint) 1 applic BID TOP Last administered on 03/07/19at 08:14; Admin Dose 1 APPLIC; Start 03/06/19 at 12:30 Divalproex Sodium (Depakote) 500 mg TID PO Last administered on 03/07/19at 12:42; Admin Dose 500 MG; Start 03/06/19 at 21:00 Megestrol Acetate (Megace Susp) 400 mg BID PO Last administered on 03/07/19 08:14; Admin Dose 400 MG; Start 03/06/19 at 21:00 Multivitamins Therapeutic (Theragran) 1 tab DAILY PO Last administered on 03/07/19at 08:14; Admin Dose 1 TAB; Start 03/07/19 at 09:00 YESSICA PENALOZA MD Mar 07, 2019 16:09
[2019-03-08] VITALS (14 sets, daily range): BP systolic 122–148; BP diastolic 52–89; PULSE 62–94; RESP 18–20
[2019-03-08] MEDS: DIVALPROEX (EC) 500 MG TAB PO SCH ×3 (08:12→20:45)
[2019-03-08] MEDS: MULTIVITAMINS THERAPEUTIC TAB PO SCH (08:12)
--- NOTE | 2019-03-08 15:07 | PN ---
Date/Time of Note Date/Time of Note DATE: 03/08/19 TIME: 15:06 Assessment/Plan VTE Prophylaxis Risk score (from Nsg)>0 risk: 5 SCD applied (from Nsg): Yes Pharmacological prophylaxis: heparin Lines/Catheters IV Catheter Type (from Nrsg): Saline Lock Urinary Cath still in place: Yes (condom catheter) Reason Cath still needed: urinary retention Assessment/Plan Hospital Course Exam Appears comfortable Diffuse ecchymosis of face/arms RRR CTAB 1. Syncope Etiology possible secondary to bradycardia versus orthostatic hypotension Recent echo showed EF 65% Have discontinued beta-kailey and CODY inhibitor Cardiology consultation appreciated 2. Scalp laceration Wound care consult Status post 2 units of platelets given thrombocytopenia 3. History of subarachnoid hemorrhage CT scan does not show any acute abnormalities shows resolution of previous hemorrhage 4. Mild to moderate dementia Per family patient has been exhibiting signs of dementia with loss of short-term memory Patient resides in board and care 5. Peripheral vascular disease Continue statin, hold aspirin, Plavix given bleed and likely will need to discontinue this long-term given his frequent falls and history of subarachnoid hemorrhage 6. Repeated falls PT and OT evaluation Patient comes from home and lives with a caregiver but may require retirement facility, senior case manager aware 7. History of partial gastrectomy: No acute issues 8. Hypertension: DC metoprolol and CODY inhibitor as patient does become bradycardic, will allow for systolic blood pressure up to 150 due to patient's repeated falls and age 8. H/o Bioplar disorder as per history 9. History of coronary disease status post stent placement Continue statin, hold aspirin Plavix secondary to intracranial hemorrhage, DC metoprolol as patient is bradycardic with falls Cardiology consultation appreciated Prophylaxis: SCDs DC planning: SNF placement pending Result Diagram: 03/05/19 0533 03/05/19 0533 Subjective 24 Hr Interval Summary Free Text/Dictation Comfortable, no change to status Awaiting SNF placement Exam/Review of Systems Exam Vitals Vital Signs Date Temp Pulse Resp B/P (MAP) Pulse Ox O2 O2 Flow FiO2 Time Delivery Rate 03/08/19 87 13:35 03/08/19 98.5 20 140/89 96 11:03 (106) 03/08/19 Room Air 07:33 Intake and Output 03/07/19 03/07/19 03/08/19 1515:00 23:00 07:00 IntakeIntake Total 360 ml 240 ml 100 ml OutputOutput Total 900 ml 300 ml BalanceBalance 360 ml -660 ml -200 ml Medications Medication Current Medications IV Flush (NS 3 ml) 3 ml PER PROTOCOL IV ; Start 03/04/19 at 23:30 Ondansetron HCl (Zofran Inj) 4 mg Q6H PRN IV NAUSEA/VOMITING; Start 03/04/19 at 23:30 Acetaminophen (Tylenol Tab) 650 mg Q6H PRN PO .PAIN 1-3 OR TEMP; Start 03/04/19 at 23:30 Docusate Sodium (Colace) 100 mg Q12H PRN PO .CONSTIPATION; Start 03/04/19 at 23:30 Bisacodyl (Dulcolax) 5 mg DAILY PRN PO .CONSTIPATION; Start 03/04/19 at 23:30 Divalproex Sodium (Depakote) 500 mg TID PO Last administered on 03/08/19at 12:41; Admin Dose 500 MG; Start 03/06/19 at 21:00 Multivitamins Therapeutic (Theragran) 1 tab DAILY PO Last administered on 03/08/19at 08:12; Admin Dose 1 TAB; Start 03/07/19 at 09:00 YESSICA PENALOZA MD Mar 08, 2019 15:07
[2019-03-09] VITALS (10 sets, daily range): BP systolic 119–141; BP diastolic 55–83; PULSE 79–96; RESP 16–20
[2019-03-09] MEDS: ACETAMINOPHEN 325 MG TAB PO PRN ×2 (02:59→13:12)
[2019-03-09] MEDS: MULTIVITAMINS THERAPEUTIC TAB PO SCH (08:35)
[2019-03-09] MEDS: DIVALPROEX (EC) 500 MG TAB PO SCH ×2 (08:35→12:47)
--- NOTE | 2019-03-09 13:58 | DS ---
Date/Time of Note Date/Time of Note DATE: 03/09/19 TIME: 13:57 Discharge Summary Admission/Discharge Info Admit Date/Time Mar 06, 2019 at 11:40 Discharge Date/Time Discharge Diagnosis Syncope Patient Condition: Stable Hospital Course Presented after syncope 1. Syncope: Etiology possible secondary to bradycardia versus orthostatic hypotension Recent echo showed EF 65% Under guidance from cardiology we discontinued beta-kailey and CODY inhibitor 2. Scalp laceration Wound care consult Status post 2 units of platelets given thrombocytopenia 3. History of subarachnoid hemorrhage CT scan does not show any acute abnormalities shows resolution of previous hemorrhage 4. Mild to moderate dementia Per family patient has been exhibiting signs of dementia with loss of short-term memory Patient resides in board and care 5. Peripheral vascular disease Continue statin, hold aspirin, Plavix given bleed and likely will need to discontinue this long-term given his frequent falls and history of subarachnoid hemorrhage 6. Repeated falls PT and OT evaluation Patient comes from home and lives with a caregiver but may require care home facility, clinical case manager aware 7. History of partial gastrectomy: No acute issues 8. Hypertension: DC metoprolol and CODY inhibitor as patient does become bradycardic, will allow for systolic blood pressure up to 150 due to patient's repeated falls and age 8. H/o Bioplar disorder as per history 9. History of coronary disease status post stent placement Continue statin, hold aspirin Plavix secondary to intracranial hemorrhage, DC metoprolol as patient is bradycardic with falls Cardiology consultation appreciated Prophylaxis: SCDs DC planning: SNF placement pending Home Meds Reported Medications Divalproex Sodium* (Depakote*) 500 Mg Tablet.dr, 500 MG PO TID, #90 TAB 10/29/18 Discontinued Reported Medications Lisinopril* (Lisinopril*) 5 Mg Tablet, 5 MG PO DAILY for 90 Days, #90 03/05/19 Clopidogrel Bisulfate (Clopidogrel) 75 Mg Tablet, 75 MG PO DAILY for 90 Days, #90 03/05/19 Metoprolol Tartrate* (Lopressor*) 25 Mg Tab, 25 MG PO BID for 30 Days, #60 03/05/19 Megestrol Acetate* (Megestrol Acetate*) 400 Mg/10 Ml Susp, 400 MG PO BID, ML 03/05/19 Temazepam* (Temazepam*) 30 Mg Capsule, 30 MG PO HS PRN for INSOMNIA, CAP 10/29/18 Simvastatin* (Zocor*) 40 Mg Tablet, 40 MG PO QHS, #30 TAB 10/29/18 Potassium Chloride* (K-Dur*) 10 Meq Tab.prt.sr, 10 MEQ PO DAILY, TAB 10/29/18 Esomeprazole Mag Trihydrate (Nexium) 40 Mg Capsule.dr, 40 MG PO DAILY, #30 CAP 10/29/18 Primary Care Provider MD [place] Adam,YESSICA Cleaning MD Mar 09, 2019 13:58
--- NOTE | 2019-03-09 22:35 | CONS ---
Assessment/Plan Assessment/Plan Hospital Course (Demo Recall) Recurrent falls CAD with history of PCI April 2018 Preserved left ventricular ejection fraction History of traumatic subarachnoid hemorrhage Preserved left ejection fraction echocardiogram October 2018 Abdominal aortic aneurysm status post repair HR trend overall better Continue physical therapy Consultation Date/Type/Reason Admit Date/Time Mar 06, 2019 at 11:40 Initial Consult Date Type of Consult Cardiology Date/Time of Note DATE: 03/09/19 TIME: 22:33 24 HR Interval Summary Free Text/Dictation no dizziness,cp,sob Exam/Review of Systems Vital Signs Vitals Vital Signs Date Temp Pulse Resp B/P (MAP) Pulse Ox O2 O2 Flow FiO2 Time Delivery Rate 03/09/19 98.1 84 16 141/83 98 Room Air 16:20 (102) Intake and Output 03/08/19 03/08/19 03/09/19 1515:00 23:00 07:00 IntakeIntake Total 720 ml 753 ml OutputOutput Total 400 ml 600 ml BalanceBalance 720 ml -400 ml 153 ml Exam Constitutional: alert, oriented, frail Respiratory: other (course bs, no wheeze) Cardiovascular: regular rate and rhythm (s1s2) Gastrointestinal: soft, non-tender, bowel sounds Extremities: other (no edema) Labs Result Diagram: 03/05/19 0533 03/05/19 0533 Mitch Hwang DO Mar 09, 2019 22:35
== END 2019-03-09 16:35 | DRG 312 ==
LOC: E/R 21:05 → 6WM 23:05 → OBSVTOIN 03-06 11:40
PROVIDERS: ADMIT Family Medicine; ATTEND Internal Medicine
PROC: 30233R1 Transfusion of Nonautologous Platelets into Peripheral Vein, Percutaneous Approach (ICD-10-PCS; principal; 2019-03-05)
DX: R55 Syncope and collapse (principal); E44.0 Moderate protein-calorie malnutrition; R00.1 Bradycardia, unspecified; D69.6 Thrombocytopenia, unspecified; G40.909 Epilepsy, unspecified, not intractable, without status epilepticus; F03.90 Unspecified dementia, unspecified severity, without behavioral disturbance, psychotic disturbance, mood disturbance, and anxiety; I73.9 Peripheral vascular disease, unspecified; F31.9 Bipolar disorder, unspecified; I25.10 Atherosclerotic heart disease of native coronary artery without angina pectoris; K21.9 Gastro-esophageal reflux disease without esophagitis; E78.5 Hyperlipidemia, unspecified; I10 Essential (primary) hypertension; R29.6 Repeated falls; S01.01XA Laceration without foreign body of scalp, initial encounter; T42.6X5A Adverse effect of other antiepileptic and sedative-hypnotic drugs, initial encounter; Z68.21 Body mass index [BMI] 21.0-21.9, adult; W01.0XXA Fall on same level from slipping, tripping and stumbling without subsequent striking against object, initial encounter; Y92.019 Unspecified place in single-family (private) house as the place of occurrence of the external cause; Y93.89 Activity, other specified; Y99.8 Other external cause status; Z79.82 Long term (current) use of aspirin; Z79.02 Long term (current) use of antithrombotics/antiplatelets; Z91.81 History of falling; Z87.891 Personal history of nicotine dependence; Z90.3 Acquired absence of stomach [part of]; Z95.5 Presence of coronary angioplasty implant and graft
CPT/HCPCS: 36415; 36430; 70450; 80048; 80053; 80061; 80164; 82962; 83036; 84443; 84484; 85025; 85610; 85730; 86644; 86850; 86900; 86901; 86945; 93005; 93306; 97116; 97163; 97530; G0378; J7040; P9035